=== PATIENT | male | born 1955 | race Caucasian/White ===

== ENCOUNTER → 2018-12-24 12:15 | Outpatient (CLI) | payer SELFPAY ==
[2016-05-06 00:45] VITALS: BMI 44.3
[2018-12-24 12:50] LABS: Absolute Lymphocyte Count 0.75 X10^3/ul (0.83-4.51); Absolute Neutrophil Count 3.4 X10^3/uL (2.0-7.7); Basophil# 0.02 X10^3/uL; Basophil% 0.4 % (0-1); Eosinophil# 0.51 X10^3/uL; Eosinophils% 9.6 % (0-5); Hematocrit 27.6 % (40-54); Hemoglobin 8.7 g/dl (13.0-16.5); Lymphocyte # 0.75 X10^3/ul (4.0); Lymphocyte % 14.2 % (19-41); Mean Corp Hgb Conc 31.5 g/gl (32-36); Mean Corpuscular Hgb 30.9 pg (27.0-32.0); Mean Corpuscular Volume 97.9 fL (80-94); Mean Platelet Vol. 9.3 fl (6.2-12.0); Monocyte# 0.58 X10^3/uL; Neutrophil # 3.42 X10^3/uL (2.7-7.7); Neutrophil % 64.6 % (47-70); Platelet Count 214 K/mm3 (150-450); RBC Distribution Width CV 18.9 % (11.6-14.6); RBC Distribution Width SD 67.5 fl (35.1-43.9); Red Blood Count 2.82 M/mm3 (4.6-6.2); White Blood Count 5.3 K/mm3 (4.4-11.0)
[2018-12-24 12:54] LABS: Differential Indicated SCAN CRITERIA MET; POSITIVE COUNT NO; POSITIVE DIFFERENTIAL NO; POSITIVE MORPHOLOGY YES
[2018-12-24 13:13] LABS: Anion Gap 11 (5-15); BUN 52 mg/dL (7-18); BUN/Creat Ratio 27.2 RATIO (10-20); Calcium,Total 8.1 mg/dL (8.5-10.1); Chloride 98 mmol/L (98-107); Creatinine, Serum 1.91 mg/dL (0.70-1.30); EST Glomerular Filtration Rate 38 mL/min (>60); Est Glom Filt Rate - Afr Amer 46 mL/min (>60); Glucose 116 mg/dL (74-106); Potassium 4.8 mmol/L (3.5-5.1); Sodium Level 135 mmol/L (136-145)
== END ==
PROVIDERS: Family Provider Preventive Medicine Occupational Medicine; PCP Preventive Medicine Occupational Medicine; Referring Provider Family Medicine; Visit Provider Family Medicine
DX: N18.9 Chronic kidney disease, unspecified (principal); D64.9 Anemia, unspecified
CPT/HCPCS: 80048; 85025

== ENCOUNTER → 2019-12-21 16:36 | Outpatient (CLI) | payer BC, SELFPAY ==
[2016-05-06 00:45] VITALS: BMI 44.3
== END ==
PROVIDERS: PCP Preventive Medicine Occupational Medicine; Referring Provider Preventive Medicine Occupational Medicine; Visit Provider Preventive Medicine Occupational Medicine
DX: E11.9 Type 2 diabetes mellitus without complications (principal); I10 Essential (primary) hypertension; E78.5 Hyperlipidemia, unspecified; D50.9 Iron deficiency anemia, unspecified; Z12.5 Encounter for screening for malignant neoplasm of prostate
CPT/HCPCS: 36415

== ENCOUNTER 2021-05-30 10:24 | Inpatient (IN) | payer MEDICARE, OTHER, SELFPAY ==
[2021-05-30] VITALS (11 sets, daily range): BP systolic 102–115; BP diastolic 53–83; PULSE 62–75; RESP 15–18; TEMP 36.4–37.1; O2SAT 91–100; BMI 44.5; BMI 44.0
[2021-05-30 10:30] LABS: Bedside Glucose 54 mg/dL (70-110)
--- NOTE | 2021-05-30 10:41 | EKG12_ITS ---
Test Reason : FALL Blood Pressure : / mmHG Vent. Rate : 075 BPM Atrial Rate : 074 BPM P-R Int : 272 ms QRS Dur : 166 ms QT Int : 486 ms P-R-T Axes : 000 141 021 degrees QTc Int : 542 ms Sinus rhythm with 1st degree A-V block Right bundle branch block Abnormal ECG Confirmed by RAFFI MARTELL, ROD ([id number]), editor at large TRISTON SCHMITZ ([id number]) on 06/01/2021 9:24:31 AM Referred By: SYLVAIN Confirmed By:RONALD NUGENT MD
[2021-05-30] MEDS: Dextrose 50%-Water 25 GM/50 ML DISP.SYRIN IV (10:49)
[2021-05-30 11:45] LABS: Bedside Glucose 99 mg/dL (70-110)
--- NOTE | 2021-05-30 13:14 | EDS_ITS ---
HPI History of Present Illness Chief Complaint: Hypoglycemia Informant: patient Narrative Narrative: Patient was in the shower and started feeling shaky and lightheaded and had a syncopal episode. He was holding onto a railing in the shower and let himself down easily without falling and injuring himself. He states he also had a minor injury from a similar episode 4 or 5 days ago. He hit the side of his neck and had seen a chiropractor for it who did some adjustments that helped. He denies any numbness or tingling anywhere or neurologic symptoms otherwise. He denies feeling any prodromal chest pain or shortness of breath. He states he has been on a keto diet trying to lose weight which has been successful, for the past 5 months, and he is eating a lot less carbs. He is a type II diabetic and on insulin, he has decreased his dose accordingly, and keeping track of how much carbohydrate he is eating every day. He states his blood sugars have been good, between 100-150 most days. Today was 85 which is lower than usual. EMS responded after his episode today, his blood sugar was 58, they gave him glucose, and afterwards it was 57. He was alert and somnolent. He still feels that way now denies any other symptoms. No recent illness. He states he was feeling fine before this happened. He admits that he did not eat much in the way of carbohydrate for breakfast this morning despite taking his insulin although he did eat. He has had really nothing to drink. [facility] Medical History (Updated 05/30/21 @ 15:[address] Candelario Humphrey MD) Asthma Atrial fibrillation BiPAP (biphasic positive airway pressure) dependence Diabetes Former smoker Hernia Hypertension Irregular heart beat Sleep apnea Home Medications aspirin 81 mg PO DAILY@0800 05/05/16 [History Last Taken 05/30/21] furosemide 40 mg PO DAILY 05/05/16 [History Last Taken 05/30/21] glipizide 5 mg PO DAILY 05/05/16 [History Last Taken 05/30/21] glipizide 10 mg PO QHS 05/05/16 [History Last Taken 05/29/21] lisinopril 5 mg PO QHS 05/05/16 [History Last Taken 05/29/21] tramadol 100 mg PO Q6H PRN PRN 05/06/16 [History Last Taken 05/30/21] allopurinol 300 mg PO DAILY #1 tablet 05/07/16 [Rx Last Taken 05/30/21] Xarelto 10 mg PO DAILY 05/30/21 [History Last Taken 05/29/21] ascorbic acid (vitamin C) 1 g PO DAILY 05/30/21 [History Last Taken 05/30/21] cholecalciferol (vitamin D3) 250 mcg PO DAILY 05/30/21 [History Last Taken 05/29/21] doxycycline hyclate 100 mg PO BID 05/30/21 [History Last Taken 05/30/21] ezetimibe 10 mg PO QHS 05/30/21 [History Last Taken 05/29/21] ferrous sulfate 325 mg PO DAILY 05/30/21 [History Last Taken 05/30/21] gabapentin 600 mg PO QHS 05/30/21 [History Last Taken 05/29/21] insulin glargine U-300 conc [Toujeo Max U-300 SoloStar] 18 unit SUBCUT DAILY 05/30/21 [History Last Taken 05/30/21] liraglutide [Victoza 3-Maksim] 0.6 mg SUBCUT DAILY 05/30/21 [History Last Taken 05/30/21] metformin 500 mg PO BID 05/30/21 [History Last Taken 05/30/21] omeprazole 40 mg PO DAILY 05/30/21 [History Last Taken 05/30/21] sotalol 160 mg PO BID 05/30/21 [History Last Taken 05/30/21] zinc 50 mg PO DAILY 05/30/21 [History Last Taken 05/29/21] Allergy/AdvReac Type Severity Reaction Status Date / Time azithromycin [From Zithromax] Allergy Unknown Verified 05/05/16 19:38 Sulfa (Sulfonamide Allergy Unknown Verified 05/05/16 19:38 Antibiotics) Surgical History (Updated 05/30/21 @ 10:37 by Hillary Reese) Hx of tonsillectomy Social History Smoking Status: Former smoker ROS ROS ED Constitutional Constitutional ED: Reports as per HPI and malaise; Denies chills or fever(s) Eyes Eyes: Denies change in vision or diplopia ENT ENT ED: Denies rhinorrhea or sore throat Cardiovascular Cardiovascular: Denies chest pain or palpitations Respiratory/Chest Respiratory/Chest: Denies cough or dyspnea Gastrointestinal Gastrointestinal: Denies abdominal pain, diarrhea, nausea or vomiting Genitourinary Genitourinary ED: Denies dysuria or hematuria Musculoskeletal Musculoskeletal: Denies back pain or neck pain Integumentary Denies abscess or rash Neurologic Neurologic: Denies headache(s), paresthesias or weakness Psychiatric Psychiatric: Denies anxiety or suicidal thoughts EXAM Physical Exam Const Vital Signs: 05/30/21 10:25 05/30/21 10:31 05/30/21 13:16 Temperature 97.6 F L 97.6 F L Temperature Source Oral Oral Pulse Rate 75 75 62 Respiratory Rate 18 18 16 Blood Pressure 115/83 H 115/83 H 102/53 L Blood Pressure Mean 93 93 69 Pulse Ox 91 97 98 Oxygen Delivery Method Room Air Room Air Oxygen Flow Rate (L/min) 2 05/30/21 14:04 05/30/21 14:52 Temperature Temperature Source Pulse Rate 64 66 Respiratory Rate 16 18 Blood Pressure 108/61 112/82 H Blood Pressure Mean 76 92 Pulse Ox 100 100 Oxygen Delivery Method Room Air Oxygen Flow Rate (L/min) Positive well nourished, well developed and obese Constitutional Narrative: Somnolent but alerts easily to voice and conversive, does not require repeat stimulation to remain alert General Appearance ED: well developed and NAD Nutritional Appearance: obese HEENT Reports moist mucous membranes normocephalic and atraumatic Eyes PERRL and EOMs intact bilaterally Neck full ROM and supple Resp normal respiratory effort and clear to auscultation bilaterally Cardio regular rate, regular rhythm and no murmurs Rate: Negative for tachycardic GI non-tender and non-distended Auscultation: normoactive bowel sounds Palpation: soft Back/Spine no CVA tenderness General Back: other FROM Extremity Extremity Narrative: Chronic bilateral lower extremity symmetric edema with signs of stasis dermatitis and a couple of abrasions that do not appear to be infected or tender. General Extremety ED: Yes edema; Negative for pulses abnormal or tenderness General Extremity: edema; Negative for pulses abnormal Neuro oriented x3, CN's II-XII intact bilaterally and no sensory deficits noted Sensorium / Orientation: awake and alert Motor Exam: strength 5/5 throughout Skin no rashes or lesions noted and no wounds MDM MDM MDM Narrative Medical decision making narrative: Patient was given IV D50 and given something oral to eat. On reevaluation his blood sugar is 99, he is still somnolent although he states he feels a little better, and his systolic blood pressure is 72. Therefore, he was given IV fluids as he is likely somewhat dehydrated, and labs were obtained; his blood pressure came up to over 100. His EKG has artifact, but does not show anything acute. He does have some PVCs with it. The morphology and axis is otherwise unchanged grossly. Given this and his sugar better and still lethargic, I ordered some IV fluids and some more testing. He is uremic and has acute renal failure with an elevated troponin, no evidence of a STEMI or acute ischemia on the EKG. Plan is for admission to PCU. Lab Data Attestation: I reviewed the patient's lab results. Labs: Laboratory Results - last 24 hr 05/30/21 05/30/21 05/30/21 10:26 11:39 13:15 WBC 8.3 RBC 3.52 L Hgb 11.2 L Hct 34.5 L MCV 98.0 H MCH 31.8 MCHC 32.5 RDW Std Deviation 59.9 H RDW Coeff of Miguel 16.7 H Plt Count 150 MPV 10.1 Immature Gran % (Auto) 0.700 Neut % (Auto) 83.4 H Lymph % (Auto) 6.4 L [place] % (Auto) 6.9 Eos % (Auto) 2.1 Baso % (Auto) 0.5 Absolute Neuts (auto) 6.9 Absolute Lymphs (auto) 0.53 L Nucleated RBC % 0 Sodium Potassium Chloride Carbon Dioxide Anion Gap BUN Creatinine Estim Creat Clear Calc Est GFR (MDRD) Af Amer Est GFR (MDRD) Non-Af BUN/Creatinine Ratio Glucose Calcium Troponin I High Sens POC Glucose 54 L 99 05/30/21 13:15 WBC RBC Hgb Hct MCV MCH MCHC RDW Std Deviation RDW Coeff of Miguel Plt Count MPV Immature Gran % (Auto) Neut % (Auto) Lymph % (Auto) [place] % (Auto) Eos % (Auto) Baso % (Auto) Absolute Neuts (auto) Absolute Lymphs (auto) Nucleated RBC % Sodium 131 L Potassium 4.7 Chloride 102 Carbon Dioxide 20.0 L Anion Gap 9 BUN 125 H* Creatinine 3.81 H Estim Creat Clear Calc 19.96 Est GFR (MDRD) Af Amer 21 L Est GFR (MDRD) Non-Af 17 L BUN/Creatinine Ratio 32.8 H Glucose 124 H Calcium 7.5 L Troponin I High Sens 139.1 H* POC Glucose EKG Initial EKG: Interpretation: Sinus Rhythm, No Acute Injury Pattern and LAFB Comments: PVCs Prior EKG tracings: available for review Prior: Unchanged Discharge Plan Dx/Rx/DC Orders Clinical Impression: BELLA (acute kidney injury), Dehydration, Syncope, Diabetic hypoglycemia Disposition Disposition: Acute Care Hospital [facility]
[2021-05-30] MEDS: 0.9% Normal Saline 1,000 ML 999 ML IV (13:20)
[2021-05-30 13:28] LABS: Absolute Lymphocyte Count 0.53 X10^3/uL (0.83-4.51); Absolute Neutrophil Count 6.9 X10^3/uL (2.0-7.7); Basophil# 0.04 X10^3/uL; Basophil% 0.5 % (0-1); Eosinophil# 0.17 X10^3/uL; Eosinophils% 2.1 % (0-5); Hematocrit 34.5 % (40-54); Hemoglobin 11.2 g/dL (13.0-16.5); Lymphocyte # 0.53 X10^3/ul (0.83-4.51); Lymphocyte % 6.4 % (19-41); Mean Corp Hgb Conc 32.5 g/dL (32-36); Mean Corpuscular Hgb 31.8 pg (27.0-32.0); Mean Platelet Vol. 10.1 fl (6.2-12.0); Monocyte# 0.57 X10^3/uL; Monocyte% 6.9 % (0-10); NRBC Flagged by Analyzer 0 % (0-5); Neutrophil % 83.4 % (47-70); POSITIVE DIFFERENTIAL YES; Platelet Count 150 K/mm3 (150-450); RBC Distribution Width CV 16.7 % (11.6-14.6); RBC Distribution Width SD 59.9 fl (35.1-43.9); Red Blood Count 3.52 M/mm3 (4.6-6.2); White Blood Count 8.3 K/mm3 (4.4-11.0)
[2021-05-30 13:31] LABS: Differential Indicated SCAN CRITERIA MET
[2021-05-30 13:48] LABS: Anion Gap 9 (5-15); BUN 125 mg/dL (7-18); BUN/Creat Ratio 32.8 RATIO (10-20); Calcium,Total 7.5 mg/dL (8.5-10.1); Chloride 102 mmol/L (98-107); Creatinine, Serum 3.81 mg/dL (0.70-1.30); EST Glomerular Filtration Rate 17 mL/min (>60); Est Glom Filt Rate - Afr Amer 21 mL/min (>60); Estimated Creatinine Clearance 19.96 ml/min; Glucose 124 mg/dL (74-106); Potassium 4.7 mmol/L (3.5-5.1); Sodium Level 131 mmol/L (136-145); Troponin-I HS 139.1 pg/mL (3.0-78.5)
--- NOTE | 2021-05-30 14:21 | NURSING ---
DR REEVES FOR DR NARAYAN
--- NOTE | 2021-05-30 15:06 | NURSING ---
PCU TERELETSKY DEHYDRATION, BELLA, ELEVATED TROP
[2021-05-30] MEDS: 0.9% Normal Saline 1,000 ML 175 ML IV (16:17)
[2021-05-30 16:35] LABS: Bedside Glucose 146 mg/dL (70-110)
--- NOTE | 2021-05-30 19:08 | PCM.HP.STD ---
HPI - General General Date of Admission: 05/30/21 Date of Service: 05/30/21 Chief Complaint: Syncopal episode, hypoglycemia HPI Narrative SMITA FAJARDO, is a 65 M who presents to the emergency room at [facility] after having a brief syncopal episode at home while he was in the shower. Squad responded to his home and upon arrival, his blood sugar was 58, and they gave him glucose, afterwards it was 57., Patient states that he has been dieting at home and he is attempted to lose weight cutting back on his carbohydrates. Work-up in the emergency room included a CBC which was abnormal for a hemoglobin of 11.2, chemistry profile was obtained which was abnormal for a BUN of 125, creatinine of 3.81, and the patient's troponin was elevated at 139. Patient's sodium was slightly low at 131. Patient was given IV fluids, he will be admitted to PCU for acute kidney injury, he will be given IV fluids, and his cardiac enzymes will be cycled. I feel his troponin elevation is most probably secondary to his elevated creatinine. [facility] Medical History (Updated 05/30/21 @ 15:[address] Candelario Humphrey MD) Asthma Atrial fibrillation BiPAP (biphasic positive airway pressure) dependence Diabetes Former smoker Hernia Hypertension Irregular heart beat Sleep apnea Home Medications aspirin 81 mg PO DAILY@0800 05/05/16 [History Last Taken 05/30/21] furosemide 40 mg PO DAILY 05/05/16 [History Last Taken 05/30/21] glipizide 5 mg PO DAILY 05/05/16 [History Last Taken 05/30/21] glipizide 10 mg PO QHS 05/05/16 [History Last Taken 05/29/21] lisinopril 5 mg PO QHS 05/05/16 [History Last Taken 05/29/21] tramadol 100 mg PO Q6H PRN PRN 05/06/16 [History Last Taken 05/30/21] allopurinol 300 mg PO DAILY #1 tablet 05/07/16 [Rx Last Taken 05/30/21] Xarelto 10 mg PO DAILY 05/30/21 [History Last Taken 05/29/21] ascorbic acid (vitamin C) 1 g PO DAILY 05/30/21 [History Last Taken 05/30/21] cholecalciferol (vitamin D3) 250 mcg PO DAILY 05/30/21 [History Last Taken 05/29/21] doxycycline hyclate 100 mg PO BID 05/30/21 [History Last Taken 05/30/21] ezetimibe 10 mg PO QHS 05/30/21 [History Last Taken 05/29/21] ferrous sulfate 325 mg PO DAILY 05/30/21 [History Last Taken 05/30/21] gabapentin 600 mg PO QHS 05/30/21 [History Last Taken 05/29/21] insulin glargine U-300 conc [Toujeo Max U-300 SoloStar] 18 unit SUBCUT DAILY 05/30/21 [History Last Taken 05/30/21] liraglutide [Victoza 3-Maksim] 0.6 mg SUBCUT DAILY 05/30/21 [History Last Taken 05/30/21] metformin 500 mg PO BID 05/30/21 [History Last Taken 05/30/21] omeprazole 40 mg PO DAILY 05/30/21 [History Last Taken 05/30/21] sotalol 160 mg PO BID 05/30/21 [History Last Taken 05/30/21] zinc 50 mg PO DAILY 05/30/21 [History Last Taken 05/29/21] Allergy/AdvReac Type Severity Reaction Status Date / Time azithromycin [From Zithromax] Allergy Unknown Verified 05/05/16 19:38 Sulfa (Sulfonamide Allergy Unknown Verified 05/05/16 19:38 Antibiotics) Surgical History (Updated 05/30/21 @ 10:37 by Hillary Reese) Hx of tonsillectomy Social History Smoking Status: Former smoker ROS Constitutional Constitutional: Denies anorexia, chills, fatigue, fever(s) or night sweats Eyes Eyes: Denies blurry vision, change in vision or double vision ENT HEENT: Denies abnormal hearing, dysphagia, ear pain, headache(s) or hearing loss Cardiovascular Cardiovascular: Denies chest pain, claudication, dyspnea on exertion, edema or lightheadedness Respiratory/Chest Respiratory/Chest: Denies cough, dyspnea, excessive phlegm production, hemoptysis or productive cough Gastrointestinal Gastrointestinal: Denies abdominal pain, coffee ground emesis, diarrhea, dyspepsia or hematemesis Genitourinary Genitourinary: Denies burning urination, difficulty urinating, dysuria or hematuria Musculoskeletal Musculoskeletal: Denies arthralgias, back pain, joint pain or joint swelling Neurologic Neurologic: Reports syncope; Denies abnormal gait, abnormal speech or focal weakness Psychiatric Psychiatric: Denies anxiety or depression Endocrine Endocrinology: Denies change in body appearance, cold intolerance or heat intolerance Hematologic/Lymphatic Hematologic/Lymphatic: Denies anemia, easy bleeding, easy bruising or lymphadenopathy Allergic/Immunologic Allergic/Immunologic: Denies eczemia or asthma Vital Signs Vital Signs Vital Signs: 05/30/21 10:25 05/30/21 10:31 05/30/21 13:16 Temperature 97.6 F L 97.6 F L Temperature Source Oral Oral Pulse Rate 75 75 62 Respiratory Rate 18 18 16 Respiratory Effort Respiratory Depth Respiratory Pattern Blood Pressure 115/83 H 115/83 H 102/53 L Blood Pressure Mean 93 93 69 Blood Pressure Source Blood Pressure Position Blood Pressure Location Pulse Ox 91 97 98 Oxygen Delivery Method Room Air Room Air Oxygen Flow Rate (L/min) 2 05/30/21 14:04 05/30/21 14:52 05/30/21 15:08 Temperature 97.9 F Temperature Source Temporal Pulse Rate 64 66 66 Respiratory Rate 16 18 18 Respiratory Effort Respiratory Depth Respiratory Pattern Blood Pressure 108/61 112/82 H 113/66 Blood Pressure Mean 76 92 81 Blood Pressure Source Blood Pressure Position Blood Pressure Location Pulse Ox 100 100 100 Oxygen Delivery Method Room Air Oxygen Flow Rate (L/min) 05/30/21 15:39 05/30/21 15:42 05/30/21 16:52 Temperature 98.4 F Temperature Source Oral Pulse Rate 68 65 Respiratory Rate 15 Respiratory Effort Normal Non-Labored Respiratory Depth Normal Respiratory Pattern Normal Blood Pressure 103/63 Blood Pressure Mean 76 Blood Pressure Source Monitor Blood Pressure Position Semi-Fowlers Blood Pressure Location Right Arm Pulse Ox 96 Oxygen Delivery Method Room Air Room Air Oxygen Flow Rate (L/min) Weight Weight: 139.2 kg Body Mass Index (BMI) 44.0 Physical Exam Const alert, oriented x3, no apparent distress and healthy appearing General Appearance: cooperative, well kempt and well developed Orientation / Consciousness: awake, oriented to person, oriented to place and oriented to time HEENT normocephalic and moist oral mucous membranes Eyes PERRL, EOMs intact bilaterally and conjunctivae normal Neck nuchal rigidity, supple, no JVD, thyroid normal and no carotid bruits General: trachea midline Resp normal respiratory effort, no retractions, no use of accessory muscles and clear to auscultation bilaterally Auscultation: Negative for rales, rhonchi or wheezes Cardio regular rate, regular rhythm, S1 normal heart sound, S2 normal heart sound, no murmurs, no rub and no gallops GI normal to inspection, nondistended, normoactive bowel sounds, soft to palpation, non-tender and non-distended GI Narrative: Patient is morbidly obese Extremity no clubbing, cyanosis or edema Skin no rashes or lesions noted, no wounds and skin turgor normal General Skin Exam: no breakdown Neuro oriented x3, CN's II-XII intact bilaterally, no focal motor deficits and no sensory deficits noted Sensorium / Orientation: awake and alert Speech: speech normal Psych thought process normal and affect normal Results Lab / Micro Data Result Diagrams: 05/30/21 13:15 05/30/21 13:15 Labs: Laboratory Results - last 24 hr 05/30/21 10:26: POC Glucose 54 L 05/30/21 11:39: POC Glucose 99 05/30/21 13:15: WBC 8.3, RBC 3.52 L, Hgb 11.2 L, Hct 34.5 L, MCV 98.0 H, MCH 31.8, MCHC 32.5, RDW Std Deviation 59.9 H, RDW Coeff of Miguel 16.7 H, Plt Count 150, MPV 10.1, Immature Gran % (Auto) 0.700, Neut % (Auto) 83.4 H, Lymph % (Auto) 6.4 L, [place] % (Auto) 6.9, Eos % (Auto) 2.1, Baso % (Auto) 0.5, Absolute Neuts (auto) 6.9, Absolute Lymphs (auto) 0.53 L, Nucleated RBC % 0 05/30/21 13:15: Sodium 131 L, Potassium 4.7, Chloride 102, Carbon Dioxide 20.0 L, Anion Gap 9, BUN 125 H*, Creatinine 3.81 H, Estim Creat Clear Calc 19.96, Est GFR (MDRD) Af Amer 21 L, Est GFR (MDRD) Non-Af 17 L, BUN/Creatinine Ratio 32.8 H, Glucose 124 H, Calcium 7.5 L, Troponin I High Sens 139.1 H* 05/30/21 16:17: POC Glucose 146 H Assessment & Plan Assessment/Plan (1) BELLA (acute kidney injury): PLAN: 1. Probable acute kidney injury, I do not have a recent creatinine here on the patient, his last creatinine in 2019 according to hospital records here was 1.91-patient will be admitted to PCU, he will be given IV fluids, labs will be monitored, it may be necessary to contact his PCPs office tomorrow to ascertain his baseline creatinine #2 hypoglycemia-corrected at this time #3 type 2 diabetes-blood sugars will be monitored #4 elevated troponin-probably secondary to elevated creatinine, I will obtain serial troponin measurements #5 morbid obesity #6 obstructive sleep apnea-patient's brought in his BiPAP machine, he will use it while he is in the hospital here #7 syncope-secondary to hypoglycemia and acute kidney injury #8 paroxysmal atrial fibrillation-patient is currently taking Xarelto and sotalol, he is in sinus rhythm at this time #9 essential hypertension Charges/Coding Visit Charges Inpatient E&M: 78612 Init Hosp L3
[2021-05-30 21:56] LABS: Troponin-I HS 419.2 pg/mL (3.0-78.5)
[2021-05-30] MEDS: 0.9% Normal Saline 1,000 ML 125 ML IV (22:06)
[2021-05-30] MEDS: Gabapentin 300 MG Capsule 600 MG PO (22:14)
[2021-05-30] MEDS: Sotalol Hydrochloride 80 MG Tablet 160 MG PO (22:14)
--- NOTE | 2021-05-30 22:14 | ECHOD_ITS ---
Reason For Study: SYNCOPE Procedure This was a 2D Doppler, Color Flow transthoracic echocardiogram. The study was technically difficult. Exam performed portable in patient room. Left Ventricle Normal LV size. The estimated ejection fraction is 60-65 %. Unable to assess diastolic dysfunction. No regional wall motion abnormalities noted. Right Ventricle Mildly dilated right ventricle. Normal systolic function. Atria The left atrium is mildly enlarged. Normal right atrium. No doppler evidence for ASD. Mitral Valve There is moderate mitral annular calcification. There is no mitral valve stenosis. There is no mitral regurgitation noted. Tricuspid Valve There is no tricuspid stenosis. Trivial tricuspid valve insufficiency. Pulmonary artery systolic pressure is 70-75 mmHg. Aortic Valve Trisinus/trileaflet aortic valve. There is no aortic stenosis. No aortic valve insufficiency. Pulmonic Valve There is no pulmonic valvular stenosis. No pulmonic valve insufficiency. Great Vessels Mildly dilated aortic root. Pericardium/Pleural No pericardial effusion. Medication Definity deferred due to elevated PAP. MMode/2D Measurements & Calculations LVIDd: 4.8 cm IVSd: 1.3 cm Ao root diam: 4.1 cm LVIDs: 2.8 cm LVPWd: 1.2 cm RVDd: 4.6 cm FS: 42.8 % LAV(MOD-bp): 100.9 ml LA A4 area: 28.6 cm2 LA dimension(2D): 4.5 cm LAV(MOD-bp) Indexed: 40.4 ml/m2 LAV(MOD-sp2): 82.1 ml LAV(MOD-sp4): 88.4 ml RA A4 area: 26.4 cm2 Time Measurements MV dec time: 0.22 sec Doppler Measurements & Calculations MV E max florian: 103.1 cm/sec Lat Peak E' Florian: 4.0 cm/sec Med Peak E' Florian: 6.0 cm/sec MV A max florian: 52.9 cm/sec E/E' lat: 25.8 E/E' med: 17.2 MV E/A: 1.9 Ao V2 max: 134.2 cm/sec LV V1 max: 90.4 cm/sec TR max florian: 400.4 cm/sec Ao max P.3 mmHg LV V1 max P.3 mmHg TR max P.1 mmHg Ao V2 mean: 91.9 cm/sec LV V1 mean P.7 mmHg Ao mean P.9 mmHg LV V1 mean: 61.0 cm/sec Ao V2 VTI: 23.4 cm LV V1 VTI: 17.6 cm ECHO/Echo Complete Interpretation Summary The estimated ejection fraction is 60-65 %. Unable to assess diastolic dysfunction. Mildly dilated right ventricle. The left atrium is mildly enlarged. Pulmonary artery systolic pressure is 70-75 mmHg. Mildly dilated aortic root. Ordering Physician: Vesta Pritchett Referring Physician: KAYLEIGH NESS Performed By: Gita Hassan, RDCS, RVT
[2021-05-30] MEDS: Insulin Lispro 100 UNIT/ML INSULN.PEN SC (22:15)
[2021-05-30] MEDS: Acetaminophen 325 MG Tablet 650 MG PO (22:20)
[2021-05-30 22:56] LABS: Bedside Glucose 283 mg/dL (70-110)
[2021-05-31] VITALS (9 sets, daily range): BP systolic 96–140; BP diastolic 48–65; PULSE 60–71; RESP 16–18; TEMP 36.5–37.2; O2SAT 96–100
[2021-05-31 01:23] LABS: Absolute Lymphocyte Count 0.58 X10^3/uL (0.83-4.51); Absolute Neutrophil Count 3.9 X10^3/uL (2.0-7.7); Basophil# 0.02 X10^3/uL; Basophil% 0.4 % (0-1); Eosinophil# 0.19 X10^3/uL; Eosinophils% 3.6 % (0-5); Hematocrit 31.7 % (40-54); Hemoglobin 10.5 g/dL (13.0-16.5); Lymphocyte # 0.58 X10^3/ul (0.83-4.51); Mean Corp Hgb Conc 33.1 g/dL (32-36); Mean Corpuscular Hgb 32.4 pg (27.0-32.0); Mean Corpuscular Volume 97.8 fL (80-94); Mean Platelet Vol. 9.4 fl (6.2-12.0); Monocyte# 0.63 X10^3/uL; Monocyte% 11.9 % (0-10); NRBC Flagged by Analyzer 0 % (0-5); Neutrophil # 3.85 X10^3/uL (2.7-7.7); Neutrophil % 72.7 % (47-70); POSITIVE DIFFERENTIAL YES; Platelet Count 137 K/mm3 (150-450); RBC Distribution Width CV 16.5 % (11.6-14.6); RBC Distribution Width SD 59.6 fl (35.1-43.9); Red Blood Count 3.24 M/mm3 (4.6-6.2); White Blood Count 5.3 K/mm3 (4.4-11.0)
[2021-05-31 01:50] LABS: Differential Indicated SCAN CRITERIA MET
[2021-05-31 01:59] LABS: Troponin-I HS 423.6 pg/mL (3.0-78.5)
[2021-05-31 02:00] LABS: Anion Gap 10 (5-15); BUN 113 mg/dL (7-18); BUN/Creat Ratio 36.5 RATIO (10-20); Calcium,Total 7.5 mg/dL (8.5-10.1); Chloride 106 mmol/L (98-107); EST Glomerular Filtration Rate 22 mL/min (>60); Est Glom Filt Rate - Afr Amer 26 mL/min (>60); Estimated Creatinine Clearance 24.53 ml/min; Glucose 195 mg/dL (74-106); Potassium 4.5 mmol/L (3.5-5.1); Sodium Level 135 mmol/L (136-145)
[2021-05-31] MEDS: 0.9% Normal Saline 1,000 ML 125 ML IV (06:09)
[2021-05-31 06:40] LABS: Bedside Glucose 116 mg/dL (70-110)
[2021-05-31] MEDS: Aspirin 81 MG TAB.CHEW PO (08:42)
[2021-05-31] MEDS: Pantoprazole Sodium 40 MG Tablet PO (08:42)
[2021-05-31] MEDS: Sotalol Hydrochloride 80 MG Tablet 160 MG PO ×2 (08:42→21:44)
[2021-05-31] MEDS: Rivaroxaban 10 MG Tablet PO (08:43)
[2021-05-31] MEDS: Acetaminophen 325 MG Tablet 650 MG PO ×2 (08:50→16:10)
--- NOTE | 2021-05-31 11:10 | CASEMGMT ---
RN CM Face to Face with patient for initial transition planning/care coordination assessment. RN CM introduced self and role at [facility]. Patient lying in bed, alert and oriented. Patient willing to participate in assessment and is able to answer all questions appropriately. Care providers, pharmacy, and demographics verified. Patient wishes to discharge home, denies need for home health at this time. Patient states he has no further needs or concerns at this time. CM to follow for discharge planning needs that may arise. PCP: Gerri Specialists: Paramjit, chemotherapistParveen Preferred Pharmacy: [facility] Insurance: [facility], [facility] Prescription Benefit: yes, [employer] Living Will/HPOA: yes, Tenisha Centeno LNOK: Living Arrangements: Patient lives with in a single story home with no steps to enter the home. Patient states he is independent at home. Transportation: self/ DME/HHC: Patient states he has shower chair, grab bars, walker, bipap, and glucometer at home. Patient denies previous HHC or SNF. Disposition Plan: Patient to discharge home with family support and follow-up plans in place. Shirley HENDRICKS, RN, CM
[2021-05-31] MEDS: Insulin Lispro 100 UNIT/ML INSULN.PEN SC ×3 (12:02→21:49)
[2021-05-31 12:10] LABS: Bedside Glucose 198 mg/dL (70-110)
--- NOTE | 2021-05-31 12:44 | NURSING ---
Patient complaint of back and neck pain from fall at home. Patient given Tylenol per orders. Informed Dr. Gonzales of patient complaint of pain. Verbal order to continue with Tylenol administration.
[2021-05-31 13:14] LABS: Albumin, Serum 3.2 g/dL (3.2-5.0)
[2021-05-31] MEDS: 0.9% Normal Saline 1,000 ML 75 ML IV (14:01)
[2021-05-31 16:30] LABS: Bedside Glucose 300 mg/dL (70-110)
[2021-05-31 17:57] LABS: Bacteria 0 SEEN /hpf (None Seen); Mucous, Urine 0 SEEN /hpf (<or=2+); Red Blood Cells-Urine 0 SEEN /hpf (0-5); White Blood Cells 0 SEEN /hpf (0-5)
[2021-05-31 17:58] LABS: Color, Urine Yellow (Yellow); Glucose, Dipstick Normal (Normal); Ketone-Dipstick Negative (Negative); Leukocyte Esterase-Dipstick Negative /ul (Negative); Nitrite-Dipstick Negative (Negative); Occult Blood-Urine Negative /ul (Negative); Protein-Dipstick Negative (Negative); Urine Bilirubin Dipstick Negative (Negative); Urine Clarity Clear (Clear); Urine Urobilinogen Normal (Normal)
[2021-05-31 18:05] LABS: Squamous Epithelial Cells - UA 0-5 SEEN /hpf (0-5)
--- NOTE | 2021-05-31 19:31 | PCM.PN.HOSP ---
Subjective Subjective Patient was seen and examined today, his kidney functions appear improved today, he has chronic lower extremity stasis dermatitis changes as well as chronic edema, he states he has been to a vascular surgeon before and had a procedure done on his lower legs but was unable to describe the exact procedure to me. Patient complained to nursing today of various aches and pains and soreness where he fell and struck his back, patient pointed to an area on his scapula that was tender, I could not see any bruising there and it did not look swollen over the area. Objective Data Objective Data Vital Signs: Vital Signs Temp Pulse Resp BP Pulse Ox 98.3 F 71 16 120/58 L 96 05/31/21 14:00 05/31/21 15:06 05/31/21 14:00 05/31/21 14:00 05/31/21 14:00 Oxygen Flow Rate (L/min) 2 Oxygen Delivery Method Room Air Weight: 139.2 kg Body Mass Index (BMI) 44.0 Intake & Output: Intake and Output for Last 24 Hours 05/29/21 05/30/21 05/31/21 23:59 23:59 23:59 Intake Total 2460 / 2460 2783.33 / 2783.33 Balance 2460 / 2460 2783.33 / 2783.33 Lab / Micro Data Result Diagrams: 05/31/21 01:15 05/31/21 01:15 Labs: Laboratory Results - last 24 hr 05/30/21 21:29: Troponin I High Sens 419.2 H* 05/30/21 22:05: POC Glucose 283 H 05/31/21 01:15: WBC 5.3, RBC 3.24 L, Hgb 10.5 L, Hct 31.7 L, MCV 97.8 H, MCH 32.4 H, MCHC 33.1, RDW Std Deviation 59.6 H, RDW Coeff of Miguel 16.5 H, Plt Count 137 L, MPV 9.4, Immature Gran % (Auto) 0.400, Neut % (Auto) 72.7 H, Lymph % (Auto) 11.0 L, [place] % (Auto) 11.9 H, Eos % (Auto) 3.6, Baso % (Auto) 0.4, Absolute Neuts (auto) 3.9, Absolute Lymphs (auto) 0.58 L, Nucleated RBC % 0 05/31/21 01:15: Sodium 135 L, Potassium 4.5, Chloride 106, Carbon Dioxide 19.0 L, Anion Gap 10, BUN 113 H*, Creatinine 3.10 H, Estim Creat Clear Calc 24.53, Est GFR (MDRD) Af Amer 26 L, Est GFR (MDRD) Non-Af 22 L, BUN/Creatinine Ratio 36.5 H, Glucose 195 H, Calcium 7.5 L 05/31/21 01:15: Troponin I High Sens 423.6 H* 05/31/21 01:15: Albumin 3.2 05/31/21 06:27: POC Glucose 116 H 05/31/21 12:01: POC Glucose 198 H 05/31/21 16:11: POC Glucose 300 H 05/31/21 17:45: Urine Color Yellow, Urine Clarity Clear, Urine pH 6.0, Ur Specific [place] 1.010, Urine Protein Negative, Urine Glucose (UA) Normal, Urine Ketones Negative, Urine Occult Blood Negative, Urine Nitrite Negative, Urine Bilirubin Negative, Urine Urobilinogen Normal, Ur Leukocyte Esterase Negative, Urine RBC 0 SEEN, Urine WBC 0 SEEN, Ur Squamous Epith Cells 0-5 SEEN, Urine Bacteria 0 SEEN, Urine Mucus 0 SEEN Radiography Diagnostic Testing: Radiology Impression Echocardiogram 05/30/21 22:14 Interpretation Summary The estimated ejection fraction is 60-65 %. Unable to assess diastolic dysfunction. Mildly dilated right ventricle. The left atrium is mildly enlarged. Pulmonary artery systolic pressure is 70-75 mmHg. Mildly dilated aortic root. Ordering Physician: Vesta Pritchett Referring Physician: KAYLEIGH NESS Performed By: Gita Hassan, RDCS, RVT Physical Exam Const alert, oriented x3, no apparent distress and healthy appearing Constitutional Narrative: Patient is morbidly obese General Appearance: cooperative, well kempt and well developed Orientation / Consciousness: awake, oriented to person, oriented to place and oriented to time HEENT normocephalic, head/scalp atraumatic and moist oral mucous membranes Head and Scalp: normocephalic Eyes PERRL, EOMs intact bilaterally and conjunctivae normal Neck nuchal rigidity, supple, no JVD, thyroid normal and no carotid bruits General: trachea midline Resp normal respiratory effort and clear to auscultation bilaterally Auscultation: Negative for rales, rhonchi or wheezes Cardio regular rate, regular rhythm, S1 normal heart sound, S2 normal heart sound, no murmurs, no rub and no gallops GI normal to inspection, nondistended, normoactive bowel sounds, soft to palpation, non-tender and non-distended GI Narrative: Patient is morbidly obese Extremity Extremity Narrative: There is generalized edema noted over the patient's lower legs bilaterally along with stasis dermatitis changes of the skin General Extremity: edema Skin Skin Narrative: Stasis dermatitis changes are noted over both lower legs General Skin Exam: no breakdown Neuro oriented x3, CN's II-XII intact bilaterally, no focal motor deficits and no sensory deficits noted Sensorium / Orientation: awake and alert Speech: speech normal Psych thought process normal and affect normal Assessment & Plan Assessment/Plan (1) BELLA (acute kidney injury): PLAN: 1. Probable acute kidney injury, I was able to obtain a recent creatinine that had been performed on the patient at [facility], this was done in March 2021, his creatinine was 2.14. I have decided to reduce the patient's IV rate at this time, BMP will be repeated tomorrow #2 hypoglycemia-corrected at this time #3 type 2 diabetes-blood sugars will be monitored #4 elevated troponin-probably secondary to elevated creatinine, I do not think the patient has had a non-STEMI, patient's echocardiogram today showed evidence of pulmonary hypertension, LV function was normal. #5 morbid obesity #6 obstructive sleep apnea-patient's brought in his BiPAP machine, he will use it while he is in the hospital here #7 syncope-secondary to hypoglycemia and acute kidney injury #8 paroxysmal atrial fibrillation-patient is currently taking Xarelto and sotalol, he is in sinus rhythm at this time #9 essential hypertension #10 severe pulmonary hypertension Charges/Coding Visit Charges Inpatient E&M: 48019 Subs Hosp L2
[2021-05-31] MEDS: 0.9% Saline Lock 10 ML Syringe IV (19:54)
[2021-05-31] MEDS: traMADol 50 MG Tablet 100 MG PO (19:54)
[2021-05-31] MEDS: Gabapentin 300 MG Capsule 600 MG PO (21:44)
[2021-05-31 22:45] LABS: Bedside Glucose 235 mg/dL (70-110)
[2021-06-01 02:59] VITALS: PULSE 70
[2021-06-01 03:00] VITALS: BP 120/56; PULSE 58; RESP 16; TEMP 36.8; O2SAT 98
[2021-06-01] MEDS: 0.9% Normal Saline 1,000 ML 75 ML IV (03:31)
[2021-06-01] MEDS: Insulin Lispro 100 UNIT/ML INSULN.PEN SC ×2 (06:44→11:25)
[2021-06-01 06:56] LABS: Bedside Glucose 152 mg/dL (70-110)
[2021-06-01 07:00] VITALS: PULSE 61
[2021-06-01 07:15] LABS: Anion Gap 7 (5-15); BUN 78 mg/dL (7-18); BUN/Creat Ratio 42.4 RATIO (10-20); Chloride 111 mmol/L (98-107); Creatinine, Serum 1.84 mg/dL (0.70-1.30); EST Glomerular Filtration Rate 39 mL/min (>60); Est Glom Filt Rate - Afr Amer 48 mL/min (>60); Estimated Creatinine Clearance 41.33 ml/min; Glucose 158 mg/dL (74-106); Potassium 4.3 mmol/L (3.5-5.1); Sodium Level 141 mmol/L (136-145)
[2021-06-01 09:00] VITALS: BP 123/55; PULSE 62; RESP 18; TEMP 36.6; O2SAT 100
[2021-06-01] MEDS: traMADol 50 MG Tablet 100 MG PO (09:20)
[2021-06-01] MEDS: Aspirin 81 MG TAB.CHEW PO (09:20)
[2021-06-01] MEDS: Rivaroxaban 10 MG Tablet PO (09:20)
[2021-06-01] MEDS: Sotalol Hydrochloride 80 MG Tablet 160 MG PO (09:20)
[2021-06-01] MEDS: Pantoprazole Sodium 40 MG Tablet PO (09:20)
--- NOTE | 2021-06-01 11:00 | CASEMGMT ---
Palliative screening tool completed for [facility]. Patient does not qualify for palliative consult.
[2021-06-01 11:41] LABS: Bedside Glucose 235 mg/dL (70-110)
--- NOTE | 2021-06-01 11:51 | PCM.DC ---
Discharge Instructions Diet Discharge Diet: 1800 Calorie Control Diet Activity Discharge Activity: Return to Normal Activity Follow Up Care Test Results: Test results from this visit will be discussed in further detail at your follow-up appointment, if applicable. Discharge Plan Admission Admit Date/Time: 05/30/21 15:45 Primary Reason for Your Visit: acute kidney injury Attending Provider: London Nunes Primary Care Provider: Dionicio Talley Discharge Orders/Prescriptions Prescriptions: Continued aspirin 81 MG tablet,chewable 81 mg PO DAILY@0800 RF: 0 lisinopril 5 MG tablet 5 mg PO QHS RF: 0 tramadol 50 MG tablet 100 mg PO Q6H PRN PRN (Reason: Pain) RF: 0 allopurinol 300 MG tablet 300 mg PO DAILY Qty: 1 RF: 0 ezetimibe 10 mg tablet 10 mg PO QHS RF: 0 Victoza 3-Maksim 0.6 mg/0.1 mL (18 mg/3 mL) pen injector 0.6 mg SUBCUT DAILY RF: 0 Toujeo Max U-300 SoloStar 300 unit/mL (3 mL) insulin pen 18 unit SUBCUT DAILY RF: 0 metformin 500 mg tablet extended release 24 hr 500 mg PO BID RF: 0 ascorbic acid (vitamin C) 1,000 mg Tablet 1 g PO DAILY RF: 0 omeprazole 40 mg capsule,delayed release(DR/EC) 40 mg PO DAILY RF: 0 ferrous sulfate 325 mg (65 mg iron) Tablet 325 mg PO DAILY RF: 0 zinc 50 mg Tablet 50 mg PO DAILY RF: 0 cholecalciferol (vitamin D3) 250 mcg (10,000 unit) Capsule 250 mcg PO DAILY RF: 0 Xarelto 20 MG tablet 10 mg PO DAILY RF: 0 sotalol 160 mg tablet 160 mg PO BID RF: 0 gabapentin 600 mg tablet 600 mg PO QHS RF: 0 Changed furosemide 40 MG tablet 40 mg PO DAILY PRN PRN (Reason: edema) Qty: 0 RF: 0 Discontinued glipizide 10 MG tablet 10 mg PO QHS RF: 0 glipizide 5 MG tablet 5 mg PO DAILY RF: 0 doxycycline hyclate 100 mg tablet 100 mg PO BID RF: 0 Referrals / Follow Up: Vivek Brink MD [STAFF PHYSICIAN] - See Referral Note (call for appointment) Dionicio Talley DO [Primary Care Provider] - Within 2 Weeks Disposition Disposition (needs filled in before D/C Order can be placed): Home, Self Care
--- NOTE | 2021-06-01 12:09 | PHA.DC.MR ---
Pharmacy Service has performed discharge medication reconciliation for this patient. The patient's discharge medication list was reviewed for discrepancies and discrepancies were resolved. Home Medications aspirin 81 mg PO DAILY@0800 05/05/16 lisinopril 5 mg PO QHS 05/05/16 tramadol 100 mg PO Q6H PRN PRN 05/06/16 allopurinol 300 mg PO DAILY #1 tablet 05/07/16 Toujeo Max U-300 SoloStar 18 unit SUBCUT DAILY 05/30/21 Victoza 3-Maksim 0.6 mg SUBCUT DAILY 05/30/21 Xarelto 10 mg PO DAILY 05/30/21 ascorbic acid (vitamin C) 1 g PO DAILY 05/30/21 cholecalciferol (vitamin D3) 250 mcg PO DAILY 05/30/21 ezetimibe 10 mg PO QHS 05/30/21 ferrous sulfate 325 mg PO DAILY 05/30/21 gabapentin 600 mg PO QHS 05/30/21 metformin 500 mg PO BID 05/30/21 omeprazole 40 mg PO DAILY 05/30/21 sotalol 160 mg PO BID 05/30/21 zinc 50 mg PO DAILY 05/30/21 furosemide 40 mg PO DAILY PRN PRN #0 tab 06/01/21
--- NOTE | 2021-06-01 12:09 | CASEMGMT ---
Therapy is recommending OP therapy for pt's neck/back pain. Pt is agreeable and would like [facility]. Dr. Nunes aware and script faxed to [facility] for PT/OT. Original to pt and copy to chart. Pt voices no further questions/concerns/needs. Tamar COOK CM
--- NOTE | 2021-06-01 12:28 | CASEMGMT ---
Therapy is recommending OP therapy but Dr. Nunes does not feel that pt needs further therapy. Pt aware to speak with PCP, if he still feels he needs it once home. Tamar COOK CM
--- NOTE | 2021-06-02 16:37 | DS.PCM_ITS ---
Providers Date of Admission: 05/30/21 Date of Discharge: 06/01/21 Primary Care Physician: Dr. Dionicio Talley DO Reason For Visit: DEHYDRATION, BELLA, ELEVATED TROPONIN Diagnosis Discharge Diagnosis (1) BELLA (acute kidney injury): Status: Acute Code(s): N17.9 - Acute kidney failure, unspecified Plan: Assessment 1. Acute kidney injury-in part secondary to use of outpatient diuretics #2 hypoglycemia #3 type 2 diabetes #4 elevated troponin-probably secondary to elevated creatinine, I do not think the patient has had a non-STEMI #5 morbid obesity #6 obstructive sleep apnea #7 syncope #8 paroxysmal atrial fibrillation-patient is currently taking Xarelto and sotalol, he is in sinus rhythm at this time #9 essential hypertension #10 severe pulmonary hypertension Medications at Discharge Home Medications aspirin 81 mg PO DAILY@0800 05/05/16 lisinopril 5 mg PO QHS 05/05/16 tramadol 100 mg PO Q6H PRN PRN 05/06/16 allopurinol 300 mg PO DAILY #1 tablet 05/07/16 Toujeo Max U-300 SoloStar 18 unit SUBCUT DAILY 05/30/21 Victoza 3-Maksim 0.6 mg SUBCUT DAILY 05/30/21 Xarelto 10 mg PO DAILY 05/30/21 ascorbic acid (vitamin C) 1 g PO DAILY 05/30/21 cholecalciferol (vitamin D3) 250 mcg PO DAILY 05/30/21 ezetimibe 10 mg PO QHS 05/30/21 ferrous sulfate 325 mg PO DAILY 05/30/21 gabapentin 600 mg PO QHS 05/30/21 metformin 500 mg PO BID 05/30/21 omeprazole 40 mg PO DAILY 05/30/21 sotalol 160 mg PO BID 05/30/21 zinc 50 mg PO DAILY 05/30/21 furosemide 40 mg PO DAILY PRN PRN #0 tab 06/01/21 Hospital Course Operations None Procedures 2-D Echocardiogram Summary of Care Provided Minutes Spent on Discharge: 31 Hospital Course: This 65-year-old white male presented to the emergency room at [facility] after having a brief episode of syncope at home while he was in the shower. Patient did not sustain any serious injuries, squad responded to his home and his blood sugar was 58, he was given glucose, and brought to the emergency room for evaluation. Work-up in the emergency room included a CBC which was abnormal for hemoglobin of 11.2, chemistry profile was obtained and was abnormal for a BUN of 125 and a creatinine of 3.81. Patient's troponin was elevated at 139, patient's sodium was slightly low at 131. Patient was admitted to PCU for acute kidney injury, this was in part felt to be secondary to outpatient diuretic usage. Patient was given IV fluids and his labs were monitored. His creatinine improved during his hospital stay. Patient had an echocardiogram performed which showed a normal EF but severe pulmonary hypertension. On 06/01/2021, patient was seen and examined: On examination he appeared in good health and spirits. Vital signs as documented. Skin warm and dry and without overt rashes. Neck without JVD, neck was supple, trachea midline, thyroid was normal. Lungs clear bilaterally, normal air movement was noted. Heart exam notable for regular rhythm, normal sounds and absence of murmurs, rubs or gallops. Abdomen unremarkable and without evidence of organomegaly, masses, or abdominal aortic enlargement. Bowel sounds are present, abdomen is not distended. Extremities nonedematous, no cyanosis was noted, no clubbing was noted. Neuro: Cranial nerves II through XII are grossly intact, no focal motor deficits were noted, sensation to light touch and pinprick intact, motor exam 5/5 throughout. Psych: Patient is alert and oriented x3, he does not appear anxious or depressed, he does not appear agitated. Patient was felt to be stable for discharge on 06/01/2021, he was instructed to follow-up with pulmonary medicine concerning his severe pulmonary hypertension. Weight / BMI Weight Weight: 139.2 kg Body Mass Index (BMI) 44.0 ABG / Lab / Microbiology Data Result Diagrams: 05/31/21 01:15 06/01/21 05:55 D/C Instructions Discharge Diet: 1800 Calorie Control Diet Meaningful Use Info Meaningful Use Diagnoses (Choose all that apply): None applicable Discharge Plan Admission Admit Date/Time: 05/30/21 15:45 Primary Reason for Your Visit: acute kidney injury Attending Provider: London Nunes Primary Care Provider: Dionicio Talley Instructions Additional Instructions / Restrictions: Patient Problems: Altered Health Status related to Hospitalization Patient Goals: *Optimal Level of Health *Keep Appointments *Medication Compliance *Remain Safe Discharge Orders/Prescriptions Prescriptions: Continued aspirin 81 MG tablet,chewable 81 mg PO DAILY@0800 RF: 0 lisinopril 5 MG tablet 5 mg PO QHS RF: 0 tramadol 50 MG tablet 100 mg PO Q6H PRN PRN (Reason: Pain) RF: 0 allopurinol 300 MG tablet 300 mg PO DAILY Qty: 1 RF: 0 ezetimibe 10 mg tablet 10 mg PO QHS RF: 0 Victoza 3-Maksim 0.6 mg/0.1 mL (18 mg/3 mL) pen injector 0.6 mg SUBCUT DAILY RF: 0 Toujeo Max U-300 SoloStar 300 unit/mL (3 mL) insulin pen 18 unit SUBCUT DAILY RF: 0 metformin 500 mg tablet extended release 24 hr 500 mg PO BID RF: 0 ascorbic acid (vitamin C) 1,000 mg Tablet 1 g PO DAILY RF: 0 omeprazole 40 mg capsule,delayed release(DR/EC) 40 mg PO DAILY RF: 0 ferrous sulfate 325 mg (65 mg iron) Tablet 325 mg PO DAILY RF: 0 zinc 50 mg Tablet 50 mg PO DAILY RF: 0 cholecalciferol (vitamin D3) 250 mcg (10,000 unit) Capsule 250 mcg PO DAILY RF: 0 Xarelto 20 MG tablet 10 mg PO DAILY RF: 0 sotalol 160 mg tablet 160 mg PO BID RF: 0 gabapentin 600 mg tablet 600 mg PO QHS RF: 0 Changed furosemide 40 MG tablet 40 mg PO DAILY PRN PRN (Reason: edema) Qty: 0 RF: 0 Discontinued glipizide 10 MG tablet 10 mg PO QHS RF: 0 glipizide 5 MG tablet 5 mg PO DAILY RF: 0 doxycycline hyclate 100 mg tablet 100 mg PO BID RF: 0 Referrals / Follow Up: Vivek Brink MD [STAFF PHYSICIAN] - 07/19/21 7:15 am (This appointment will be with Dr. Marrero. ) Dionicio Talley DO [Primary Care Provider] - 06/08/21 1:30 pm Disposition Disposition (needs filled in before D/C Order can be placed): Home, Self Care Charges/Coding Visit Charges Inpatient E&M: 74690 Disch Hosp
--- NOTE | 2021-06-04 14:17 | CASEMGMT ---
RN CM Discharge Follow-up Phone Call: ANDRES: Yasmine Strata: 3 Call Date: 06/04/21 Discharge Date: 06/01/21 Time of Call: 1415 Duration: 1 min Admitting Diagnosis: Dehydration/BELLA RN CM attempted to complete follow-up phone call after recent hospitalization. No answer, voice message left with return contact information.
== END 2021-06-01 14:10 | disposition home or self-care (01) | DRG 683 ==
LOC: ED 13:53 → PCU 15:54
PROVIDERS: Admitting Provider Internal Medicine; Emergency Provider Emergency Medicine; PCP Preventive Medicine Occupational Medicine; Visit Provider Internal Medicine
DX: N17.9 Acute kidney failure, unspecified (principal); Z68.41 Body mass index [BMI] 40.0-44.9, adult; E11.649 Type 2 diabetes mellitus with hypoglycemia without coma; R77.8 Other specified abnormalities of plasma proteins; E86.0 Dehydration; R55 Syncope and collapse; I27.20 Pulmonary hypertension, unspecified; I48.0 Paroxysmal atrial fibrillation; I10 Essential (primary) hypertension; J45.909 Unspecified asthma, uncomplicated; G47.33 Obstructive sleep apnea (adult) (pediatric); E66.01 Morbid (severe) obesity due to excess calories; Z79.82 Long term (current) use of aspirin; Z79.4 Long term (current) use of insulin; Z79.01 Long term (current) use of anticoagulants; Z79.899 Other long term (current) drug therapy; Z87.891 Personal history of nicotine dependence
CPT/HCPCS: 36415; 80048; 81001; 82040; 82962; 84484; 85025; 93005; 93306; 97162; 97530; 99285; J7030; Q9957; A4216; J3490

== ENCOUNTER 2022-04-10 09:00 | Outpatient (RCR) | payer MEDICARE, OTHER, SELFPAY ==
[2022-03-27 09:27] VITALS: BP 136/67; PULSE 80; RESP 16; TEMP 36.1; BMI 44.9
--- NOTE | 2022-03-27 11:14 | PCM.WC.HP ---
History of Present Illness Date of Service: 03/27/22 Chief Complaint: Follow-up on bilateral lower leg ulcers. History of Wound: This is a 66-year-old white male referred by his family doctor for blisters that opened to open sores on his bilateral lower legs. Previous history of the same was seen by Dr. Valadez and did have procedures over a year ago. Patient states he does wear his compression stockings but they are a-year-old, they were fitted through Dr. Valadez bought at [employer]. Patient states the blisters opened and became very open sores one was infected on the left nunes. Patient bought Silvadene cream and put that on it for a while came to us with no slough just an open flat erythematous open wound with no depth. 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 Patient is grossly obese though he still lost over 100 pounds and is currently on a keto diet. Blood sugars and diabetes is well controlled his last A1c was 5.8. Progress of Wound: We will use Xeroform on the wound care to the left nunes area and any other superficial openings most of them are all scabbed and do not require any treatment at this time. We will also use double layer Tubigrip's until he is healed and then he needs to buy new stockings for his lower extremities. [facility] Medical History Asthma Atrial fibrillation BiPAP (biphasic positive airway pressure) dependence Diabetes Former smoker Hernia Hypertension Irregular heart beat Sleep apnea Home Medications aspirin 81 mg PO DAILY@0800 05/05/16 [History Last Taken 05/30/21] lisinopril 5 mg PO QHS 05/05/16 [History Last Taken 05/29/21] tramadol 100 mg PO Q6H PRN PRN 05/06/16 [History Last Taken 05/30/21] Toujeo Max U-300 SoloStar 18 unit SUBCUT DAILY 05/30/21 [History Last Taken 05/30/21] Victoza 3-Maksim 0.6 mg SUBCUT DAILY 05/30/21 [History Last Taken 05/30/21] Xarelto 10 mg PO DAILY 05/30/21 [History Last Taken 05/29/21] ascorbic acid (vitamin C) 1 g PO DAILY 05/30/21 [History Last Taken 05/30/21] cholecalciferol (vitamin D3) 250 mcg PO DAILY 05/30/21 [History Last Taken 05/29/21] ezetimibe 10 mg PO QHS 05/30/21 [History Last Taken 05/29/21] ferrous sulfate 325 mg PO DAILY 05/30/21 [History Last Taken 05/30/21] gabapentin 600 mg PO QHS 05/30/21 [History Last Taken 05/29/21] metformin 500 mg PO BID 05/30/21 [History Last Taken 05/30/21] omeprazole 40 mg PO DAILY 05/30/21 [History Last Taken 05/30/21] sotalol 160 mg PO BID 05/30/21 [History Last Taken 05/30/21] zinc 50 mg PO DAILY 05/30/21 [History Last Taken 05/29/21] furosemide 40 mg PO DAILY PRN PRN #0 tab 06/01/21 [Rx Last Taken 05/30/21] allopurinol 100 mg PO DAILY 03/27/22 [History Last Taken Unknown] coenzyme Q10 [Co Q-10] PO 03/27/22 [History Last Taken Unknown] glipizide 5 mg PO BID 03/27/22 [History Last Taken Unknown] insulin glargine U-300 conc [Toujeo SoloStar U-300 Insulin] 30 unit SUBCUT DAILY 03/27/22 [History Last Taken Unknown] psyllium [Metamucil Sugar Free] 1 tsp PO BID 03/27/22 [History Last Taken Unknown] Allergy/AdvReac Type Severity Reaction Status Date / Time azithromycin [From Zithromax] Allergy Unknown Verified 05/05/16 19:38 codeine Allergy Rash Verified 03/27/22 09:54 Sulfa (Sulfonamide Allergy Unknown Verified 05/05/16 19:38 Antibiotics) Surgical History Hx of tonsillectomy Social History Smoking Status: Former smoker ROS Constitutional Constitutional: Reports systems reviewed and no addt'l complaints, except as documented Eyes Eyes: Reports systems reviewed and no addt'l complaints, except as documented ENT HEENT: Reports systems reviewed and no addt'l complaints, except as documented Cardiovascular Cardiovascular: Reports systems reviewed and no addt'l complaints, except as documented Respiratory/Chest Respiratory/Chest: Reports systems reviewed and no addt'l complaints, except as documented Gastrointestinal Gastrointestinal: Reports systems reviewed and no addt'l complaints, except as documented Genitourinary Genitourinary: Reports systems reviewed and no addt'l complaints, except as documented Musculoskeletal Musculoskeletal: Reports systems reviewed and no addt'l complaints, except as documented Integumentary Integumentary: Reports new lesions, skin pain and wounds Neurologic Neurologic: Reports systems reviewed and no addt'l complaints, except as documented Psychiatric Psychiatric: Reports systems reviewed and no addt'l complaints, except as documented Endocrine Endocrinology: Reports systems reviewed and no addt'l complaints, except as documented Hematologic/Lymphatic Hematologic/Lymphatic: Reports systems reviewed and no addt'l complaints, except as documented Allergic/Immunologic Allergic/Immunologic: Reports systems reviewed and no addt'l complaints, except as documented Vital Signs Vital Signs Vital Signs: 03/27/22 09:27 Temperature 97 F L Temperature Source Temporal Pulse Rate 80 Respiratory Rate 16 Blood Pressure 136/67 H Blood Pressure Mean 90 Blood Pressure Source Monitor Blood Pressure Position Sitting Blood Pressure Location Right Arm Oxygen Delivery Method Room Air Weight Weight: 313 lb Body Mass Index (BMI) 44.9 Physical Exam Const oriented x3 General Appearance: cooperative Exam Limitations: no limitations Resp normal respiratory effort Effort and Inspection: able to speak in complete sentences Auscultation: clear to auscultation bilaterally Cardio regular rate and regular rhythm Palpation: normal PMI Rate: regular rate Rhythm: regular rhythm GI Auscultation: normoactive bowel sounds Palpation: soft and no hepatosplenomegaly external exam normal Back/Spine Cervical Spine: cervical ROM normal Thoracic Spine / Upper Back: normal to inspection Lumbar Spine / Lower Back: normal to inspection Extremity normal to inspection Extremity Narrative: Wounds bilateral lower extremities General Extremity: normal exam except as noted Skin Wounds: wounds noted Wound Narrative: Open wound on left nunes superficial clean no sign of infection. Right lower leg all scabbed healing well Neuro oriented x3 Psych Appearance: grossly normal Speech: normal speech Thought Content: normal thought content Judgement: judgement good Debridement Note Debridement Note Wound debrided: Left lower leg peripheral vascular disease ulcer Type of Debridement: Excisional debridement Anesthesia Used: 5% Lidocaine Gel Depth: Down to and including healthy tissue Percentage of wound debrided: 100 Instrument Used: 3mm curette Tissue Removed: Fibrin Severity: Limited To Skin Breakdown Amount of bleeding with debridement: Mild Bleeding Controlled with: Compression and gauze Patient tolerated procedure: Patient tolerated procedure well Post-Debridement Measurements and Additional Note: Post-Debridement Measurements/Treatment MOHAMUD - Nurse 1 - General Ulcer Assessment Start: 03/27/22 09:00 Freq: Status: Active Protocol: CHRISTOFER Activity Type Activity Date Activity User E-Sign Co-Sign Detail Recorded Client Recorded Date Recorded By Document 03/27/22 09:27 [facility] [id number] 03/27/22 09:51 [facility] 03/27/22 09:27 - Today's Visit Information Type of service Follow-up Visit (Physician/SUPERVISING [employer] ) Arrival Mode Ambulatory Transfer Assistance None Patient Identification Verified (Name & Yes ) Patient Requires Transmission-Based No Precautions Finger Stick Blood Sugar(mg/dl) (if 165 indicated): Blood Sugar Stated by Patient Height and Weight Height 5 ft 10 in Weight 313 lb Weight in Pounds 313.0 lbs Weight Measurement Method Stated by Patient Body Mass Index (BMI) 44.9 BMI Classification Obese BSA - Sasha 2.52 Vital Signs Temperature (97.8 F-99.1 F) 97 F L Temperature Source Temporal Pulse Rate (60-100) 80 Pulse Location Monitor Respiratory Rate (12-18) 16 Respiratory rate source Observation Oxygen Delivery Method Room Air Blood Pressure (90/60-120/80) 136/67 H Blood Pressure Mean 90 Source Monitor Position Sitting Blood Pressure Location Right Arm History Since Last Visit- (Skip if this is Patient's initial visit) Left Footwear Regular Shoe Right Footwear Regular Shoe Pain Scale: 0-10 Numeric Is Patient Pain Free? Yes Lower Extremity Assessment/ Foot Assessment/ Toe Nail Assessment Right -Posterior Tibial Palpable No -Posterior Tibial Doppler Multiphasic -Dorsalis Pedis Palpable No -Dorsalis Pedis Doppler Monophasic -Extremity Color Hyperpigmented -Hair Growth on Legs No -Hair Growth on Toes No -Temperature of Extremity Warm -Other Deformity No -Prior Foot Ulcer No -Charcot Joint No -Prior Amputation No -Thick No -Discolored No -Deformed No -Improper Length & Hygeine No Left -Posterior Tibial Palpable No -Posterior Tibial Doppler Multiphasic -Dorsalis Pedis Doppler Monophasic -Extremity Color Hyperpigmented -Hair Growth on Legs No -Hair Growth on Toes No -Temperature of Extremity Cool -Other Deformity No -Prior Foot Ulcer No -Charcot Joint No -Prior Amputation No -Thick No -Discolored No -Deformed No -Improper Length & Hygeine No Neuropathy Assessment Feet - Top Side and Bottom <Entered> (a) Communication Assessment Preferred language [place] Able to Read Yes Able to Write Yes Communication Tools None Right Hearing Abillity Hard of Hearing ,Use of Hearing Aid Left Hearing Abillity Hard of Hearing ,Use of Hearing Aid Visual Assistive Devices Glasses Teaching Assessment Preferences Verbal,Written, Audio/Visual, Demonstration Barriers to Learning None Readiness To Learn Excellent Willingness to Engage in Self Management High Activies Readiness to Engage in Self Management High Activities Anxiety Level Calm Cooperation Cooperative Perception Coherent Interest in Health Problem Asks Questions Education Importance Acknowledges Need Does Patient Smoke tobacco or other No substances Smoking Status Former smoker Is Patient Diabetic Yes Functional Assessment Recent Decline in Ability to Perform Denies Any Declines 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 Cultural/Nondenominational Needs that may affect No Treatment Plan Teaching: Wound Center *Welcome to the Wound Center -Person Taught Patient -Teaching Method Discussion -Response to teaching Verbalize understanding Welcome to the Wound Care Center [place] (a) 1 - + WC - Nurse 1 - General Ulcer Measurement Start: 03/27/22 09:00 Freq: Status: Active Protocol: Activity Type Activity Date Activity User E-Sign Co-Sign Detail Recorded Client Recorded Date Recorded By Document 03/27/22 09:27 [facility] [id number] 03/27/22 09:51 [facility] 03/27/22 09:27 Wound Center Nurse 1 #3- L MED LE -Combined with other wound No -Current Size (cm) - Length 0.7 -Current Size (cm) - Width 0.4 -Current Size (cm) - Depth 0.1 -Total Square Cm 0.28 -Date of Last Picture (Recall this 03/27/22 field) -Photo Taken Yes -Epithelialization None Present -Tunneling No -Undermining/Tunneling No -Circular Undermining No -Exudate Amt Small -Exudate Type Serous -Wound Margin Distinct, Outline Attached -Granulation Amt Small (1-33%) -Granulation Quality Red -Slough/Fibrin Yes -Necrotic Tissue Type Adherent Slough -Texture (Martha-wound Skin Appearance) Assessed, Scarring -Moisture (Martha-wound Skin Appearance) Assessed,Dry/ Scaly -Color (Martha-wound Skin Appearance) Assessed, Hemosiderin Staining -Temperature (Martha-wound Skin No Abnormality Appearance) (Pt Warm) -Tenderness on Palpation (Martha-wound No Skin Appearance) -Ulcer Cleansing Rinsed/ Irrigated with Saline -Foul Odor after Cleansing No -Anesthetic Used 4% Lidocaine Solution #2- R NUNES -Combined with other wound No -Current Size (cm) - Length 1.3 -Current Size (cm) - Width 0.3 -Current Size (cm) - Depth 0.1 -Total Square Cm 0.39 -Date of Last Picture (Recall this 03/27/22 field) -Photo Taken Yes -Epithelialization None Present -Tunneling No -Undermining/Tunneling No -Circular Undermining No -Exudate Amt None Present -Wound Margin Distinct, Outline Attached -Granulation Amt None Present (0 %) -Slough/Fibrin Yes -Necrosis Amt Large (67-100%) -Necrotic Tissue Type Eschar -Texture (Martha-wound Skin Appearance) Assessed, Scarring -Moisture (Martha-wound Skin Appearance) Assessed -Color (Martha-wound Skin Appearance) Assessed, Hemosiderin Staining -Temperature (Martha-wound Skin No Abnormality Appearance) (Pt Warm) -Tenderness on Palpation (Martha-wound No Skin Appearance) -Ulcer Cleansing Rinsed/ Irrigated with Saline -Foul Odor after Cleansing No -Anesthetic Used 4% Lidocaine Solution #1- L NUNES CLUSTER -Combined with other wound No -Current Size (cm) - Length 3.1 -Current Size (cm) - Width 0.5 -Current Size (cm) - Depth 0.1 -Total Square Cm 1.55 -Date of Last Picture (Recall this 03/27/22 field) -Photo Taken Yes -Epithelialization None Present -Tunneling No -Undermining/Tunneling No -Circular Undermining No -Exudate Amt None Present -Wound Margin Distinct, Outline Attached -Granulation Amt None Present (0 %) -Slough/Fibrin Yes -Necrosis Amt Large (67-100%) -Necrotic Tissue Type Eschar -Texture (Martha-wound Skin Appearance) Assessed, Scarring -Moisture (Martha-wound Skin Appearance) Assessed,Dry/ Scaly -Color (Martha-wound Skin Appearance) Assessed, Hemosiderin Staining -Temperature (Martha-wound Skin No Abnormality Appearance) (Pt Warm) -Tenderness on Palpation (Martha-wound No Skin Appearance) -Ulcer Cleansing Rinsed/ Irrigated with Saline -Foul Odor after Cleansing Yes, Due to Product Use -Anesthetic Used 4% Lidocaine Solution Lower Limb Edema Present Yes Right Calf (cm) 46.2 Right Ankle (cm) 24.4 Left Calf (cm) 43.4 Left Ankle (cm) 23.9 WC - Nurse 2 - General Ulcer CM Notes Start: 03/27/22 09:00 Freq: Status: Active Protocol: Activity Type Activity Date Activity User E-Sign Co-Sign Detail Recorded Client Recorded Date Recorded By Document 03/27/22 10:04 MW [id number] 03/27/22 10:11 MW 03/27/22 10:04 Wound Center Nurse 2 #3- L MED LE -Time 10:05 -Correct Patient Yes -Correct Side, Site, Position Yes -Correct Procedure Yes -Procedure Performed No -Post Debridement (cm) - Length 0.1 -Post Debridement (cm) - Width 0.1 -Post Debridement (cm) - Depth 1 -Total Square (Post) (cm) 0.01 -Tunneling No -Undermining/Tunneling No -Circular Undermining No -Wound/Ulcer Outcome Not Healed -Ulcer Cleansing Rinsed/ Irrigated with Saline -Foul Odor after Cleansing No -Bioengineered Tissue No -Bleeding Controlled with NA #2- R NUNES -Time 10:05 -Correct Patient Yes -Correct Side, Site, Position Yes -Correct Procedure Yes -Procedure Performed Yes -Type of Procedure Debridement -Clinical Debridement Subcutaneous -Tissue Removed Subcutaneous -Post Debridement (cm) - Length 0.9 -Post Debridement (cm) - Width 0.2 -Post Debridement (cm) - Depth 0.1 -Total Square (Post) (cm) 0.18 -Area of Debridement (cm) - Length 0.9 -Area of Debridement (cm) - Width 0.2 -Total Square (Area) (cm) 0.18 -Tunneling No -Undermining/Tunneling No -Circular Undermining No -Wound/Ulcer Outcome Not Healed -Ulcer Cleansing Rinsed/ Irrigated with Saline -Foul Odor after Cleansing No -Bioengineered Tissue No -Bleeding Controlled with Pressure -Treatment Response Procedure Tolerated Well -Offloading No -Debridement - Subq, 1st 20sq cm No #1- L NUNES CLUSTER -Time 10:06 -Correct Patient Yes -Correct Side, Site, Position Yes -Correct Procedure Yes -Procedure Performed Yes -Type of Procedure Debridement -Clinical Debridement Subcutaneous -Tissue Removed Subcutaneous -Post Debridement (cm) - Length 0.7 -Post Debridement (cm) - Width 1.0 -Post Debridement (cm) - Depth 0.1 -Total Square (Post) (cm) 0.70 -Area of Debridement (cm) - Length 0.7 -Area of Debridement (cm) - Width 1.0 -Total Square (Area) (cm) 0.70 -Tunneling No -Undermining/Tunneling No -Circular Undermining No -Wound/Ulcer Outcome Not Healed -Ulcer Cleansing Rinsed/ Irrigated with Saline -Foul Odor after Cleansing No -Bioengineered Tissue No -Bleeding Controlled with Pressure -Treatment Response Procedure Tolerated Well -Offloading No -Debridement - Subq, 1st 20sq cm Yes Pain Scale: 0-10 Numeric Is Patient Pain Free? Yes WC - Nurse 3 - General Ulcer D/C NN Start: 03/27/22 09:00 Freq: Status: Active Protocol: Activity Type Activity Date Activity User E-Sign Co-Sign Detail Recorded Client Recorded Date Recorded By Document 03/27/22 10:36 [facility] [id number] 03/27/22 10:37 [facility] 03/27/22 10:36 Wound Care Nurse 3 #3- L MED LE -Ulcer Cleansing Rinsed/ Irrigated with Saline -Foul Odor after Cleansing No -Primary Dressing Applied NonAdherent Contact Layer -Other Dressing xeroform -Primary Dressing Covered/Secured with Dry Gauze & Roll Gauze, Secured with Tape #2- R NUNES -Ulcer Cleansing Rinsed/ Irrigated with Saline -Foul Odor after Cleansing No -Other Dressing xeroform -Primary Dressing Covered/Secured with Dry Gauze & Roll Gauze, Secured with Tape #1- L NUNES CLUSTER -Ulcer Cleansing Rinsed/ Irrigated with Saline -Foul Odor after Cleansing No -Other Dressing xeroform -Primary Dressing Covered/Secured with Dry Gauze & Roll Gauze, Secured with Tape ble -Tubular Bandage Double Layer -Size of Tubigrip Used Size E -Size E ($) 2 Treatment Response Procedure Tolerated Well Pain Scale: 0-10 Numeric Is Patient Pain Free? Yes WC - Visit Discharge Discharge Condition Stable Ambulatory Status Ambulatory Transportation Private Auto Assessment/Plan Assessment/Plan (1) Peripheral vascular disease of lower extremity with ulceration: CODE(S): I73.9 - Peripheral vascular disease, unspecified; L97.909 - Non-pressure chronic ulcer of unspecified part of unspecified lower leg with unspecified severity PLAN: Wash leg with antibacterial soap apply Xeroform to the left lower leg wound cover with gauze and Aram and Tubigrip every day Follow-up in 1 week (2) Edema, lower extremity: CODE(S): R60.0 - Localized edema PLAN: Double layer Tubigrip's for now over dressings until we can compress his legs down to get him to order new compression stockings to go along with his recent weight loss (3) Diabetes mellitus with multiple complications: CODE(S): E11.8 - Type 2 diabetes mellitus with unspecified complications
[2022-04-10 08:51] VITALS: BMI 44.9
--- NOTE | 2022-04-10 09:21 | PCM.WC.PN ---
History of Present Illness Date of Service: 04/10/22 Chief Complaint: Follow-up on bilateral lower leg ulcers. History of Wound: This is a 66-year-old white male referred by his family doctor for blisters that opened to open sores on his bilateral lower legs. Previous history of the same was seen by Dr. Valadez and did have procedures over a year ago. Patient states he does wear his compression stockings but they are a-year-old, they were fitted through Dr. Valadez bought at [employer]. Patient states the blisters opened and became very open sores one was infected on the left nunes. Patient bought Silvadene cream and put that on it for a while came to us with no slough just an open flat erythematous open wound with no depth. 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 Patient is grossly obese though he still lost over 100 pounds and is currently on a keto diet. Blood sugars and diabetes is well controlled his last A1c was 5.8. Progress of Wound: Bilateral lower legs are healed patient will be discharged from the wound center did very well with using Xeroform Subjective Subjective Patient has no concerns is very pleased with this treatment Objective Data Objective Data As written above patient is healed and will be discharged no concerns Vital Signs: Vital Signs Temp Pulse Resp BP 97 F L 80 16 136/67 H 03/27/22 09:27 03/27/22 09:27 03/27/22 09:27 03/27/22 09:27 Oxygen Delivery Method Room Air Weight: 313 lb Body Mass Index (BMI) 44.9 Physical Exam Const oriented x3 General Appearance: cooperative Exam Limitations: no limitations Resp normal respiratory effort Effort and Inspection: able to speak in complete sentences Auscultation: clear to auscultation bilaterally Cardio regular rate and regular rhythm Palpation: normal PMI Rate: regular rate Rhythm: regular rhythm GI Auscultation: normoactive bowel sounds Palpation: soft and no hepatosplenomegaly external exam normal Back/Spine Cervical Spine: cervical ROM normal Thoracic Spine / Upper Back: normal to inspection Lumbar Spine / Lower Back: normal to inspection Extremity normal to inspection Extremity Narrative: Wounds bilateral lower extremities General Extremity: normal exam except as noted Skin Wounds: wounds noted Wound Narrative: Open wound on left nunes superficial clean no sign of infection. Right lower leg all scabbed healing well Neuro oriented x3 Psych Appearance: grossly normal Speech: normal speech Thought Content: normal thought content Judgement: judgement good Debridement Note Debridement Note No debridement was completed: No debridement was completed today Post-Debridement Measurements and Additional Note: Post-Debridement Measurements/Treatment - Nurse 1 - General Ulcer Assessment Start: 03/27/22 09:00 Freq: Status: Active Protocol: MOHAMUD.LOWEXT Activity Type Activity Date Activity User E-Sign Co-Sign Detail Recorded Client Recorded Date Recorded By Document 03/27/22 09:27 [facility] [id number] 03/27/22 09:51 BM Document 04/10/22 08:51 [place] [id number] 04/10/22 09:02 AK 03/27/22 04/10/22 09:27 08:51 - Today's Visit Information Type of service Follow-up Visit Follow-up Visit (Physician/SIGN LANGUAGE INTERPRETER (Physician/SIGN LANGUAGE INTERPRETER ) ) Arrival Mode Ambulatory Ambulatory Transfer Assistance None Patient Identification Verified (Name & Yes Yes ) Patient Requires Transmission-Based No No Precautions Finger Stick Blood Sugar(mg/dl) (if 165 indicated): Blood Sugar Stated by Patient Height and Weight Height 5 ft 10 in Weight 313 lb Weight in Pounds 313.0 lbs Weight Measurement Method Stated by Patient Body Mass Index (BMI) 44.9 44.9 BMI Classification Obese Obese BSA - Sasha 2.52 Vital Signs Temperature (97.8 F-99.1 F) 97 F L Temperature Source Temporal Pulse Rate (60-100) 80 Pulse Location Monitor Respiratory Rate (12-18) 16 Respiratory rate source Observation Oxygen Delivery Method Room Air Blood Pressure (90/60-120/80) 136/67 H Blood Pressure Mean (mm Hg) 90 Source Monitor Position Sitting Blood Pressure Location Right Arm Have you changed medications since your No last visit? Any new allergies or adverse reactions No Had a fall/change in ADL's that may No increase risk of falls Signs or symptoms of abuse and/or No neglect since last visit Have you been in the hospital since your No last visit? Has dressing in place as prescribed Yes Has compression in place as prescribed N/A Has offloadiing in place as prescribed N/A Experienced any changes in pain level or No management History Since Last Visit- (Skip if this is Patient's initial visit) Left Footwear Regular Shoe Right Footwear Regular Shoe Pain Scale: 0-10 Numeric Is Patient Pain Free? Yes Yes Lower Extremity Assessment/ Foot Assessment/ Toe Nail Assessment Right -Posterior Tibial Palpable No -Posterior Tibial Doppler Multiphasic -Dorsalis Pedis Palpable No -Dorsalis Pedis Doppler Monophasic -Extremity Color Hyperpigmented -Hair Growth on Legs No -Hair Growth on Toes No -Temperature of Extremity Warm -Other Deformity No -Prior Foot Ulcer No -Charcot Joint No -Prior Amputation No -Thick No -Discolored No -Deformed No -Improper Length & Hygeine No Left -Posterior Tibial Palpable No -Posterior Tibial Doppler Multiphasic -Dorsalis Pedis Doppler Monophasic -Extremity Color Hyperpigmented -Hair Growth on Legs No -Hair Growth on Toes No -Temperature of Extremity Cool -Other Deformity No -Prior Foot Ulcer No -Charcot Joint No -Prior Amputation No -Thick No -Discolored No -Deformed No -Improper Length & Hygeine No Neuropathy Assessment Feet - Top Side and Bottom <Entered> (a) Communication Assessment Preferred language Yoruba Able to Read Yes Able to Write Yes Communication Tools None Right Hearing Abillity Hard of Hearing ,Use of Hearing Aid Left Hearing Abillity Hard of Hearing ,Use of Hearing Aid Visual Assistive Devices Glasses Teaching Assessment Preferences Verbal,Written, Audio/Visual, Demonstration Barriers to Learning None Readiness To Learn Excellent Willingness to Engage in Self Management High Activies Readiness to Engage in Self Management High Activities Anxiety Level Calm Cooperation Cooperative Perception Coherent Interest in Health Problem Asks Questions Education Importance Acknowledges Need Does Patient Smoke tobacco or other No substances Smoking Status Former smoker Is Patient Diabetic Yes Functional Assessment Recent Decline in Ability to Perform Denies Any Declines 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 Cultural/Presybeterian Needs that may affect No Treatment Plan Teaching: Wound Center *Welcome to the Wound Center -Person Taught Patient -Teaching Method Discussion -Response to teaching Verbalize understanding Welcome to the Wound Care Center Yoruba (a) 1 - + WC - Nurse 1 - General Ulcer Measurement Start: 03/27/22 09:00 Freq: Status: Active Protocol: Activity Type Activity Date Activity User E-Sign Co-Sign Detail Recorded Client Recorded Date Recorded By Document 03/27/22 09:27 BM [id number] 03/27/22 09:51 BMF Document 04/10/22 08:51 PA [id number] 04/10/22 09:02 AK 03/27/22 04/10/22 09:27 08:51 Wound Center Nurse 1 #3- L MED LE -Combined with other wound No -Current Size (cm) - Length 0.7 -Current Size (cm) - Width 0.4 -Current Size (cm) - Depth 0.1 -Total Square Cm 0.28 -Date of Last Picture (Recall this 03/27/22 field) -Photo Taken Yes -Epithelialization None Present -Tunneling No -Undermining/Tunneling No -Circular Undermining No -Exudate Amt Small -Exudate Type Serous -Wound Margin Distinct, Outline Attached -Granulation Amt Small (1-33%) -Granulation Quality Red -Slough/Fibrin Yes -Necrotic Tissue Type Adherent Slough -Texture (Martha-wound Skin Appearance) Assessed, Scarring -Moisture (Martha-wound Skin Appearance) Assessed,Dry/ Scaly -Color (Martha-wound Skin Appearance) Assessed, Hemosiderin Staining -Temperature (Martha-wound Skin No Abnormality Appearance) (Pt Warm) -Tenderness on Palpation (Martha-wound No Skin Appearance) -Ulcer Cleansing Rinsed/ Irrigated with Saline -Foul Odor after Cleansing No -Anesthetic Used 4% Lidocaine Solution #2- R NUNES -Combined with other wound No No -Current Size (cm) - Length 1.3 0.1 -Current Size (cm) - Width 0.3 0.1 -Current Size (cm) - Depth 0.1 0.1 -Total Square Cm 0.39 0.01 -Date of Last Picture (Recall this 03/27/22 04/10/22 field) -Photo Taken Yes Yes -Epithelialization None Present None Present -Tunneling No No -Undermining/Tunneling No No -Circular Undermining No No -Exudate Amt None Present Small -Wound Margin Distinct, Distinct, Outline Outline Attached Attached -Granulation Amt None Present (0 None Present (0 %) %) -Granulation Quality N/A -Slough/Fibrin Yes No -Necrosis Amt Large (67-100%) -Necrotic Tissue Type Eschar -Structure Exposed N/A -Texture (Martha-wound Skin Appearance) Assessed, No Abnormality, Scarring Assessed -Moisture (Martha-wound Skin Appearance) Assessed No Abnormality, Assessed -Color (Martha-wound Skin Appearance) Assessed, Assessed, Hemosiderin Hemosiderin Staining Staining -Temperature (Martha-wound Skin No Abnormality No Abnormality Appearance) (Pt Warm) (Pt Warm) -Tenderness on Palpation (Martha-wound No No Skin Appearance) -Ulcer Cleansing Rinsed/ Rinsed/ Irrigated with Irrigated with Saline Saline -Foul Odor after Cleansing No No -Anesthetic Used 4% Lidocaine 5% Lidocaine Solution Gel #1- L NUNES CLUSTER -Combined with other wound No No -Current Size (cm) - Length 3.1 0.1 -Current Size (cm) - Width 0.5 0.1 -Current Size (cm) - Depth 0.1 0.1 -Total Square Cm 1.55 0.01 -Date of Last Picture (Recall this 03/27/22 04/10/22 field) -Photo Taken Yes Yes -Epithelialization None Present -Tunneling No No -Undermining/Tunneling No No -Circular Undermining No No -Change in Wound Grade/Stage No -Exudate Amt None Present -Wound Margin Distinct, Outline Attached -Granulation Amt None Present (0 %) -Granulation Quality N/A -Slough/Fibrin Yes No -Necrosis Amt Large (67-100%) None Present (0 %) -Necrotic Tissue Type Eschar -Structure Exposed N/A -Texture (Martha-wound Skin Appearance) Assessed, No Abnormality, Scarring Assessed -Moisture (Martha-wound Skin Appearance) Assessed,Dry/ No Abnormality, Scaly Assessed -Color (Martha-wound Skin Appearance) Assessed, No Abnormality, Hemosiderin Assessed Staining -Temperature (Martha-wound Skin No Abnormality No Abnormality Appearance) (Pt Warm) (Pt Warm) -Tenderness on Palpation (Martha-wound No No Skin Appearance) -Ulcer Cleansing Rinsed/ Rinsed/ Irrigated with Irrigated with Saline Saline -Foul Odor after Cleansing Yes, Due to No Product Use -Anesthetic Used 4% Lidocaine 4% Lidocaine Solution Solution Lower Limb Edema Present Yes Right Calf (cm) 46.2 45 Right Ankle (cm) 24.4 26 Left Calf (cm) 43.4 45 Left Ankle (cm) 23.9 24 WC - Nurse 2 - General Ulcer CM Notes Start: 03/27/22 09:00 Freq: Status: Active Protocol: Activity Type Activity Date Activity User E-Sign Co-Sign Detail Recorded Client Recorded Date Recorded By Document 03/27/22 10:04 MW [id number] 03/27/22 10:11 MW 03/27/22 10:04 Wound Center Nurse 2 #3- L MED LE -Time 10:05 -Correct Patient Yes -Correct Side, Site, Position Yes -Correct Procedure Yes -Procedure Performed No -Post Debridement (cm) - Length 0.1 -Post Debridement (cm) - Width 0.1 -Post Debridement (cm) - Depth 1 -Total Square (Post) (cm) 0.01 -Tunneling No -Undermining/Tunneling No -Circular Undermining No -Wound/Ulcer Outcome Not Healed -Ulcer Cleansing Rinsed/ Irrigated with Saline -Foul Odor after Cleansing No -Bioengineered Tissue No -Bleeding Controlled with NA #2- R NUNES -Time 10:05 -Correct Patient Yes -Correct Side, Site, Position Yes -Correct Procedure Yes -Procedure Performed Yes -Type of Procedure Debridement -Clinical Debridement Subcutaneous -Tissue Removed Subcutaneous -Post Debridement (cm) - Length 0.9 -Post Debridement (cm) - Width 0.2 -Post Debridement (cm) - Depth 0.1 -Total Square (Post) (cm) 0.18 -Area of Debridement (cm) - Length 0.9 -Area of Debridement (cm) - Width 0.2 -Total Square (Area) (cm) 0.18 -Tunneling No -Undermining/Tunneling No -Circular Undermining No -Wound/Ulcer Outcome Not Healed -Ulcer Cleansing Rinsed/ Irrigated with Saline -Foul Odor after Cleansing No -Bioengineered Tissue No -Bleeding Controlled with Pressure -Treatment Response Procedure Tolerated Well -Offloading No -Debridement - Subq, 1st 20sq cm No #1- L NUNES CLUSTER -Time 10:06 -Correct Patient Yes -Correct Side, Site, Position Yes -Correct Procedure Yes -Procedure Performed Yes -Type of Procedure Debridement -Clinical Debridement Subcutaneous -Tissue Removed Subcutaneous -Post Debridement (cm) - Length 0.7 -Post Debridement (cm) - Width 1.0 -Post Debridement (cm) - Depth 0.1 -Total Square (Post) (cm) 0.70 -Area of Debridement (cm) - Length 0.7 -Area of Debridement (cm) - Width 1.0 -Total Square (Area) (cm) 0.70 -Tunneling No -Undermining/Tunneling No -Circular Undermining No -Wound/Ulcer Outcome Not Healed -Ulcer Cleansing Rinsed/ Irrigated with Saline -Foul Odor after Cleansing No -Bioengineered Tissue No -Bleeding Controlled with Pressure -Treatment Response Procedure Tolerated Well -Offloading No -Debridement - Subq, 1st 20sq cm Yes Pain Scale: 0-10 Numeric Is Patient Pain Free? Yes - Nurse 3 - General Ulcer D/C NN Start: 03/27/22 09:00 Freq: Status: Active Protocol: Activity Type Activity Date Activity User E-Sign Co-Sign Detail Recorded Client Recorded Date Recorded By Document 03/27/22 10:36 [facility] [id number] 03/27/22 10:37 [facility] 03/27/22 10:36 Wound Care Nurse 3 #3- L MED LE -Ulcer Cleansing Rinsed/ Irrigated with Saline -Foul Odor after Cleansing No -Primary Dressing Applied NonAdherent Contact Layer -Other Dressing xeroform -Primary Dressing Covered/Secured with Dry Gauze & Roll Gauze, Secured with Tape #2- R NUNES -Ulcer Cleansing Rinsed/ Irrigated with Saline -Foul Odor after Cleansing No -Other Dressing xeroform -Primary Dressing Covered/Secured with Dry Gauze & Roll Gauze, Secured with Tape #1- L NUNES CLUSTER -Ulcer Cleansing Rinsed/ Irrigated with Saline -Foul Odor after Cleansing No -Other Dressing xeroform -Primary Dressing Covered/Secured with Dry Gauze & Roll Gauze, Secured with Tape ble -Tubular Bandage Double Layer -Size of Tubigrip Used Size E -Size E ($) 2 Treatment Response Procedure Tolerated Well Pain Scale: 0-10 Numeric Is Patient Pain Free? Yes - Visit Discharge Discharge Condition Stable Ambulatory Status Ambulatory Transportation Private Auto Assessment/Plan Assessment/Plan (1) Diabetes mellitus with multiple complications: CODE(S): E11.8 - Type 2 diabetes mellitus with unspecified complications PLAN: Continue monitoring blood sugars and keep well controlled (2) Edema, lower extremity: CODE(S): R60.0 - Localized edema PLAN: Continue wearing compression stockings (3) Peripheral vascular disease of lower extremity with ulceration: CODE(S): I73.9 - Peripheral vascular disease, unspecified; L97.909 - Non-pressure chronic ulcer of unspecified part of unspecified lower leg with unspecified severity PLAN: Ulcers are all resolved patient is to follow-up only if as needed. He will be discharged from the wound center
== END 2022-04-10 15:28 | disposition home or self-care (01) ==
LOC: WC 09:00
PROVIDERS: PCP Preventive Medicine Occupational Medicine; Visit Provider Nurse Practitioner
DX: E11.622 Type 2 diabetes mellitus with other skin ulcer (principal); E11.51 Type 2 diabetes mellitus with diabetic peripheral angiopathy without gangrene; L97.821 Non-pressure chronic ulcer of other part of left lower leg limited to breakdown of skin; I48.91 Unspecified atrial fibrillation; Z68.41 Body mass index [BMI] 40.0-44.9, adult; Z79.4 Long term (current) use of insulin; I10 Essential (primary) hypertension; R60.0 Localized edema; J45.909 Unspecified asthma, uncomplicated; G47.30 Sleep apnea, unspecified; E66.9 Obesity, unspecified; Z79.01 Long term (current) use of anticoagulants; Z79.82 Long term (current) use of aspirin; Z87.891 Personal history of nicotine dependence
CPT/HCPCS: 11042; 99203; 99213; G0463

== ENCOUNTER → 2022-07-05 | Outpatient (CLI) | payer MEDICARE, OTHER, SELFPAY ==
[2022-07-05 17:46] LABS: Absolute Lymphocyte Count 1.21 X10^3/uL (0.83-4.51); Basophil# 0.09 X10^3/uL; Basophil% 1.2 % (0-1); Eosinophil# 0.26 X10^3/uL; Eosinophils% 3.6 % (0-5); Hematocrit 41.4 % (40-54); Hemoglobin 13.5 g/dL (13.0-16.5); Lymphocyte # 1.21 X10^3/ul (0.83-4.51); Lymphocyte % 16.7 % (19-41); Mean Corp Hgb Conc 32.6 g/dL (32-36); Mean Corpuscular Hgb 32.2 pg (27.0-32.0); Mean Corpuscular Volume 98.8 fL (80-94); Mean Platelet Vol. 9.9 fl (6.2-12.0); Monocyte# 0.65 X10^3/uL; NRBC Flagged by Analyzer 0 % (0-5); Neutrophil # 4.98 X10^3/uL (2.7-7.7); Neutrophil % 68.8 % (47-70); Platelet Count 210 K/mm3 (150-450); RBC Distribution Width SD 58.4 fl (35.1-43.9); Red Blood Count 4.19 M/mm3 (4.6-6.2); White Blood Count 7.2 K/mm3 (4.4-11.0)
[2022-07-05 17:52] LABS: CRP 9.08 mg/L (0.0-3.0)
[2022-07-05 18:11] LABS: Erythrocyte Sedimentation Rate 22 mm/hr (0-20)
== END | disposition home or self-care (01) ==
LOC: MTLAB 16:13
PROVIDERS: PCP Preventive Medicine Occupational Medicine; Referring Provider Internal Medicine Pulmonary Disease; Visit Provider Internal Medicine Pulmonary Disease
DX: I27.0 Primary pulmonary hypertension (principal); I10 Essential (primary) hypertension; R06.00 Dyspnea, unspecified
CPT/HCPCS: 36415; 85025; 85652; 86140

== ENCOUNTER 2022-08-07 08:30 | Outpatient (RCR) | payer MEDICARE, OTHER, SELFPAY ==
[2022-07-24 08:14] VITALS: BP 154/85; PULSE 70; TEMP 36.1
--- NOTE | 2022-07-24 11:18 | PN.PCM_ITS ---
History of Present Illness Date of Service: 07/24/22 Chief Complaint: Follow-up on bilateral lower leg ulcers. History of Wound: 66-year-old white male with history of peripheral vascular disease and has had openings done by Dr. Valadez in the past. Patient states he has been wearing his compression stockings but developed a huge blister on his left lower leg and on the right lower legs. This time he started using his Xeroform and healed most of all the wounds on the right leg are closed and scabb ed. Left leg is quite large and almost healed but we will continue with Aquacel extra for now and then finish him off with Xeroform. Progress of Wound: Right lower leg has healed. Left lateral lower leg still open but superficial little depth we will start using Aquacel extra on the leg and then probably finish him off with some Xeroform. These will be daily dressings and patient will be able to do them himself. Subjective Subjective Patient has no concerns and is happy with results so far Objective Data Objective Data No sign of infection legs are already started to heal we will continue with the current therapy Vital Signs: Vital Signs Temp Pulse BP 97.0 F L 70 154/85 H 07/24/22 08:14 07/24/22 08:14 07/24/22 08:14 Physical Exam Const oriented x3 General Appearance: cooperative Exam Limitations: no limitations HEENT normocephalic Eyes PERRL Neck full ROM Resp normal respiratory effort Auscultation: clear to auscultation bilaterally Cardio regular rate and regular rhythm Palpation: normal PMI Rate: regular rate Rhythm: regular rhythm GI Auscultation: normoactive bowel sounds Palpation: soft and no hepatosplenomegaly external exam normal Extremity normal to inspection Skin no rashes or lesions noted Skin Narrative: Open blisters on right and left lower extremities. Right lower extremities are healed and scabbed left lower extremity is superficial and rather large. Neuro oriented x3 Psych Appearance: grossly normal Speech: normal speech Thought Content: normal thought content Judgement: judgement good Debridement Note Debridement Note Wound debrided: Left lower extremity nonhealing from peripheral vascular disease Laterality: Left Type of Debridement: Excisional debridement Anesthesia Used: 5% Lidocaine Gel Depth: Down to and including healthy tissue Percentage of wound debrided: 100 Instrument Used: 7mm curette Tissue Removed: Fibrin and some devitalized tissue Severity: Limited To Skin Breakdown Amount of bleeding with debridement: Mild Bleeding Controlled with: Pressure Patient tolerated procedure: Patient tolerated procedure well Post-Debridement Measurements and Additional Note: Post-Debridement Measurements/Treatment - Nurse 1 - General Ulcer Assessment Start: 07/24/22 08:13 Freq: Status: Active Protocol: CH[facility]STOFER Activity Type Activity Date Activity User E-sign Co-sign Detail Recorded Client Recorded Date Recorded By Document 07/24/22 08:14 FERNANDA [id number] 07/24/22 08:25 FERNANDA 07/24/22 08:14 WC - Today's Visit Information Type of service Initial Visit Arrival Mode Ambulatory Patient Identification Verified (Name & Yes ) Vital Signs Temperature (97.8 F-99.1 F) 97.0 F L Temperature Source Temporal Pulse Rate (60-100) 70 Pulse Location Monitor Blood Pressure (90/60-120/80) 154/85 H Blood Pressure Mean (mm Hg) 108 Source Monitor Position Sitting Blood Pressure Location Right Arm History Since Last Visit- (Skip if this is Patient's initial visit) Have you changed medications since your No last visit? Any new allergies or adverse reactions No Had a fall/change in ADL's that may No increase risk of falls Signs or symptoms of abuse and/or No neglect since last visit Have you been in the hospital since your No last visit? Has dressing in place as prescribed Yes Has compression in place as prescribed N/A Has offloadiing in place as prescribed N/A Experienced any changes in pain level or No management Left Footwear Regular Shoe Right Footwear Regular Shoe Pain Scale: 0-10 Numeric Is Patient Pain Free? Yes - Nurse 1 - General Ulcer Measurement Start: 07/24/22 08:13 Freq: Status: Active Protocol: Activity Type Activity Date Activity User E-sign Co-sign Detail Recorded Client Recorded Date Recorded By Document 07/24/22 08:14 FERNANDA [id number] 07/24/22 08:25 FERNANDA 07/24/22 08:14 Wound Center Nurse 1 #6 Right Medial Lower extremity -Current Size (cm) - Length 0.5 -Current Size (cm) - Width 0.2 -Current Size (cm) - Depth 0.1 -Total Square Cm 0.10 -Exudate Amt None Present -Wound Margin Distinct, Outline Attached -Granulation Amt Small (1-33%) -Granulation Quality [place] -Necrosis Amt None Present (0 %) -Texture (Martha-wound Skin Appearance) Assessed, Scarring -Moisture (Martha-wound Skin Appearance) No Abnormality, Assessed -Color (Martha-wound Skin Appearance) No Abnormality, Assessed -Temperature (Martha-wound Skin No Abnormality Appearance) (Pt Warm) -Tenderness on Palpation (Martha-wound No Skin Appearance) -Ulcer Cleansing Rinsed/ Irrigated with Saline -Foul Odor after Cleansing No -Anesthetic Used 5% Lidocaine Gel #5 Right Chávez Cluster -Current Size (cm) - Length 5 -Current Size (cm) - Width 3 -Current Size (cm) - Depth 0.1 -Total Square Cm 15 -Exudate Amt None Present -Wound Margin Distinct, Outline Attached -Granulation Amt Small (1-33%) -Granulation Quality [place] -Necrosis Amt None Present (0 %) -Texture (Martha-wound Skin Appearance) Assessed, Scarring -Moisture (Martha-wound Skin Appearance) No Abnormality, Assessed -Color (Martha-wound Skin Appearance) No Abnormality, Assessed -Temperature (Martha-wound Skin No Abnormality Appearance) (Pt Warm) -Tenderness on Palpation (Martha-wound No Skin Appearance) -Ulcer Cleansing Rinsed/ Irrigated with Saline -Foul Odor after Cleansing No -Anesthetic Used 5% Lidocaine Gel #4 Left Lateral Lower Extremity -Current Size (cm) - Length 6 -Current Size (cm) - Width 3.7 -Current Size (cm) - Depth 0.1 -Total Square Cm 22.2 -Exudate Amt Medium -Exudate Type Serosanguineous -Wound Margin Distinct, Outline Attached -Granulation Amt Medium (34-66%) -Granulation Quality [place] -Necrosis Amt Medium (34-66%) -Necrotic Tissue Type Adherent Slough -Texture (Martha-wound Skin Appearance) Assessed, Scarring -Moisture (Martha-wound Skin Appearance) No Abnormality, Assessed -Color (Martha-wound Skin Appearance) No Abnormality, Assessed -Temperature (Martha-wound Skin No Abnormality Appearance) (Pt Warm) -Tenderness on Palpation (Martha-wound No Skin Appearance) -Ulcer Cleansing Rinsed/ Irrigated with Saline -Foul Odor after Cleansing No -Anesthetic Used 5% Lidocaine Gel Right Calf (cm) 39 Right Ankle (cm) 24 Left Calf (cm) 42.5 Left Ankle (cm) 24.5 WC - Nurse 2 - General Ulcer CM Notes Start: 07/24/22 08:13 Freq: Status: Active Protocol: Activity Type Activity Date Activity User E-sign Co-sign Detail Recorded Client Recorded Date Recorded By Document 07/24/22 08:30 MW [id number] 07/24/22 08:38 MW 07/24/22 08:30 Wound Center Nurse 2 #6 Right Medial Lower extremity -Time 08:31 -Correct Patient Yes -Correct Side, Site, Position Yes -Correct Procedure Yes -Procedure Performed No -Post Debridement (cm) - Length 0.1 -Post Debridement (cm) - Width 0.1 -Post Debridement (cm) - Depth 0.1 -Total Square (Post) (cm) 0.01 -Wound/Ulcer Outcome Not Healed #5 Right Chávez Cluster -Time 08:32 -Correct Patient Yes -Correct Side, Site, Position Yes -Correct Procedure Yes -Procedure Performed No -Post Debridement (cm) - Length 0.1 -Post Debridement (cm) - Width 0.1 -Post Debridement (cm) - Depth 0.1 -Total Square (Post) (cm) 0.01 -Wound/Ulcer Outcome Not Healed #4 Left Lateral Lower Extremity -Time 08:33 -Correct Patient Yes -Correct Side, Site, Position Yes -Correct Procedure Yes -Procedure Performed Yes -Type of Procedure Debridement -Clinical Debridement Subcutaneous -Tissue Removed Subcutaneous -Post Debridement (cm) - Length 6.0 -Post Debridement (cm) - Width 2.5 -Post Debridement (cm) - Depth 0.1 -Total Square (Post) (cm) 15.00 -Area of Debridement (cm) - Length 6.0 -Area of Debridement (cm) - Width 2.5 -Total Square (Area) (cm) 15.00 -Tunneling No -Undermining/Tunneling No -Circular Undermining No -Wound/Ulcer Outcome Not Healed -Ulcer Cleansing Rinsed/ Irrigated with Saline -Foul Odor after Cleansing No -Bioengineered Tissue No -Bleeding Controlled with Pressure -Treatment Response Procedure Tolerated Well -Offloading No -Debridement - Subq, 1st 20sq cm Yes Pain Scale: 0-10 Numeric Is Patient Pain Free? Yes Assessment/Plan Assessment/Plan (1) Diabetes mellitus with multiple complications: CODE(S): E11.8 - Type 2 diabetes mellitus with unspecified complications (2) Edema, lower extremity: CODE(S): R60.0 - Localized edema (3) Peripheral vascular disease of lower extremity with ulceration: CODE(S): I73.9 - Peripheral vascular disease, unspecified; L97.909 - Non- pressure chronic ulcer of unspecified part of unspecified lower leg with unspecified severity PLAN: Wash left lower leg with antibacterial soap and apply Aquacel extra to wound base cover with Adaptic and gauze Aram. Then apply double layer Tubigrip to left leg This is a daily dressing Follow-up in 1 week
[2022-07-31 08:32] VITALS: BP 130/59; PULSE 73; RESP 20; TEMP 36.3
--- NOTE | 2022-07-31 12:09 | PN.PCM_ITS ---
History of Present Illness Date of Service: 07/31/22 Chief Complaint: Follow-up on bilateral lower leg ulcers. History of Wound: 66-year-old white male with history of peripheral vascular disease and has had openings done by Dr. Valadez in the past. Patient states he has been wearing his compression stockings but developed a huge blister on his left lower leg and on the right lower legs. This time he started using his Xeroform and healed most of all the wounds on the right leg are closed and scabb ed. Left leg is quite large and almost healed but we will continue with Aquacel extra for now and then finish him off with Xeroform. Progress of Wound: Right lower leg has healed. Left lateral lower leg still open but superficial little depth we will start using Aquacel extra on the leg and then probably finish him off with some Xeroform. These will be daily dressings and patient will be able to do them himself. Subjective Subjective Patient is happy with outcomes Objective Data Objective Data No sign of infection healing well measurements are smaller we will continue with the Aquacel extra for this week. Vital Signs: Vital Signs Temp Pulse Resp BP 97.4 F L 73 20 H 130/59 H 07/31/22 08:32 07/31/22 08:32 07/31/22 08:32 07/31/22 08:32 Physical Exam Const oriented x3 General Appearance: cooperative Exam Limitations: no limitations HEENT normocephalic Eyes PERRL Neck full ROM Resp normal respiratory effort Auscultation: clear to auscultation bilaterally Cardio regular rate and regular rhythm Palpation: normal PMI Rate: regular rate Rhythm: regular rhythm GI Auscultation: normoactive bowel sounds Palpation: soft and no hepatosplenomegaly external exam normal Extremity normal to inspection Skin no rashes or lesions noted Skin Narrative: Open blisters on right and left lower extremities. Right lower extremities are healed and scabbed left lower extremity is superficial and rather large. Neuro oriented x3 Psych Appearance: grossly normal Speech: normal speech Thought Content: normal thought content Judgement: judgement good Debridement Note Debridement Note Wound debrided: Left lower leg cluster Laterality: Left Anesthesia Used: 5% Lidocaine Gel Depth: in the subcutaneous layer Percentage of wound debrided: 100 Instrument Used: 7mm curette Tissue Removed: Fibrin Severity: Limited To Skin Breakdown Amount of bleeding with debridement: Mild Bleeding Controlled with: Compression and gauze Patient tolerated procedure: Patient tolerated procedure well Post-Debridement Measurements and Additional Note: Post-Debridement Measurements/Treatment WC - Nurse 1 - General Ulcer Assessment Start: 07/24/22 08:13 Freq: Status: Active Protocol: [facility] Activity Type Activity Date Activity User E-sign Co-sign Detail Recorded Client Recorded Date Recorded By Document 07/24/22 08:14 KR [id number] 07/24/22 08:25 KR Document 07/31/22 08:32 DL [id number] 07/31/22 08:38 DL 07/24/22 07/31/22 08:14 08:32 WC - Today's Visit Information Type of service Initial Visit 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 ) Arrival Mode Ambulatory Ambulatory Transfer Assistance None Patient Identification Verified (Name & Yes Yes ) Finger Stick Blood Sugar(mg/dl) (if 121 indicated): Blood Sugar Stated by Patient Vital Signs Temperature (97.8 F-99.1 F) 97.0 F L 97.4 F L Temperature Source Temporal Temporal Pulse Rate (60-100) 70 73 Pulse Location Monitor Monitor Respiratory Rate (12-18) 20 H Respiratory rate source Observation Blood Pressure (90/60-120/80) 154/85 H 130/59 H Blood Pressure Mean (mm Hg) 108 82 Source Monitor Monitor Position Sitting Blood Pressure Location Right Arm History Since Last Visit- (Skip if this is Patient's initial visit) Have you changed medications since your No No last visit? Any new allergies or adverse reactions No No Had a fall/change in ADL's that may No No increase risk of falls Signs or symptoms of abuse and/or No No neglect since last visit Have you been in the hospital since your No No last visit? Has dressing in place as prescribed Yes Yes Has compression in place as prescribed N/A No Has offloadiing in place as prescribed N/A N/A Experienced any changes in pain level or No No management Left Footwear Regular Shoe Regular Shoe Right Footwear Regular Shoe Regular Shoe Pain Scale: 0-10 Numeric Is Patient Pain Free? Yes Yes MOHAMUD [place] Nurse 1 - General Ulcer Measurement Start: 07/24/22 08:13 Freq: Status: Active Protocol: Activity Type Activity Date Activity User E-sign Co-sign Detail Recorded Client Recorded Date Recorded By Document 07/24/22 08:14 KR [id number] 07/24/22 08:25 KR Document 07/31/22 08:32 DL [id number] 07/31/22 08:38 DL 07/24/22 07/31/22 08:14 08:32 Wound Center Nurse 1 #6 Right Medial Lower extremity -Current Size (cm) - Length 0.5 0.4 -Current Size (cm) - Width 0.2 0.3 -Current Size (cm) - Depth 0.1 0.1 -Total Square Cm 0.10 0.12 -Photo Taken Yes -Exudate Amt None Present None Present -Wound Margin Distinct, Distinct, Outline Outline Attached Attached -Granulation Amt Small (1-33%) Small (1-33%) -Granulation Quality [place] -Necrosis Amt None Present (0 None Present (0 %) %) -Structure Exposed N/A -Texture (Martha-wound Skin Appearance) Assessed, Scarring Scarring -Moisture (Martha-wound Skin Appearance) No Abnormality, Assessed -Color (Martha-wound Skin Appearance) No Abnormality, Hemosiderin Assessed Staining -Temperature (Martha-wound Skin No Abnormality No Abnormality Appearance) (Pt Warm) (Pt Warm) -Tenderness on Palpation (Martha-wound No Skin Appearance) -Ulcer Cleansing Rinsed/ Rinsed/ Irrigated with Irrigated with Saline Saline -Foul Odor after Cleansing No No -Anesthetic Used 5% Lidocaine 4% Lidocaine Gel Solution #5 Right Chávez Cluster -Current Size (cm) - Length 5 0.1 -Current Size (cm) - Width 3 0.1 -Current Size (cm) - Depth 0.1 0.1 -Total Square Cm 15 0.01 -Photo Taken Yes -Exudate Amt None Present None Present -Wound Margin Distinct, Distinct, Outline Outline Attached Attached -Granulation Amt Small (1-33%) None Present (0 %) -Granulation Quality [place] -Necrosis Amt None Present (0 None Present (0 %) %) -Structure Exposed N/A -Texture (Martha-wound Skin Appearance) Assessed, Scarring Scarring -Moisture (Martha-wound Skin Appearance) No Abnormality, No Abnormality Assessed -Color (Martha-wound Skin Appearance) No Abnormality, Hemosiderin Assessed Staining -Temperature (Martha-wound Skin No Abnormality No Abnormality Appearance) (Pt Warm) (Pt Warm) -Tenderness on Palpation (Martha-wound No Skin Appearance) -Ulcer Cleansing Rinsed/ Rinsed/ Irrigated with Irrigated with Saline Saline -Foul Odor after Cleansing No No -Anesthetic Used 5% Lidocaine 4% Lidocaine Gel Solution #4 Left Lateral Lower Extremity -Combined with (Name of Wound-Exactly 4.1 as it is documented) -Current Size (cm) - Length 6 3 -Current Size (cm) - Width 3.7 0.1 -Current Size (cm) - Depth 0.1 -Total Square Cm 22.2 0.3 -Photo Taken Yes -Exudate Amt Medium Small -Exudate Type Serosanguineous Serosanguineous -Wound Margin Distinct, Distinct, Outline Outline Attached Attached -Granulation Amt Medium (34-66%) Large (67-100%) -Granulation Quality [place] -Necrosis Amt Medium (34-66%) None Present (0 %) -Necrotic Tissue Type Adherent Slough -Structure Exposed Fat Layer Exposed -Texture (Martha-wound Skin Appearance) Assessed, Scarring Scarring -Moisture (Martha-wound Skin Appearance) No Abnormality, No Abnormality Assessed -Color (Martha-wound Skin Appearance) No Abnormality, Hemosiderin Assessed Staining -Temperature (Martha-wound Skin No Abnormality No Abnormality Appearance) (Pt Warm) (Pt Warm) -Tenderness on Palpation (Martha-wound No No Skin Appearance) -Ulcer Cleansing Rinsed/ Rinsed/ Irrigated with Irrigated with Saline Saline -Foul Odor after Cleansing No No -Anesthetic Used 5% Lidocaine 4% Lidocaine Gel Solution Right Calf (cm) 39 46.4 Right Ankle (cm) 24 24.9 Left Calf (cm) 42.5 45 Left Ankle (cm) 24.5 23 - Nurse 2 - General Ulcer CM Notes Start: 07/24/22 08:13 Freq: Status: Active Protocol: Activity Type Activity Date Activity User E-sign Co-sign Detail Recorded Client Recorded Date Recorded By Document 07/24/22 08:30 MW [id number] 07/24/22 08:38 MW Document 07/31/22 08:56 MW [id number] 07/31/22 09:01 MW 07/24/22 07/31/22 08:30 08:56 Wound Center Nurse 2 #6 Right Medial Lower extremity -Time 08:31 08:57 -Correct Patient Yes Yes -Correct Side, Site, Position Yes Yes -Correct Procedure Yes Yes -Procedure Performed No No -Post Debridement (cm) - Length 0.1 0 -Post Debridement (cm) - Width 0.1 0 -Post Debridement (cm) - Depth 0.1 0 -Total Square (Post) (cm) 0.01 0 -Wound/Ulcer Outcome Not Healed Healed- Epithelialized #5 Right Chávez Cluster -Time 08:32 08:57 -Correct Patient Yes Yes -Correct Side, Site, Position Yes Yes -Correct Procedure Yes Yes -Procedure Performed No No -Post Debridement (cm) - Length 0.1 0 -Post Debridement (cm) - Width 0.1 0 -Post Debridement (cm) - Depth 0.1 -Total Square (Post) (cm) 0.01 0 -Wound/Ulcer Outcome Not Healed Healed- Epithelialized #4 Left Lateral Lower Extremity -Time 08:33 08:57 -Correct Patient Yes Yes -Correct Side, Site, Position Yes Yes -Correct Procedure Yes Yes -Procedure Performed Yes Yes -Type of Procedure Debridement Debridement -Clinical Debridement Subcutaneous Subcutaneous -Tissue Removed Subcutaneous Subcutaneous -Post Debridement (cm) - Length 6.0 4.3 -Post Debridement (cm) - Width 2.5 3.2 -Post Debridement (cm) - Depth 0.1 0.1 -Total Square (Post) (cm) 15.00 13.76 -Area of Debridement (cm) - Length 6.0 4.3 -Area of Debridement (cm) - Width 2.5 3.2 -Total Square (Area) (cm) 15.00 13.76 -Tunneling No No -Undermining/Tunneling No No -Circular Undermining No No -Wound/Ulcer Outcome Not Healed Not Healed -Ulcer Cleansing Rinsed/ Rinsed/ Irrigated with Irrigated with Saline Saline -Foul Odor after Cleansing No No -Bioengineered Tissue No No -Bleeding Controlled with Pressure Pressure -Treatment Response Procedure Procedure Tolerated Well Tolerated Well -Offloading No No -Debridement - Subq, 1st 20sq cm Yes Yes Pain Scale: 0-10 Numeric Is Patient Pain Free? Yes Yes WC - Nurse 3 - General Ulcer D/C NN Start: 07/24/22 08:13 Freq: Status: Active Protocol: Activity Type Activity Date Activity User E-sign Co-sign Detail Recorded Client Recorded Date Recorded By Document 07/31/22 09:12 [facility] [id number] 07/31/22 09:12 [facility] 07/31/22 09:12 Wound Care Nurse 3 #4 Left Lateral Lower Extremity -Ulcer Cleansing Rinsed/ Irrigated with Saline -Foul Odor after Cleansing No -Primary Dressing Applied Aquacel Extra -Primary Dressing Covered/Secured with Dry Gauze, Secured with Tape -Aquacel Extra 1 BLE -Tubular Bandage Double Layer -Size of Tubigrip Used Size E -Size E ($) 2 Treatment Response Procedure Tolerated Well Pain Scale: 0-10 Numeric Is Patient Pain Free? Yes WC - Visit Discharge Discharge Condition Stable Ambulatory Status Ambulatory Transportation Private Auto Assessment/Plan Assessment/Plan (1) Diabetes mellitus with multiple complications: CODE(S): E11.8 - Type 2 diabetes mellitus with unspecified complications (2) Edema, lower extremity: CODE(S): R60.0 - Localized edema (3) Peripheral vascular disease of lower extremity with ulceration: CODE(S): I73.9 - Peripheral vascular disease, unspecified; L97.909 - Non- pressure chronic ulcer of unspecified part of unspecified lower leg with unspecified severity PLAN: Wash left lower leg with antibacterial soap and apply Aquacel extra to wound base cover with Adaptic and gauze Aram. Then apply double layer Tubigrip to left leg This is a daily dressing Follow-up in 1 week
[2022-08-07 08:12] VITALS: BP 162/87; PULSE 87; TEMP 35.3
--- NOTE | 2022-08-07 09:41 | PN.PCM_ITS ---
History of Present Illness Date of Service: 08/07/22 Chief Complaint: Follow-up on bilateral lower leg ulcers. History of Wound: 66-year-old white male with history of peripheral vascular disease and has had openings done by Dr. Valadez in the past. Patient states he has been wearing his compression stockings but developed a huge blister on his left lower leg and on the right lower legs. This time he started using his Xeroform and healed most of all the wounds on the right leg are closed and scabb ed. Left leg is quite large and almost healed but we will continue with Aquacel extra for now and then finish him off with Xeroform. Progress of Wound: Right lower leg reopened another area. Left lateral lower leg still open but superficial little depth we will start using Aquacel extra on the leg and then probably finish him off with some Xeroform. These will be daily dressings and patient will be able to do them himself. Wound sizes are definitely smaller we will flip him over to Xeroform this week with Aquacel over top. I suggested he follow-up again with Dr. Valadez for his reopening's of sores he looks a little inflamed we will get cultures on him this week. We did obtain cultures of the areas Subjective Subjective Patient is agreement of plan will be out of town next week for a seminar. Discussed with patient that he is to walk around and stand every hour and not just sit all day. Also needs to wear his stockinettes all the time. Objective Data Objective Data Vital Signs: Vital Signs Temp Pulse Resp BP 95.5 F L 87 20 H 162/87 H 08/07/22 08:12 08/07/22 08:12 07/31/22 08:32 08/07/22 08:12 Physical Exam Const oriented x3 General Appearance: cooperative Exam Limitations: no limitations HEENT normocephalic Eyes PERRL Neck full ROM Resp normal respiratory effort Auscultation: clear to auscultation bilaterally Cardio regular rate and regular rhythm Palpation: normal PMI Rate: regular rate Rhythm: regular rhythm GI Auscultation: normoactive bowel sounds Palpation: soft and no hepatosplenomegaly external exam normal Extremity normal to inspection Skin no rashes or lesions noted Skin Narrative: Open blisters on right and left lower extremities. Right lower extremities are healed and scabbed left lower extremity is superficial and rather large. Neuro oriented x3 Psych Appearance: grossly normal Speech: normal speech Thought Content: normal thought content Judgement: judgement good Debridement Note Debridement Note Wound debrided: Right lower leg peripheral vascular opening Laterality: Right Type of Debridement: Excisional debridement Anesthesia Used: 5% Lidocaine Gel Depth: Down to and including healthy tissue Percentage of wound debrided: 100 Instrument Used: 7mm curette Tissue Removed: Fibrin Severity: Limited To Skin Breakdown Amount of bleeding with debridement: Mild Bleeding Controlled with: Pressure Patient tolerated procedure: Patient tolerated procedure well Post-Debridement Measurements and Additional Note: Post-Debridement Measurements/Treatment - Nurse 1 - General Ulcer Assessment Start: 07/24/22 08:13 Freq: Status: Active Protocol: [facility] Activity Type Activity Date Activity User E-sign Co-sign Detail Recorded Client Recorded Date Recorded By Document 07/24/22 08:14 KR [id number] 07/24/22 08:25 KR Document 07/31/22 08:32 DL [id number] 07/31/22 08:38 DL Document 08/07/22 08:12 AK [id number] 08/07/22 08:20 AK 07/24/22 07/31/22 08/07/22 08:14 08:32 08:12 - Today's Visit Information Type of service Initial Visit Follow-up Visit Follow-up Visit (Physician/[facility]EW[facility] ANALYST LAB ANALYST (Physician/WASTEWATER ANALYST LAB ANALYST ) ) Arrival Mode Ambulatory Ambulatory Ambulatory Transfer Assistance None Patient Identification Verified (Name & Yes Yes Yes ) Patient Requires Transmission-Based No Precautions Safety Precautions NA Finger Stick Blood Sugar(mg/dl) (if 121 116 indicated): Blood Sugar Stated by Stated by Patient Patient Vital Signs Temperature (97.8 F-99.1 F) 97.0 F L 97.4 F L 95.5 F L Temperature Source Temporal Temporal Temporal Pulse Rate (60-100) 70 73 87 Pulse Location Monitor Monitor Monitor Respiratory Rate (12-18) 20 H Respiratory rate source Observation Blood Pressure (90/60-120/80) 154/85 H 130/59 H 162/87 H Blood Pressure Mean (mm Hg) 108 82 112 Source Monitor Monitor Monitor Position Sitting Blood Pressure Location Right Arm History Since Last Visit- (Skip if this is Patient's initial visit) Have you changed medications since your No No No last visit? Any new allergies or adverse reactions No No No Had a fall/change in ADL's that may No No No increase risk of falls Signs or symptoms of abuse and/or No No No neglect since last visit Have you been in the hospital since your No No No last visit? Has dressing in place as prescribed Yes Yes Yes Has compression in place as prescribed N/A No Yes Has offloadiing in place as prescribed N/A N/A N/A Experienced any changes in pain level or No No No management Left Footwear Regular Shoe Regular Shoe Regular Shoe Right Footwear Regular Shoe Regular Shoe Regular Shoe Pain Scale: 0-10 Numeric Is Patient Pain Free? Yes Yes Yes WC - Nurse 1 - General Ulcer Measurement Start: 07/24/22 08:13 Freq: Status: Active Protocol: Activity Type Activity Date Activity User E-sign Co-sign Detail Recorded Client Recorded Date Recorded By Document 07/24/22 08:14 KR [id number] 07/24/22 08:25 KR Document 07/31/22 08:32 DL [id number] 07/31/22 08:38 DL Document 08/07/22 08:12 AK [id number] 08/07/22 08:20 AK 07/24/22 07/31/22 08/07/22 08:14 08:32 08:12 Wound Center Nurse 1 #5 Right Chávez Cluster -Current Size (cm) - Length 5 0.1 -Current Size (cm) - Width 3 0.1 -Current Size (cm) - Depth 0.1 0.1 -Total Square Cm 15 0.01 -Photo Taken Yes -Exudate Amt None Present None Present -Wound Margin Distinct, Distinct, Outline Outline Attached Attached -Granulation Amt Small (1-33%) None Present (0 %) -Granulation Quality Makanda Makanda -Necrosis Amt None Present (0 None Present (0 %) %) -Structure Exposed N/A -Texture (Martha-wound Skin Appearance) Assessed, Scarring Scarring -Moisture (Martha-wound Skin Appearance) No Abnormality, No Abnormality Assessed -Color (Martha-wound Skin Appearance) No Abnormality, Hemosiderin Assessed Staining -Temperature (Martha-wound Skin No Abnormality No Abnormality Appearance) (Pt Warm) (Pt Warm) -Tenderness on Palpation (Martha-wound No Skin Appearance) -Ulcer Cleansing Rinsed/ Rinsed/ Irrigated with Irrigated with Saline Saline -Foul Odor after Cleansing No No -Anesthetic Used 5% Lidocaine 4% Lidocaine Gel Solution #6 Right Medial Lower extremity -Combined with other wound No -Current Size (cm) - Length 0.5 0.4 1.4 -Current Size (cm) - Width 0.2 0.3 1 -Current Size (cm) - Depth 0.1 0.1 0.1 -Total Square Cm 0.10 0.12 1.4 -Date of Last Picture (Recall this 08/07/22 field) -Photo Taken Yes Yes -Tunneling No -Undermining/Tunneling No -Circular Undermining No -Change in Wound Grade/Stage No -Exudate Amt None Present None Present Medium -Exudate Type Serosanguineous -Wound Margin Distinct, Distinct, Distinct, Outline Outline Outline Attached Attached Attached -Granulation Amt Small (1-33%) Small (1-33%) Medium (34-66%) -Granulation Quality Makanda Makanda Makanda -Slough/Fibrin Yes -Necrosis Amt None Present (0 None Present (0 Small (1-33%) %) %) -Necrotic Tissue Type Adherent Slough -Structure Exposed N/A N/A -Texture (Martha-wound Skin Appearance) Assessed, Scarring No Abnormality, Scarring Assessed -Moisture (Martha-wound Skin Appearance) No Abnormality, No Abnormality, Assessed Assessed -Color (Martha-wound Skin Appearance) No Abnormality, Hemosiderin No Abnormality, Assessed Staining Assessed -Temperature (Martha-wound Skin No Abnormality No Abnormality No Abnormality Appearance) (Pt Warm) (Pt Warm) (Pt Warm) -Tenderness on Palpation (Martha-wound No No Skin Appearance) -Ulcer Cleansing Rinsed/ Rinsed/ Rinsed/ Irrigated with Irrigated with Irrigated with Saline Saline Saline -Foul Odor after Cleansing No No No -Anesthetic Used 5% Lidocaine 4% Lidocaine 5% Lidocaine Gel Solution Gel #4 Left Lateral Lower Extremity -Combined with other wound No -Combined with (Name of Wound-Exactly 4.1 as it is documented) -Current Size (cm) - Length 6 3 3.8 -Current Size (cm) - Width 3.7 0.1 1.5 -Current Size (cm) - Depth 0.1 0.1 -Total Square Cm 22.2 0.3 5.70 -Date of Last Picture (Recall this 08/07/22 field) -Photo Taken Yes Yes -Tunneling No -Undermining/Tunneling No -Circular Undermining No -Change in Wound Grade/Stage No -Exudate Amt Medium Small Medium -Exudate Type Serosanguineous Serosanguineous Serosanguineous -Wound Margin Distinct, Distinct, Distinct, Outline Outline Outline Attached Attached Attached -Granulation Amt Medium (34-66%) Large (67-100%) Large (67-100%) -Granulation Quality Makanda Makanda,Red Makanda -Slough/Fibrin Yes -Necrosis Amt Medium (34-66%) None Present (0 Small (1-33%) %) -Necrotic Tissue Type Adherent Slough Adherent Slough -Structure Exposed Fat Layer N/A Exposed -Texture (Martha-wound Skin Appearance) Assessed, Scarring No Abnormality, Scarring Assessed -Moisture (Martha-wound Skin Appearance) No Abnormality, No Abnormality Assessed, Assessed Maceration -Color (Martha-wound Skin Appearance) No Abnormality, Hemosiderin No Abnormality, Assessed Staining Assessed -Temperature (Martha-wound Skin No Abnormality No Abnormality No Abnormality Appearance) (Pt Warm) (Pt Warm) (Pt Warm) -Tenderness on Palpation (Martha-wound No No No Skin Appearance) -Ulcer Cleansing Rinsed/ Rinsed/ Rinsed/ Irrigated with Irrigated with Irrigated with Saline Saline Saline -Foul Odor after Cleansing No No No -Anesthetic Used 5% Lidocaine 4% Lidocaine 5% Lidocaine Gel Solution Gel Right Calf (cm) 39 46.4 46.2 Right Ankle (cm) 24 24.9 25.2 Left Calf (cm) 42.5 45 44.5 Left Ankle (cm) 24.5 23 24.1 WC - Nurse 2 - General Ulcer CM Notes Start: 07/24/22 08:13 Freq: Status: Active Protocol: Activity Type Activity Date Activity User E-sign Co-sign Detail Recorded Client Recorded Date Recorded By Document 07/24/22 08:30 MW [id number] 07/24/22 08:38 MW Document 07/31/22 08:56 MW [id number] 07/31/22 09:01 MW Document 08/07/22 08:56 MW Desktop 08/07/22 09:02 MW 07/24/22 07/31/22 08/07/22 08:30 08:56 08:56 Wound Center Nurse 2 #5 Right Chávez Cluster -Time 08:32 08:57 -Correct Patient Yes Yes -Correct Side, Site, Position Yes Yes -Correct Procedure Yes Yes -Procedure Performed No No -Post Debridement (cm) - Length 0.1 0 -Post Debridement (cm) - Width 0.1 0 -Post Debridement (cm) - Depth 0.1 -Total Square (Post) (cm) 0.01 0 -Wound/Ulcer Outcome Not Healed Healed- Epithelialized #6 Right Medial Lower extremity -Time 08:31 08:57 08:58 -Correct Patient Yes Yes Yes -Correct Side, Site, Position Yes Yes Yes -Correct Procedure Yes Yes Yes -Procedure Performed No No Yes -Type of Procedure Debridement -Clinical Debridement Subcutaneous -Tissue Removed Subcutaneous -Post Debridement (cm) - Length 0.1 0 1.7 -Post Debridement (cm) - Width 0.1 0 0.8 -Post Debridement (cm) - Depth 0.1 0 0.1 -Total Square (Post) (cm) 0.01 0 1.36 -Area of Debridement (cm) - Length 1.7 -Area of Debridement (cm) - Width 0.8 -Total Square (Area) (cm) 1.36 -Tunneling No -Undermining/Tunneling No -Circular Undermining No -Wound/Ulcer Outcome Not Healed Healed- Not Healed Epithelialized -Ulcer Cleansing Rinsed/ Irrigated with Saline -Foul Odor after Cleansing No -Bioengineered Tissue No -Bleeding Controlled with Pressure -Treatment Response Procedure Tolerated Well -Offloading No -Debridement - Subq, 1st 20sq cm Yes #4 Left Lateral Lower Extremity -Time 08:33 08:57 09:01 -Correct Patient Yes Yes Yes -Correct Side, Site, Position Yes Yes Yes -Correct Procedure Yes Yes Yes -Procedure Performed Yes Yes Yes -Type of Procedure Debridement Debridement Debridement -Clinical Debridement Subcutaneous Subcutaneous Subcutaneous -Tissue Removed Subcutaneous Subcutaneous Subcutaneous -Post Debridement (cm) - Length 6.0 4.3 3.8 -Post Debridement (cm) - Width 2.5 3.2 1.2 -Post Debridement (cm) - Depth 0.1 0.1 0.1 -Total Square (Post) (cm) 15.00 13.76 4.56 -Area of Debridement (cm) - Length 6.0 4.3 3.8 -Area of Debridement (cm) - Width 2.5 3.2 1.2 -Total Square (Area) (cm) 15.00 13.76 4.56 -Tunneling No No No -Undermining/Tunneling No No No -Circular Undermining No No No -Wound/Ulcer Outcome Not Healed Not Healed Not Healed -Ulcer Cleansing Rinsed/ Rinsed/ Rinsed/ Irrigated with Irrigated with Irrigated with Saline Saline Saline -Foul Odor after Cleansing No No No -Bioengineered Tissue No No No -Bleeding Controlled with Pressure Pressure Pressure -Treatment Response Procedure Procedure Procedure Tolerated Well Tolerated Well Tolerated Well -Offloading No No No -Debridement - Subq, 1st 20sq cm Yes Yes No Pain Scale: 0-10 Numeric Is Patient Pain Free? Yes Yes Yes - Nurse 3 - General Ulcer D/C NN Start: 07/24/22 08:13 Freq: Status: Active Protocol: Activity Type Activity Date Activity User E-sign Co-sign Detail Recorded Client Recorded Date Recorded By Document 07/31/22 09:12 [facility] [id number] 07/31/22 09:12 [facility] Document 08/07/22 09:15 [facility] [id number] 08/07/22 09:16 [facility] 07/31/22 08/07/22 09:12 09:15 Wound Care Nurse 3 #6 Right Medial Lower extremity -Ulcer Cleansing Rinsed/ Irrigated with Saline -Foul Odor after Cleansing No -Primary Dressing Applied NonAdherent Contact Layer -Primary Dressing Covered/Secured with Dry Gauze, Secured with Tape #4 Left Lateral Lower Extremity -Ulcer Cleansing Rinsed/ Rinsed/ Irrigated with Irrigated with Saline Saline -Foul Odor after Cleansing No No -Primary Dressing Applied Aquacel Extra NonAdherent Contact Layer -Primary Dressing Covered/Secured with Dry Gauze, Dry Gauze, Secured with Secured with Tape Tape -Aquacel Extra 1 BLE -Tubular Bandage Double Layer Double Layer -Size of Tubigrip Used Size E Size E -Size E ($) 2 2 Treatment Response Procedure Procedure Tolerated Well Tolerated Well Pain Scale: 0-10 Numeric Is Patient Pain Free? Yes Yes - Visit Discharge Discharge Condition Stable Stable Ambulatory Status Ambulatory Ambulatory Transportation Private Auto Private Auto Additional Wound Wound debrided: Left lateral lower leg peripheral vascular ulcer Laterality: Left Type of Debridement: Excisional debridement Anesthesia Used: 5% Lidocaine Gel Depth: Down to and including healthy tissue Percentage of wound debrided: 100 Instrument Used: 5mm curette Tissue Removed: Fibrin Severity: Limited To Skin Breakdown Amount of bleeding with debridement: Mild Bleeding Controlled with: Compression and gauze Patient tolerated procedure: Patient tolerated procedure well Assessment/Plan Assessment/Plan (1) Diabetes mellitus with multiple complications: CODE(S): E11.8 - Type 2 diabetes mellitus with unspecified complications (2) Edema, lower extremity: CODE(S): R60.0 - Localized edema (3) Peripheral vascular disease of lower extremity with ulceration: CODE(S): I73.9 - Peripheral vascular disease, unspecified; L97.909 - Non- pressure chronic ulcer of unspecified part of unspecified lower leg with unspecified severity PLAN: Wash left and right lower leg with antibacterial soap and apply Xeroform to wound base ,cover with Adaptic and dry dressing over top daily Aquacel extra to wound base cover with Adaptic and gauze Aram. Then apply double layer Tubigrip to both legs This is a daily dressing Follow-up in 2 week We will call with culture results if need to be on antibiotics
== END 2022-08-16 23:59 | disposition home or self-care (01) ==
LOC: WC 08:30
PROVIDERS: PCP Preventive Medicine Occupational Medicine; Visit Provider Nurse Practitioner
DX: L97.921 Non-pressure chronic ulcer of unspecified part of left lower leg limited to breakdown of skin (principal); E11.51 Type 2 diabetes mellitus with diabetic peripheral angiopathy without gangrene; Z79.4 Long term (current) use of insulin; S80.821S Blister (nonthermal), right lower leg, sequela; S80.822S Blister (nonthermal), left lower leg, sequela; R60.0 Localized edema; Z79.01 Long term (current) use of anticoagulants; Z79.82 Long term (current) use of aspirin; Z79.899 Other long term (current) drug therapy
CPT/HCPCS: 11042; 87070; 87075; 87077; 87186; 87205; 99213; G0463

== ENCOUNTER → 2022-08-19 | Outpatient (CLI) | payer MEDICARE, OTHER, SELFPAY ==
--- NOTE | 2022-08-19 13:58 | CT_ITS ---
STUDY: CT CHEST WITH CONTRAST REASON FOR EXAM: Male, 66 years old. Progressive dyspnea. History of prior Covid infection. RADIATION DOSAGE (If Supplied By Facility): CTDIvol = ( 27.45 ) mGy, DLP = ( 865.71 ) mGycm TECHNIQUE: Transaxial imaging was performed without intravenous administration. Coronal and axial reconstructions obtained as well. Individualized dose optimization techniques were used for this CT. COMPARISON: Comparison is made with prior examination dated 05/06/2016. FINDINGS: CHEST Once again, multiple venous collaterals are seen in the subcutaneous tissues overlying the anterior upper thoracic wall. Small benign-appearing bilateral axillary lymph nodes. The lungs are normal. There is no demonstrated pleural abnormality. There are calcifications of the coronary arteries. Mild cardiomegaly. Normal mediastinum. Normal hilar regions. Normal unenhanced pulmonary arteries. There is atherosclerotic calcification of the aortic arch. There are multi-level degenerative changes of the thoracic spine. There is no demonstrated abnormality of the visualized upper abdomen. CT/Chest without Contrast IMPRESSION: Stable examination. Prominence of the venous structures in the subcutaneous tissue overlying the upper thorax. Electronically Signed: Shahab Hatfield MD at 8:56 EDT ,
== END | disposition home or self-care (01) ==
LOC: CT 13:56
PROVIDERS: PCP Preventive Medicine Occupational Medicine; Referring Provider Internal Medicine Pulmonary Disease; Visit Provider Internal Medicine Pulmonary Disease
DX: I27.0 Primary pulmonary hypertension (principal); R06.00 Dyspnea, unspecified
CPT/HCPCS: 71250

== ENCOUNTER 2022-09-11 08:45 | Outpatient (RCR) | payer MEDICARE, OTHER, SELFPAY ==
[2022-08-17 01:44] VITALS: BP 162/87; PULSE 87; RESP 20; TEMP 35.3
[2022-08-21 09:31] VITALS: BP 140/69; PULSE 103; TEMP 36.6
--- NOTE | 2022-08-21 11:20 | PCM.WC.PN ---
History of Present Illness Date of Service: 08/21/22 Chief Complaint: Follow-up on bilateral lower leg ulcers. History of Wound: 66-year-old white male with history of peripheral vascular disease and has had openings done by Dr. Valadez in the past. Patient states he has been wearing his compression stockings but developed a huge blister on his left lower leg and on the right lower legs. This time he started using his Xeroform and healed most of all the wounds on the right leg are closed and scabbed. Left leg is quite large and almost healed but we will continue with Aquacel extra for now and then finish him off with Xeroform. Progress of Wound: Open wounds from venous ulcers that were blisters. Healing well has much smaller on right and left lower legs. Clean edges no sign of infection Subjective Subjective Patient is very pleased with how good they look and has not blistered since he started coming here. States still needs to make an appointment with Dr. Valadez Objective Data Objective Data Clean wounds smaller by measurement very superficial should be healed within the next week or 2 Vital Signs: Vital Signs Temp Pulse Resp BP 97.9 F 103 H 20 H 140/69 H 08/21/22 09:31 08/21/22 09:31 08/17/22 01:44 08/21/22 09:31 Physical Exam Const oriented x3 General Appearance: cooperative Exam Limitations: no limitations HEENT normocephalic Eyes PERRL Neck full ROM Resp normal respiratory effort Auscultation: clear to auscultation bilaterally Cardio regular rate and regular rhythm Palpation: normal PMI Rate: regular rate Rhythm: regular rhythm GI Auscultation: normoactive bowel sounds Palpation: soft and no hepatosplenomegaly external exam normal Extremity normal to inspection Skin no rashes or lesions noted Skin Narrative: Open blisters on right and left lower extremities. Right lower extremities are healed and scabbed left lower extremity is superficial and rather large. Neuro oriented x3 Psych Appearance: grossly normal Speech: normal speech Thought Content: normal thought content Judgement: judgement good Debridement Note Debridement Note Wound debrided: Right lower leg venous ulcer Laterality: Right Type of Debridement: Excisional debridement Anesthesia Used: 5% Lidocaine Gel Depth: Down to and including healthy tissue Percentage of wound debrided: 100 Instrument Used: 5mm curette Tissue Removed: Fibrin Severity: Limited To Skin Breakdown Amount of bleeding with debridement: Mild Bleeding Controlled with: Compression and gauze Patient tolerated procedure: Patient tolerated procedure well Post-Debridement Measurements and Additional Note: Post-Debridement Measurements/Treatment MOHAMUD - Nurse 1 - General Ulcer Assessment Start: 08/21/22 09:02 Freq: Status: Active Protocol: CHRISTOFER Activity Type Activity Date Activity User E-sign Co-sign Detail Recorded Client Recorded Date Recorded By Document 08/21/22 09:31 FIDEL [id number] 08/21/22 09:33 FIDEL 08/21/22 09:31 WC - Today's Visit Information 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 Any new allergies or adverse reactions No Had a fall/change in ADL's that may No increase risk of falls Signs or symptoms of abuse and/or No neglect since last visit Have you been in the hospital since your No last visit? Has dressing in place as prescribed Yes Has compression in place as prescribed Yes Has offloadiing in place as prescribed N/A Experienced any changes in pain level or No management Left Footwear Regular Shoe Right Footwear Regular Shoe Pain Scale: 0-10 Numeric Is Patient Pain Free? Yes - Nurse 1 - General Ulcer Measurement Start: 08/21/22 09:02 Freq: Status: Active Protocol: Activity Type Activity Date Activity User E-sign Co-sign Detail Recorded Client Recorded Date Recorded By Document 08/21/22 09: FIDEL [id number] 08/21/22 09:33 FIDEL 08/21/22 09:31 Wound Center Nurse 1 #6 Right Medial Lower extremity -Combined with other wound No -Current Size (cm) - Length 1 -Current Size (cm) - Width 0.5 -Current Size (cm) - Depth 0.1 -Total Square Cm 0.5 -Photo Taken No -Tunneling No -Undermining/Tunneling No -Circular Undermining No -Change in Wound Grade/Stage No -Exudate Amt Medium -Exudate Type Serosanguineous -Wound Margin Distinct, Outline Attached -Granulation Amt Small (1-33%) -Granulation Quality N/A -Slough/Fibrin Yes -Necrosis Amt Small (1-33%) -Necrotic Tissue Type Adherent Slough -Structure Exposed N/A -Texture (Martha-wound Skin Appearance) No Abnormality, Assessed -Moisture (Martha-wound Skin Appearance) No Abnormality, Assessed -Color (Martha-wound Skin Appearance) No Abnormality, Assessed -Temperature (Martha-wound Skin No Abnormality Appearance) (Pt Warm) -Tenderness on Palpation (Martha-wound No Skin Appearance) -Ulcer Cleansing Rinsed/ Irrigated with Saline -Foul Odor after Cleansing No -Anesthetic Used 5% Lidocaine Gel #4 Left Lateral Lower Extremity -Combined with other wound No -Current Size (cm) - Length 1.5 -Current Size (cm) - Width 0.8 -Current Size (cm) - Depth 0.1 -Total Square Cm 1.20 -Photo Taken No -Tunneling No -Undermining/Tunneling No -Circular Undermining No -Change in Wound Grade/Stage No -Exudate Amt Small -Exudate Type Serosanguineous -Wound Margin Distinct, Outline Attached -Granulation Amt Small (1-33%) -Granulation Quality N/A -Slough/Fibrin Yes -Necrosis Amt Small (1-33%) -Necrotic Tissue Type Adherent Slough -Structure Exposed N/A -Texture (Martha-wound Skin Appearance) No Abnormality, Assessed -Moisture (Martha-wound Skin Appearance) No Abnormality, Assessed -Color (Martha-wound Skin Appearance) No Abnormality, Assessed -Temperature (Martha-wound Skin No Abnormality Appearance) (Pt Warm) -Tenderness on Palpation (Martha-wound No Skin Appearance) -Ulcer Cleansing Rinsed/ Irrigated with Saline -Foul Odor after Cleansing No -Anesthetic Used 5% Lidocaine Gel Lower Limb Edema Present No Right Calf (cm) 42 Right Ankle (cm) 24 Left Calf (cm) 41 Left Ankle (cm) 23 WC - Nurse 2 - General Ulcer CM Notes Start: 08/21/22 09:02 Freq: Status: Active Protocol: Activity Type Activity Date Activity User E-sign Co-sign Detail Recorded Client Recorded Date Recorded By Document 08/21/22 09:02 MW [id number] 08/21/22 09:14 MW 08/21/22 09:02 Wound Center Nurse 2 #6 Right Medial Lower extremity -Time 09:12 -Correct Patient Yes -Correct Side, Site, Position Yes -Correct Procedure Yes -Procedure Performed Yes -Type of Procedure Debridement -Clinical Debridement Subcutaneous -Tissue Removed Subcutaneous -Post Debridement (cm) - Length 1.3 -Post Debridement (cm) - Width 0.4 -Post Debridement (cm) - Depth 0.1 -Total Square (Post) (cm) 0.52 -Area of Debridement (cm) - Length 1.3 -Area of Debridement (cm) - Width 0.4 -Total Square (Area) (cm) 0.52 -Tunneling No -Undermining/Tunneling No -Circular Undermining No -Wound/Ulcer Outcome Not Healed -Ulcer Cleansing Rinsed/ Irrigated with Saline -Foul Odor after Cleansing No -Bioengineered Tissue No -Bleeding Controlled with Pressure -Treatment Response Procedure Tolerated Well -Offloading No -Debridement - Subq, 1st 20sq cm Yes #4 Left Lateral Lower Extremity -Time 09:12 -Correct Patient Yes -Correct Side, Site, Position Yes -Correct Procedure Yes -Procedure Performed Yes -Type of Procedure Debridement -Clinical Debridement Subcutaneous -Tissue Removed Subcutaneous -Post Debridement (cm) - Length 1.4 -Post Debridement (cm) - Width 0.7 -Post Debridement (cm) - Depth 0.1 -Total Square (Post) (cm) 0.98 -Area of Debridement (cm) - Length 1.4 -Area of Debridement (cm) - Width 0.7 -Total Square (Area) (cm) 0.98 -Tunneling No -Undermining/Tunneling No -Circular Undermining No -Wound/Ulcer Outcome Not Healed -Ulcer Cleansing Rinsed/ Irrigated with Saline -Foul Odor after Cleansing No -Bioengineered Tissue No -Bleeding Controlled with Pressure -Treatment Response Procedure Tolerated Well -Offloading No -Debridement - Subq, 1st 20sq cm No Pain Scale: 0-10 Numeric Is Patient Pain Free? Yes Additional Wound Wound debrided: Left lower leg venous ulcer Laterality: Left Type of Debridement: Excisional debridement Anesthesia Used: 5% Lidocaine Gel Depth: in the subcutaneous layer Percentage of wound debrided: 100 Instrument Used: 5mm curette Tissue Removed: Fibrin Severity: Limited To Skin Breakdown Bleeding Controlled with: Compression and gauze Patient tolerated procedure: Patient tolerated procedure well Assessment/Plan Assessment/Plan (1) Diabetes mellitus with multiple complications: CODE(S): E11.8 - Type 2 diabetes mellitus with unspecified complications (2) Edema, lower extremity: CODE(S): R60.0 - Localized edema (3) Peripheral vascular disease of lower extremity with ulceration: CODE(S): I73.9 - Peripheral vascular disease, unspecified; L97.909 - Non-pressure chronic ulcer of unspecified part of unspecified lower leg with unspecified severity PLAN: Wash left and right lower leg with antibacterial soap and apply Xeroform to wound base ,cover with Adaptic and dry dressing over top daily Aquacel extra to wound base cover with Adaptic and gauze Aram. Then apply double layer Tubigrip to both legs This is a daily dressing Follow-up in 1 week
[2022-08-28 08:34] VITALS: BP 143/76; PULSE 105; TEMP 35.3
--- NOTE | 2022-08-28 10:04 | PN.PCM_ITS ---
History of Present Illness Date of Service: 08/28/22 Chief Complaint: Follow-up on bilateral lower leg ulcers. History of Wound: 66-year-old white male with history of peripheral vascular disease and has had openings done by Dr. Valadez in the past. Patient states he has been wearing his compression stockings but developed a huge blister on his left lower leg and on the right lower legs. This time he started using his Xeroform and healed most of all the wounds on the right leg are closed and scabb ed. Left leg is quite large and almost healed but we will continue with Aquacel extra for now and then finish him off with Xeroform. Progress of Wound: Open wounds from venous ulcers that were blisters. Healing well has much smaller on right and left lower legs. Clean edges no sign of infection. The right leg is healed left leg is slightly open we will see him in 2 weeks he should be healed out by then. Subjective Subjective Patient is pleased with outcomes still has to follow-up with Dr. Valadez Objective Data Objective Data Right leg is healed left leg will be healed within the next week or 2. Vital Signs: Vital Signs Temp Pulse Resp BP 95.5 F L 105 H 20 H 143/76 H 08/28/22 08:34 08/28/22 08:34 08/17/22 01:44 08/28/22 08:34 Debridement Note Debridement Note Wound debrided: Left lower leg venous ulcer Laterality: Left Type of Debridement: Excisional debridement Anesthesia Used: 5% Lidocaine Gel Depth: Down to and including healthy tissue Percentage of wound debrided: 100 Instrument Used: 5mm curette Tissue Removed: Devitalized and fibrin Severity: Limited To Skin Breakdown Amount of bleeding with debridement: Mild Bleeding Controlled with: Compression and gauze Patient tolerated procedure: Patient tolerated procedure well Post-Debridement Measurements and Additional Note: Post-Debridement Measurements/Treatment MOHAMUD - Nurse 1 - General Ulcer Assessment Start: 08/21/22 09:02 Freq: Status: Active Protocol: CHRISTOFER Activity Type Activity Date Activity User E-sign Co-sign Detail Recorded Client Recorded Date Recorded By Document 08/21/22 09:31 AK [id number] 08/21/22 09:33 AK Document 08/28/22 08:34 AK [id number] 08/28/22 08:37 FIDEL 08/21/22 08/28/22 09:31 08:34 - Today's Visit Information Type of service Follow-up Visit 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 Any new allergies or adverse reactions No No Had a fall/change in ADL's that may No No increase risk of falls Signs or symptoms of abuse and/or No No neglect since last visit Have you been in the hospital since your No No last visit? Has dressing in place as prescribed Yes Yes Has compression in place as prescribed Yes Yes Has offloadiing in place as prescribed N/A N/A Experienced any changes in pain level or No No management Left Footwear Regular Shoe Regular Shoe Right Footwear Regular Shoe Regular Shoe Pain Scale: 0-10 Numeric Is Patient Pain Free? Yes Yes - Nurse 1 - General Ulcer Measurement Start: 08/21/22 09:02 Freq: Status: Active Protocol: Activity Type Activity Date Activity User E-sign Co-sign Detail Recorded Client Recorded Date Recorded By Document 08/21/22 09:31 ID [id number] 08/21/22 09:33 ID Document 08/28/22 08:34 AK [id number] 08/28/22 08:37 AK 08/21/22 08/28/22 09:31 08:34 Wound Center Nurse 1 #6 Right Medial Lower extremity -Combined with other wound No No -Current Size (cm) - Length 1 0.5 -Current Size (cm) - Width 0.5 0.2 -Current Size (cm) - Depth 0.1 0.1 -Total Square Cm 0.5 0.10 -Date of Last Picture (Recall this 08/28/22 field) -Photo Taken No Yes -Tunneling No No -Undermining/Tunneling No No -Circular Undermining No No -Change in Wound Grade/Stage No No -Exudate Amt Medium Small -Exudate Type Serosanguineous Serosanguineous -Wound Margin Distinct, Distinct, Outline Outline Attached Attached -Granulation Amt Small (1-33%) Small (1-33%) -Granulation Quality N/A N/A -Slough/Fibrin Yes Yes -Necrosis Amt Small (1-33%) Small (1-33%) -Necrotic Tissue Type Adherent Slough Adherent Slough -Structure Exposed N/A N/A -Texture (Martha-wound Skin Appearance) No Abnormality, No Abnormality, Assessed Assessed -Moisture (Martha-wound Skin Appearance) No Abnormality, No Abnormality, Assessed Assessed -Color (Martha-wound Skin Appearance) No Abnormality, No Abnormality, Assessed Assessed -Temperature (Martha-wound Skin No Abnormality No Abnormality Appearance) (Pt Warm) (Pt Warm) -Tenderness on Palpation (Martha-wound No No Skin Appearance) -Ulcer Cleansing Rinsed/ Rinsed/ Irrigated with Irrigated with Saline Saline -Foul Odor after Cleansing No No -Anesthetic Used 5% Lidocaine 5% Lidocaine Gel Gel #4 Left Lateral Lower Extremity -Combined with other wound No No -Current Size (cm) - Length 1.5 1 -Current Size (cm) - Width 0.8 0.5 -Current Size (cm) - Depth 0.1 0.1 -Total Square Cm 1.20 0.5 -Date of Last Picture (Recall this 08/28/22 field) -Photo Taken No Yes -Tunneling No No -Undermining/Tunneling No No -Circular Undermining No No -Change in Wound Grade/Stage No No -Exudate Amt Small Small -Exudate Type Serosanguineous Serosanguineous -Wound Margin Distinct, Distinct, Outline Outline Attached Attached -Granulation Amt Small (1-33%) Small (1-33%) -Granulation Quality N/A N/A -Slough/Fibrin Yes Yes -Necrosis Amt Small (1-33%) Small (1-33%) -Necrotic Tissue Type Adherent Slough Adherent Slough -Structure Exposed N/A N/A -Texture (Martha-wound Skin Appearance) No Abnormality, No Abnormality, Assessed Assessed -Moisture (Martha-wound Skin Appearance) No Abnormality, No Abnormality, Assessed Assessed -Color (Martha-wound Skin Appearance) No Abnormality, No Abnormality, Assessed Assessed -Temperature (Martha-wound Skin No Abnormality No Abnormality Appearance) (Pt Warm) (Pt Warm) -Tenderness on Palpation (Martha-wound No No Skin Appearance) -Ulcer Cleansing Rinsed/ Rinsed/ Irrigated with Irrigated with Saline Saline -Foul Odor after Cleansing No No -Anesthetic Used 5% Lidocaine 5% Lidocaine Gel Gel Lower Limb Edema Present No No Right Calf (cm) 42 Point of measurement (cm from the medial 45 instep) Right Ankle (cm) 24 Point of Measurement (cm from the medial 24 instep) Left Calf (cm) 41 43 Left Ankle (cm) 23 24 WC - Nurse 2 - General Ulcer CM Notes Start: 08/21/22 09:02 Freq: Status: Active Protocol: Activity Type Activity Date Activity User E-sign Co-sign Detail Recorded Client Recorded Date Recorded By Document 08/21/22 09:02 MW [id number] 08/21/22 09:14 MW Document 08/28/22 08:54 MW [id number] 08/28/22 08:55 MW 08/21/22 08/28/22 09:02 08:54 Wound Center Nurse 2 #6 Right Medial Lower extremity -Time 09:12 08:54 -Correct Patient Yes Yes -Correct Side, Site, Position Yes Yes -Correct Procedure Yes Yes -Procedure Performed Yes No -Type of Procedure Debridement -Clinical Debridement Subcutaneous -Tissue Removed Subcutaneous -Post Debridement (cm) - Length 1.3 0 -Post Debridement (cm) - Width 0.4 0 -Post Debridement (cm) - Depth 0.1 -Total Square (Post) (cm) 0.52 0 -Area of Debridement (cm) - Length 1.3 -Area of Debridement (cm) - Width 0.4 -Total Square (Area) (cm) 0.52 -Tunneling No -Undermining/Tunneling No -Circular Undermining No -Wound/Ulcer Outcome Not Healed Healed- Epithelialized -Ulcer Cleansing Rinsed/ Irrigated with Saline -Foul Odor after Cleansing No -Bioengineered Tissue No -Bleeding Controlled with Pressure -Treatment Response Procedure Tolerated Well -Offloading No -Debridement - Subq, 1st 20sq cm Yes #4 Left Lateral Lower Extremity -Time 09:12 08:54 -Correct Patient Yes Yes -Correct Side, Site, Position Yes Yes -Correct Procedure Yes Yes -Procedure Performed Yes Yes -Type of Procedure Debridement Debridement -Clinical Debridement Subcutaneous Subcutaneous -Tissue Removed Subcutaneous Subcutaneous -Post Debridement (cm) - Length 1.4 0.7 -Post Debridement (cm) - Width 0.7 0.5 -Post Debridement (cm) - Depth 0.1 0.1 -Total Square (Post) (cm) 0.98 0.35 -Area of Debridement (cm) - Length 1.4 0.7 -Area of Debridement (cm) - Width 0.7 0.5 -Total Square (Area) (cm) 0.98 0.35 -Tunneling No No -Undermining/Tunneling No No -Circular Undermining No No -Wound/Ulcer Outcome Not Healed Not Healed -Ulcer Cleansing Rinsed/ Rinsed/ Irrigated with Irrigated with Saline Saline -Foul Odor after Cleansing No No -Bioengineered Tissue No No -Bleeding Controlled with Pressure Pressure -Treatment Response Procedure Procedure Tolerated Well Tolerated Well -Offloading No No -Debridement - Subq, 1st 20sq cm No Yes Pain Scale: 0-10 Numeric Is Patient Pain Free? Yes Yes - Nurse 3 - General Ulcer D/C NN Start: 08/21/22 09:02 Freq: Status: Active Protocol: Activity Type Activity Date Activity User E-sign Co-sign Detail Recorded Client Recorded Date Recorded By Document 08/21/22 12:15 AK [id number] 08/21/22 12:17 AK Document 08/28/22 09:12 AK [id number] 08/28/22 09:14 AK 08/21/22 08/28/22 12:15 09:12 Wound Care Nurse 3 #6 Right Medial Lower extremity -Ulcer Cleansing Rinsed/ Irrigated with Saline -Foul Odor after Cleansing No -Negative Pressure Wound Therapy N/A -Other Dressing xeroform -Primary Dressing Covered/Secured with Dry Gauze & Roll Gauze, Secured with Tape #4 Left Lateral Lower Extremity -Ulcer Cleansing Rinsed/ Rinsed/ Irrigated with Irrigated with Saline Saline -Foul Odor after Cleansing No -Negative Pressure Wound Therapy N/A -Other Dressing xeroform xeroform -Primary Dressing Covered/Secured with Dry Gauze, Dry Gauze, Secured with Secured with Tape Tape Pain Scale: 0-10 Numeric Is Patient Pain Free? Yes Yes - Visit Discharge Discharge Condition Stable Stable Ambulatory Status Ambulatory Ambulatory Transportation Private Auto Private Auto Medication Reconcilliation completed & Yes Yes provided to patient/care provider Clinical Summary of Care Provided Yes Yes Assessment/Plan Assessment/Plan (1) Diabetes mellitus with multiple complications: CODE(S): E11.8 - Type 2 diabetes mellitus with unspecified complications (2) Edema, lower extremity: CODE(S): R60.0 - Localized edema (3) Peripheral vascular disease of lower extremity with ulceration: CODE(S): I73.9 - Peripheral vascular disease, unspecified; L97.909 - Non-p ressure chronic ulcer of unspecified part of unspecified lower leg with unspecified severity PLAN: Wash left lower leg with antibacterial soap and apply Xeroform to wound base ,cover with Adaptic and dry dressing over top daily Aquacel extra to wound base cover with Adaptic and gauze Aram. Then apply double layer Tubigrip to both legs This is a daily dressing Follow-up in 2 week
[2022-09-11 08:39] VITALS: BP 153/83; PULSE 97; RESP 20; TEMP 36.5
--- NOTE | 2022-09-11 10:51 | PCM.WC.PN ---
History of Present Illness Date of Service: 09/11/22 Chief Complaint: Follow-up on bilateral lower leg ulcers. History of Wound: 66-year-old white male with history of peripheral vascular disease and has had openings done by Dr. Valadez in the past. Patient states he has been wearing his compression stockings but developed a huge blister on his left lower leg and on the right lower legs. This time he started using his Xeroform and healed most of all the wounds on the right leg are closed and scabbed. Left leg is quite large and almost healed but we will continue with Aquacel extra for now and then finish him off with Xeroform. Progress of Wound: All wounds are closed patient will be discharged from the wound center and follow-up as needed Subjective Subjective Patient is pleased with his results. We will continue to follow-up with Dr. Valadez. We will give him an extra 2 pair of double layer Tubigrip's but he should get back into his own compression stockings. Objective Data Objective Data No sign of open wounds skin is nice and smooth patient has been using amLactin cream. Patient will be discharged from the wound center Vital Signs: Vital Signs Temp Pulse Resp BP 97.7 F L 97 20 H 153/83 H 09/11/22 08:39 09/11/22 08:39 09/11/22 08:39 09/11/22 08:39 Physical Exam Const oriented x3 General Appearance: cooperative Exam Limitations: no limitations HEENT normocephalic Eyes PERRL Neck full ROM Resp normal respiratory effort Auscultation: clear to auscultation bilaterally Cardio regular rate and regular rhythm Palpation: normal PMI Rate: regular rate Rhythm: regular rhythm GI Auscultation: normoactive bowel sounds Palpation: soft and no hepatosplenomegaly external exam normal Extremity normal to inspection Skin no rashes or lesions noted Skin Narrative: Open blisters on right and left lower extremities. Right lower extremities are healed and scabbed left lower extremity is superficial and rather large. Neuro oriented x3 Psych Appearance: grossly normal Speech: normal speech Thought Content: normal thought content Judgement: judgement good Debridement Note Debridement Note No debridement was completed: No debridement was completed today Post-Debridement Measurements and Additional Note: Post-Debridement Measurements/Treatment [email or web address] - Nurse 1 - General Ulcer Assessment Start: 08/21/22 09:02 Freq: Status: Active Protocol: SAMANTHAT Activity Type Activity Date Activity User E-sign Co-sign Detail Recorded Client Recorded Date Recorded By Document 08/21/22 09:31 AK [id number] 08/21/22 09:33 AK Document 08/28/22 08:34 AK [id number] 08/28/22 08:37 AK Document 09/11/22 08:39 DL [id number] 09/11/22 08:43 DL 08/21/22 08/28/22 09/11/22 09:31 08:34 08:39 - Today's Visit Information Type of service Follow-up Visit Follow-up Visit Follow-up Visit (Physician/WORKDAY SENIOR ASSOCIATE (Physician/WORKDAY SENIOR ASSOCIATE (Physician/WORKDAY SENIOR ASSOCIATE ) ) ) Arrival Mode Ambulatory Ambulatory Ambulatory Transfer Assistance None Patient Identification Verified (Name & No Yes Yes ) Patient Requires Transmission-Based No No No Precautions Safety Precautions NA Finger Stick Blood Sugar(mg/dl) (if 153 indicated): Blood Sugar Stated by Patient Vital Signs Temperature (97.8 F-99.1 F) 97.9 F 95.5 F L 97.7 F L Temperature Source Temporal Temporal Temporal Pulse Rate (60-100) 103 H 105 H 97 Pulse Location Monitor Monitor Monitor Respiratory Rate (12-18) 20 H Respiratory rate source Observation Blood Pressure (90/60-120/80) 140/69 H 143/76 H 153/83 H Blood Pressure Mean (mm Hg) 92 98 106 Source Monitor Monitor Monitor History Since Last Visit- (Skip if this is Patient's initial visit) Have you changed medications since your No No No last visit? Any new allergies or adverse reactions No No No Had a fall/change in ADL's that may No No No increase risk of falls Signs or symptoms of abuse and/or No No No neglect since last visit Have you been in the hospital since your No No No last visit? Has dressing in place as prescribed Yes Yes Yes Has compression in place as prescribed Yes Yes Yes Has offloadiing in place as prescribed N/A N/A N/A Experienced any changes in pain level or No No No management Left Footwear Regular Shoe Regular Shoe Regular Shoe Right Footwear Regular Shoe Regular Shoe Regular Shoe Pain Scale: 0-10 Numeric Is Patient Pain Free? Yes Yes Yes - Nurse 1 - General Ulcer Measurement Start: 08/21/22 09:02 Freq: Status: Active Protocol: Activity Type Activity Date Activity User E-sign Co-sign Detail Recorded Client Recorded Date Recorded By Document 08/21/22 09:31 AK [id number] 08/21/22 09:33 AK Document 08/28/22 08:34 AK [id number] 08/28/22 08:37 AK Document 09/11/22 08:39 DL [id number] 09/11/22 08:43 DL 08/21/22 08/28/22 09/11/22 09:31 08:34 08:39 Wound Center Nurse 1 #6 Right Medial Lower extremity -Combined with other wound No No -Current Size (cm) - Length 1 0.5 -Current Size (cm) - Width 0.5 0.2 -Current Size (cm) - Depth 0.1 0.1 -Total Square Cm 0.5 0.10 -Date of Last Picture (Recall this 08/28/22 field) -Photo Taken No Yes -Tunneling No No -Undermining/Tunneling No No -Circular Undermining No No -Change in Wound Grade/Stage No No -Exudate Amt Medium Small -Exudate Type Serosanguineous Serosanguineous -Wound Margin Distinct, Distinct, Outline Outline Attached Attached -Granulation Amt Small (1-33%) Small (1-33%) -Granulation Quality N/A N/A -Slough/Fibrin Yes Yes -Necrosis Amt Small (1-33%) Small (1-33%) -Necrotic Tissue Type Adherent Slough Adherent Slough -Structure Exposed N/A N/A -Texture (Martha-wound Skin Appearance) No Abnormality, No Abnormality, Assessed Assessed -Moisture (Martha-wound Skin Appearance) No Abnormality, No Abnormality, Assessed Assessed -Color (Martha-wound Skin Appearance) No Abnormality, No Abnormality, Assessed Assessed -Temperature (Martha-wound Skin No Abnormality No Abnormality Appearance) (Pt Warm) (Pt Warm) -Tenderness on Palpation (Martha-wound No No Skin Appearance) -Ulcer Cleansing Rinsed/ Rinsed/ Irrigated with Irrigated with Saline Saline -Foul Odor after Cleansing No No -Anesthetic Used 5% Lidocaine 5% Lidocaine Gel Gel #4 Left Lateral Lower Extremity -Combined with other wound No No -Current Size (cm) - Length 1.5 1 0.2 -Current Size (cm) - Width 0.8 0.5 0.2 -Current Size (cm) - Depth 0.1 0.1 0.2 -Total Square Cm 1.20 0.5 0.04 -Date of Last Picture (Recall this 08/28/22 field) -Photo Taken No Yes Yes -Tunneling No No -Undermining/Tunneling No No -Circular Undermining No No -Change in Wound Grade/Stage No No -Exudate Amt Small Small Small -Exudate Type Serosanguineous Serosanguineous Serosanguineous -Wound Margin Distinct, Distinct, Distinct, Outline Outline Outline Attached Attached Attached -Granulation Amt Small (1-33%) Small (1-33%) Small (1-33%) -Granulation Quality N/A N/A Red -Slough/Fibrin Yes Yes -Necrosis Amt Small (1-33%) Small (1-33%) None Present (0 %) -Necrotic Tissue Type Adherent Slough Adherent Slough -Structure Exposed N/A N/A N/A -Texture (Martha-wound Skin Appearance) No Abnormality, No Abnormality, Scarring Assessed Assessed -Moisture (Martha-wound Skin Appearance) No Abnormality, No Abnormality, No Abnormality Assessed Assessed -Color (Martha-wound Skin Appearance) No Abnormality, No Abnormality, Hemosiderin Assessed Assessed Staining -Temperature (Martha-wound Skin No Abnormality No Abnormality No Abnormality Appearance) (Pt Warm) (Pt Warm) (Pt Warm) -Tenderness on Palpation (Martha-wound No No No Skin Appearance) -Ulcer Cleansing Rinsed/ Rinsed/ Rinsed/ Irrigated with Irrigated with Irrigated with Saline Saline Saline -Foul Odor after Cleansing No No No -Anesthetic Used 5% Lidocaine 5% Lidocaine 5% Lidocaine Gel Gel Gel Lower Limb Edema Present No No Right Calf (cm) 42 42.2 Point of measurement (cm from the medial 45 instep) Right Ankle (cm) 24 23.5 Point of Measurement (cm from the medial 24 instep) Left Calf (cm) 41 43 42.2 Left Ankle (cm) 23 24 23.5 WC - Nurse 2 - General Ulcer CM Notes Start: 08/21/22 09:02 Freq: Status: Active Protocol: Activity Type Activity Date Activity User E-sign Co-sign Detail Recorded Client Recorded Date Recorded By Document 08/21/22 09:02 MW [id number] 08/21/22 09:14 MW Document 08/28/22 08:54 MW [id number] 08/28/22 08:55 MW Document 09/11/22 09:02 MW [id number] 09/11/22 09:04 MW 08/21/22 08/28/22 09/11/22 09:02 08:54 09:02 Wound Center Nurse 2 #6 Right Medial Lower extremity -Time 09:12 08:54 -Correct Patient Yes Yes -Correct Side, Site, Position Yes Yes -Correct Procedure Yes Yes -Procedure Performed Yes No -Type of Procedure Debridement -Clinical Debridement Subcutaneous -Tissue Removed Subcutaneous -Post Debridement (cm) - Length 1.3 0 -Post Debridement (cm) - Width 0.4 0 -Post Debridement (cm) - Depth 0.1 -Total Square (Post) (cm) 0.52 0 -Area of Debridement (cm) - Length 1.3 -Area of Debridement (cm) - Width 0.4 -Total Square (Area) (cm) 0.52 -Tunneling No -Undermining/Tunneling No -Circular Undermining No -Wound/Ulcer Outcome Not Healed Healed- Epithelialized -Ulcer Cleansing Rinsed/ Irrigated with Saline -Foul Odor after Cleansing No -Bioengineered Tissue No -Bleeding Controlled with Pressure -Treatment Response Procedure Tolerated Well -Offloading No -Debridement - Subq, 1st 20sq cm Yes #4 Left Lateral Lower Extremity -Time 09:12 08:54 09:03 -Correct Patient Yes Yes Yes -Correct Side, Site, Position Yes Yes Yes -Correct Procedure Yes Yes Yes -Procedure Performed Yes Yes No -Type of Procedure Debridement Debridement -Clinical Debridement Subcutaneous Subcutaneous -Tissue Removed Subcutaneous Subcutaneous -Post Debridement (cm) - Length 1.4 0.7 0 -Post Debridement (cm) - Width 0.7 0.5 0 -Post Debridement (cm) - Depth 0.1 0.1 0 -Total Square (Post) (cm) 0.98 0.35 0 -Area of Debridement (cm) - Length 1.4 0.7 -Area of Debridement (cm) - Width 0.7 0.5 -Total Square (Area) (cm) 0.98 0.35 -Tunneling No No -Undermining/Tunneling No No -Circular Undermining No No -Wound/Ulcer Outcome Not Healed Not Healed Healed- Epithelialized -Ulcer Cleansing Rinsed/ Rinsed/ Irrigated with Irrigated with Saline Saline -Foul Odor after Cleansing No No -Bioengineered Tissue No No -Bleeding Controlled with Pressure Pressure -Treatment Response Procedure Procedure Tolerated Well Tolerated Well -Offloading No No -Debridement - Subq, 1st 20sq cm No Yes Pain Scale: 0-10 Numeric Is Patient Pain Free? Yes Yes Yes - Nurse 3 - General Ulcer D/C NN Start: 08/21/22 09:02 Freq: Status: Active Protocol: Activity Type Activity Date Activity User E-sign Co-sign Detail Recorded Client Recorded Date Recorded By Document 08/21/22 12:15 AK [id number] 08/21/22 12:17 AK Document 08/28/22 09:12 AK [id number] 08/28/22 09:14 AK 08/21/22 08/28/22 12:15 09:12 Wound Care Nurse 3 #6 Right Medial Lower extremity -Ulcer Cleansing Rinsed/ Irrigated with Saline -Foul Odor after Cleansing No -Negative Pressure Wound Therapy N/A -Other Dressing xeroform -Primary Dressing Covered/Secured with Dry Gauze & Roll Gauze, Secured with Tape #4 Left Lateral Lower Extremity -Ulcer Cleansing Rinsed/ Rinsed/ Irrigated with Irrigated with Saline Saline -Foul Odor after Cleansing No -Negative Pressure Wound Therapy N/A -Other Dressing xeroform xeroform -Primary Dressing Covered/Secured with Dry Gauze, Dry Gauze, Secured with Secured with Tape Tape Pain Scale: 0-10 Numeric Is Patient Pain Free? Yes Yes - Visit Discharge Discharge Condition Stable Stable Ambulatory Status Ambulatory Ambulatory Transportation Private Auto Private Auto Medication Reconcilliation completed & Yes Yes provided to patient/care provider Clinical Summary of Care Provided Yes Yes Assessment/Plan Assessment/Plan (1) Diabetes mellitus with multiple complications: CODE(S): E11.8 - Type 2 diabetes mellitus with unspecified complications (2) Edema, lower extremity: CODE(S): R60.0 - Localized edema (3) Peripheral vascular disease of lower extremity with ulceration: CODE(S): I73.9 - Peripheral vascular disease, unspecified; L97.909 - Non-pressure chronic ulcer of unspecified part of unspecified lower leg with unspecified severity PLAN: All areas resolved patient is to continue wearing compression stockings and follow-up as needed patient is discharged from the wound center
== END 2022-09-16 23:59 | disposition home or self-care (01) ==
LOC: WC 08:45
PROVIDERS: PCP Preventive Medicine Occupational Medicine; Visit Provider Nurse Practitioner
DX: L97.911 Non-pressure chronic ulcer of unspecified part of right lower leg limited to breakdown of skin (principal); E11.51 Type 2 diabetes mellitus with diabetic peripheral angiopathy without gangrene; I73.9 Peripheral vascular disease, unspecified; Z79.4 Long term (current) use of insulin; S80.821S Blister (nonthermal), right lower leg, sequela; X58.XXXS Exposure to other specified factors, sequela; I87.2 Venous insufficiency (chronic) (peripheral); R60.0 Localized edema; Z79.82 Long term (current) use of aspirin; Z79.01 Long term (current) use of anticoagulants; Z79.899 Other long term (current) drug therapy
CPT/HCPCS: 11042; 99213; G0463

== ENCOUNTER → 2023-05-14 | Outpatient (CLI) | payer MEDICARE, OTHER, SELFPAY ==
[2023-05-14 17:45] LABS: BNP,B-Type NATRIURETIC PEPTIDE 62.1 pg/mL (0-100)
== END | disposition home or self-care (01) ==
LOC: MTLAB 15:45
PROVIDERS: PCP Preventive Medicine Occupational Medicine; Referring Provider Internal Medicine Pulmonary Disease; Visit Provider Internal Medicine Pulmonary Disease
DX: I27.0 Primary pulmonary hypertension (principal); R06.02 Shortness of breath
CPT/HCPCS: 36415; 83880

== ENCOUNTER 2023-09-25 15:00 | Outpatient (RCR) | payer MEDICARE, OTHER, SELFPAY ==
[2023-09-18 14:09] VITALS: BP 141/61; PULSE 75; TEMP 35.6; BMI 39.4
--- NOTE | 2023-09-19 07:31 | PCM.WC.HP ---
History of Present Illness Date of Service: 09/18/23 Chief Complaint: Bilateral lower extremity ulcerations History of Wound: Mr. Centeno is a 67-year-old male who presents to the wound center care center today as referred by his propagation worker Dr. Cuello for evaluation and management of bilateral lower extremity ulcerations and swelling. Patient has a history of chronic bilateral lower extremity edema and recurrent ulcerations. He is diagnosed with lipodermatosclerosis and does have significant hemosiderin deposition to the bilateral lower legs as well. He relates that the chronic lower extremity edema and discoloration started in his 20s and he has had multiple recurrent wounds over the last few decades. He denies any history of VTE. He tells me that he has recently been on a keto diet and lost 30 to 40 pounds which has helped with his lower extremity edema though unfortunately still developing recurrent wounds relatively unprovoked. He does typically wear compression, though he does admit that his current stockings are potentially 5 or more years old. In addition when he does develop the ulcerations is legs to become very tender and he is not able to tolerate compression at that time. He relates that 2 months ago he developed redness, increased swelling, and wounds again for which he was seen by Dr. Cuello. He has completed a round of antibiotics for suspected cellulitis. He has also been applying steroid cream as prescribed by Dr. Cuello. Overall he relates that the appearance is significantly improved and he no longer has drainage from these areas. He has been seen by vascular, Dr. Valadez, in the past. He relates that he did what sounds like sclerotherapy but he really did not see any benefit from that. This was 1 to 2 years ago and he has not had any venous imaging or followed up with Dr. Valadez since that time. Progress of Wound: On exam today, I do see scabbing over the prior ulcerations but these do appear healed bilaterally today. I do not appreciate any weeping, erythema, warmth, focal swelling. He does have significant hemosiderin deposition and lipodermatosclerosis bilaterally from foot to knee. [facility] Medical History Asthma Atrial fibrillation BiPAP (biphasic positive airway pressure) dependence Diabetes Former smoker Hernia Hypertension Irregular heart beat Sleep apnea Home Medications aspirin 81 mg chewable tablet 81 mg PO DAILY@0800 05/05/16 [History Last Taken 05/30/21] tramadol 50 mg tablet 100 mg PO Q6H PRN PRN Pain 05/06/16 [History Last Taken 05/30/21] ascorbic acid (vitamin C) 1,000 mg tablet 1 g PO DAILY supplemetn 05/30/21 [History Last Taken 05/30/21] cholecalciferol (vitamin D3) 250 mcg (10,000 unit) capsule 250 mcg PO DAILY supplement 05/30/21 [History Last Taken 05/29/21] ezetimibe 10 mg tablet 10 mg PO QHS cholesterol 05/30/21 [History Last Taken 05/29/21] ferrous sulfate 325 mg (65 mg iron) tablet 325 mg PO DAILY 05/30/21 [History Last Taken 05/30/21] gabapentin 600 mg tablet 600 mg PO QHS 05/30/21 [History Last Taken 05/29/21] insulin glargine U-300 conc 300 unit/mL (3 mL) subcutaneous pen (Toujeo Max U-300 SoloStar) 18 unit subcut DAILY dm 05/30/21 [History Last Taken 05/30/21] omeprazole 40 mg capsule,delayed release 40 mg PO BID gerd 05/30/21 [History Last Taken 05/30/21] furosemide 40 mg tablet 40 mg PO DAILY PRN PRN edema #0 tabs 06/01/21 [Rx Last Taken 05/30/21] allopurinol 300 mg tablet 100 mg PO DAILY 03/27/22 [History Last Taken Unknown] coenzyme Q10 10 mg capsule (Co Q-10) PO 03/27/22 [History Last Taken Unknown] glipizide 5 mg tablet 5 mg PO BID 03/27/22 [History Last Taken Unknown] insulin glargine U-300 conc 300 unit/mL (1.5 mL) subcutaneous pen (Toujeo SoloStar U-300 Insulin) 30 unit subcut DAILY 03/27/22 [History Last Taken Unknown] apixaban 5 mg tablet (Eliquis) 5 mg PO BID 09/18/23 [History Last Taken Unknown] bumetanide 1 mg tablet 3 mg PO DAILY 09/18/23 [History Last Taken Unknown] empagliflozin 10 mg tablet (Jardiance) 10 mg PO DAILY 09/18/23 [History Last Taken Unknown] insulin lispro 100 unit/mL subcutaneous solution (Humalog U-100 Insulin) 20 unit subcut TID 09/18/23 [History Last Taken Unknown] metoprolol tartrate 25 mg tablet 25 mg PO BID 09/18/23 [History Last Taken Unknown] tadalafil 20 mg tablet 20 mg PO DAILY 09/18/23 [History Last Taken Unknown] tirzepatide 12.5 mg/0.5 mL subcutaneous pen injector (Mounjaro) 12.5 mg subcut QWEEK 09/18/23 [History Last Taken Unknown] Allergy/AdvReac Type Severity Reaction Status Date / Time azithromycin [From Zithromax] Allergy Unknown Verified 05/05/16 19:38 codeine Allergy Rash Verified 03/27/22 09:54 Sulfa (Sulfonamide Allergy Unknown Verified 05/05/16 19:38 Antibiotics) Surgical History Hx of tonsillectomy Social History Smoking Status: Former smoker Vital Signs Vital Signs Vital Signs: 09/18/23 14:09 Temperature 96.1 F L Temperature Source Temporal Pulse Rate 75 Blood Pressure 141/61 H Blood Pressure Mean 87 Blood Pressure Source Monitor Blood Pressure Position Sitting Blood Pressure Location Left Arm Oxygen Delivery Method Room Air Weight Weight: 279 lb Body Mass Index (BMI) 39.4 Physical Exam Const alert, oriented x3 and no apparent distress General Appearance: cooperative and comfortable HEENT normocephalic, head/scalp atraumatic, hearing grossly normal bilaterally and external ears normal Eyes EOMs intact bilaterally General Eye: normal appearance of both eyes Neck General: normal visual inspection and trachea midline Resp Effort and Inspection: able to speak in complete sentences; Negative for respiratory distress, labored, stridor, retractions, uses accessory muscles or audible wheezes Cardio regular rate and regular rhythm Extremity Extremity Narrative: Bilateral lower extremities with 1+ edema, lipodermatosclerosis, hemosiderin deposition. Skin Wounds: wounds noted Wound Narrative: Scattered prior ulcerations which has since epithelialized. No weeping, erythema, warmth, open areas at this time. Neuro oriented x3, CN's II-XII intact bilaterally, moves all extremities and no focal motor deficits Speech: speech normal Psych mental status grossly normal Appearance: grossly normal Attitude: calm and engaged Activity / Motor Behavior: appropriate eye contact Speech: normal speech Mood & Affect: euthymic mood Judgement: judgement good Debridement Note Debridement Note No debridement was completed: No debridement was completed today Post-Debridement Measurements and Additional Note: Post-Debridement Measurements/Treatment - Nurse 1 - General Ulcer Assessment Start: 09/18/23 14:08 Freq: Status: Active Protocol: CHRISTOFER Activity Type Activity Date Activity User E-sign Co-sign Detail Recorded Client Recorded Date Recorded By Document 09/18/23 14:09 Desktop 09/18/23 14:22 09/18/23 14:09 - Today's Visit Information Type of service Initial Visit Arrival Mode Ambulatory Transfer Assistance None Patient Identification Verified (Name & Yes ) Patient Requires Transmission-Based No Precautions Height and Weight Height 5 ft 10.5 in Weight 279 lb Weight in Pounds 279.0 lbs Weight Measurement Method Estimated by Patient Body Mass Index (BMI) 39.4 BMI Classification Obese BSA - Sasha 2.42 Vital Signs Temperature (97.8 F-99.1 F) 96.1 F L Temperature Source Temporal Pulse Rate (60-100) 75 Pulse Location Monitor Oxygen Delivery Method Room Air Blood Pressure (90/60-120/80) 141/61 H Blood Pressure Mean 87 Source Monitor Position Sitting Blood Pressure Location Left Arm History Since Last Visit- (Skip if this is Patient's initial visit) Left Footwear Regular Shoe Right Footwear Regular Shoe Pain Scale: 0-10 Numeric Is Patient Pain Free? Yes Lower Extremity Assessment/ Foot Assessment/ Toe Nail Assessment Right -Claudication Assessment Rest Pain -Popliteal Doppler Multiphasic -Posterior Tibial Doppler Multiphasic -Dorsalis Pedis Palpable Yes -Dorsalis Pedis Doppler Multiphasic -Extremity Color Hyperpigmented, Hemosiderin -Hair Growth on Legs No -Hair Growth on Toes No -Dependent Rubor No -Blanched when Elevated No -Other Deformity No -Prior Foot Ulcer No -Charcot Joint No -Prior Amputation No -Thick No -Discolored No -Deformed No -Improper Length & Hygeine No Left -Claudication Assessment Rest Pain -Popliteal Doppler Multiphasic -Posterior Tibial Palpable Yes -Posterior Tibial Doppler Multiphasic -Dorsalis Pedis Palpable Yes -Dorsalis Pedis Doppler Multiphasic -Extremity Color Hyperpigmented, Hemosiderin -Hair Growth on Legs No -Hair Growth on Toes No -Temperature of Extremity Warm -Capillary Refill Less than 3 Seconds -Blanched when Elevated No -Other Deformity No -Prior Foot Ulcer No -Charcot Joint No -Prior Amputation No -Toe Nail Assessment Not Applicable -Thick No -Discolored No -Deformed No Communication Assessment Preferred language Slovak Restrooms Or Lounges Maid Required No Able to Read Yes Able to Write Yes Communication Tools None Right Hearing Abillity Hard of Hearing ,Use of Hearing Aid Left Hearing Abillity Hard of Hearing ,Use of Hearing Aid Visual Assistive Devices Glasses Culture/Confucianist/Hoe Runner Cultural/Confucianist Needs that may affect No Treatment Plan Would you allow our hospital forming machine operator to No meet you for the purpose of spiritual/ emotional support? Hoe Runner to contact place of adventist No WC - Nurse 1 - General Ulcer Measurement Start: 09/18/23 14:08 Freq: Status: Active Protocol: Activity Type Activity Date Activity User E-sign Co-sign Detail Recorded Client Recorded Date Recorded By Document 09/18/23 14:09 Desktop 09/18/23 14:22 09/18/23 14:09 Wound Center Nurse 1 Lower Limb Edema Present Yes Right Calf (cm) 42 Right Ankle (cm) 24.2 Left Calf (cm) 41.5 Left Ankle (cm) 23.3 - Nurse 3 - General Ulcer D/C NN Start: 09/18/23 14:08 Freq: Status: Active Protocol: Activity Type Activity Date Activity User E-sign Co-sign Detail Recorded Client Recorded Date Recorded By Document 09/18/23 14:52 [email or web address] 09/18/23 14:53 09/18/23 14:52 Pain Scale: 0-10 Numeric Is Patient Pain Free? Yes Teaching: Wound Center compression -Person Taught Patient -Teaching Method Discussion -Response to teaching Verbalize understanding - Visit Discharge Discharge Condition Stable Ambulatory Status Ambulatory Transportation Private Auto Medication Reconcilliation completed & Yes provided to patient/care provider Clinical Summary of Care Provided Yes Charges/Coding Visit Charges Office Visits / Consults: 28062 OV L3 Est Assessment/Plan Assessment/Plan (1) Edema, lower extremity: CODE(S): R60.0 - Localized edema (2) Lipodermatosclerosis of both lower extremities: CODE(S): M79.3 - Panniculitis, unspecified PLAN: Plan No open active wounds on exam today. I do recommend obtaining a new pair of measured compression stockings as his current are likely too old to really be effective. I have provided him with a prescription for these and we also discussed available donning/doffing tools to help with applying the compression stockings. As he reports his legs are still sensitive from recent wounds/cellulitis, we have supplied him with some Tubigrip's today which are probably more comfortable than the compression stockings. He is instructed to wear the Tubigrip's daily until he obtains his new compression stockings. I have also ordered a venous reflux study and do recommend the patient follow-up with us in the vascular office. Given his history and persistent symptoms, I think he may warrant evaluation for central venous compression. My office will call him to make an appointment. Patient is discharged from wound care center at this time. He is encouraged to return if any of the wounds reopen or new ones develop.
--- NOTE | 2023-09-25 14:57 | VDLE_ITS ---
Reason For Study: venous insufficiency RIGHT LEFT CFV is compressible, spontaneous, phasic, CFV is compressible, spontaneous, phasic, competent and demonstrates normal competent, and demonstrates normal augmentation. augmentation. FV is compressible, spontaneous, phasic, FV is compressible, spontaneous, phasic, competent and demonstrates normal competent and demonstrates normal augmentation. augmentation. POP V is compressible, spontaneous, phasic, POP V is compressible, spontaneous, phasic, competent and demonstrates normal competent and demonstrates normal augmentation. augmentation. T/P Trunk is compressible. T/P Trunk is compressible. PTV is compressible. PTV is compressible. RT PerV is compressible. LT PerV is compressible. SFJ is competent and measures .52 cm. SFJ is competent and measures .78 cm. GSV proximal thigh measures .25 x .27 cm. GSV at knee measures .24 x .28 cm. GSV at knee measures .55 x .55 cm. GSV below knee is competent. GSV INCOMPETENT throughout for greater than SSV proximal calf is competent and 0.5 seconds. measures .28 x .38 cm. Segment of the GSV in the mid thigh is ASV proximal thigh is INCOMPETENT for greater occluded S/P venous injections per pt. than 0.5 seconds and measures .41 x .42 cm. Automatic Spreader Operator V 15 cm proximal to the medial GSV in the thigh is occluded S/P venous malleolus is incompetent for greater than .5 injections per pt. seconds. SSV proximal calf is INCOMPETENT for greater than 0.5 seconds and measures .28 x .33 cm. Procedure This is a venous duplex using B-mode, color flow and spectral Doppler. Exam performed in department. The exam was diagnostic. VL/Venous Duplex US - Jose Extrem Interpretation Summary Deep veins of the bilateral lower extremities are patent and compressible segme ntally. There is no evidence of bilateral lower extremity deep vein thrombosis. Positive for reflux in the right great saphenous vein, medial calf private branch exchange operator, and small saphenous vein Positive for reflux in the left accessory saphenous vein Ordering Physician: Joelle Gonzáles Performed By: Oleg Contreras RVT
== END 2023-10-16 23:59 | disposition home or self-care (01) ==
LOC: WC 15:00
PROVIDERS: PCP Preventive Medicine Occupational Medicine; Referring Provider Dermatology; Visit Provider Physician Assistant
DX: I87.2 Venous insufficiency (chronic) (peripheral) (principal); I48.91 Unspecified atrial fibrillation; Z79.4 Long term (current) use of insulin; I10 Essential (primary) hypertension; R60.0 Localized edema; Z79.82 Long term (current) use of aspirin; Z79.899 Other long term (current) drug therapy; Z87.891 Personal history of nicotine dependence; Z79.01 Long term (current) use of anticoagulants
CPT/HCPCS: 93970; 99213; G0463

== ENCOUNTER 2023-11-20 07:00 | Day surgery (SDC) | payer MEDICARE, OTHER, SELFPAY ==
[2023-11-19 09:21] VITALS: BMI 41.1
[2023-11-20 07:16] LABS: Hemoglobin 12.1 g/dL (13.0-16.5); Mean Corp Hgb Conc 32.7 g/dL (32-36); Mean Corpuscular Hgb 31.8 pg (27.0-32.0); Mean Corpuscular Volume 97.4 fL (80-94); Mean Platelet Vol. 8.4 fl (6.2-12.0); Platelet Count 168 K/mm3 (150-450); RBC Distribution Width CV 17.5 % (11.6-14.6); RBC Distribution Width SD 62.2 fl (35.1-43.9); White Blood Count 6.5 K/mm3 (4.4-11.0)
[2023-11-20 07:30] LABS: Anion Gap 9 (5-15); BUN 64 mg/dL (7-18); Calcium,Total 9.3 mg/dL (8.5-10.1); Chloride 92 mmol/L (98-107); EST Glomerular Filtration Rate 21 mL/min (>60); Est Glom Filt Rate - Afr Amer 25 mL/min (>60); Estimated Creatinine Clearance 22.81 ml/min; Glucose 181 mg/dL (74-106); Potassium 3.5 mmol/L (3.5-5.1); Sodium Level 137 mmol/L (136-145)
--- NOTE | 2023-11-20 08:18 | PCM.HP.STD ---
HPI - General HPI Narrative SMITA FAJARDO, is a 68 M who presents with recurrent venous stasis wounds over previous decades. He has undergone treatment of superficial reflux and despite this he continues to have recurrent wounds. He presents now for venogram to assess for central obstruction [facility]LY [facility] Medical History Asthma Atrial fibrillation BiPAP (biphasic positive airway pressure) dependence Diabetes Former smoker Hernia Hypertension Irregular heart beat Sleep apnea Home Medications aspirin 81 mg chewable tablet 81 mg PO DAILY@0800 05/05/16 [History Last Taken 05/30/21] tramadol 50 mg tablet 100 mg PO Q6H PRN PRN Pain 05/06/16 [History Last Taken 11/20/23] ascorbic acid (vitamin C) 1,000 mg tablet 1 g PO DAILY supplemetn 05/30/21 [History Last Taken 05/30/21] cholecalciferol (vitamin D3) 250 mcg (10,000 unit) capsule 250 mcg PO DAILY supplement 05/30/21 [History Last Taken 11/20/23] ezetimibe 10 mg tablet 10 mg PO QHS cholesterol 05/30/21 [History Last Taken 05/29/21] ferrous sulfate 325 mg (65 mg iron) tablet 325 mg PO DAILY 05/30/21 [History Last Taken 05/30/21] gabapentin 600 mg tablet 600 mg PO QHS 05/30/21 [History Last Taken 05/29/21] omeprazole 40 mg capsule,delayed release 40 mg PO BID gerd 05/30/21 [History Last Taken 11/20/23] furosemide 40 mg tablet 40 mg PO DAILY PRN PRN edema #0 tabs 06/01/21 [Rx Last Taken 05/30/21] coenzyme Q10 10 mg capsule (Co Q-10) 10 mg PO DAILY 03/27/22 [History Last Taken Unknown] glipizide 5 mg tablet 5 mg PO BID 03/27/22 [History Last Taken Unknown] insulin glargine U-300 conc 300 unit/mL (1.5 mL) subcutaneous pen (Toujeo SoloStar U-300 Insulin) 30 unit subcut DAILY 03/27/22 [History Last Taken Unknown] apixaban 5 mg tablet (Eliquis) 5 mg PO BID 09/18/23 [History Last Taken 11/19/23] bumetanide 1 mg tablet 3 mg PO DAILY 09/18/23 [History Last Taken Unknown] empagliflozin 10 mg tablet (Jardiance) 10 mg PO DAILY 09/18/23 [History Last Taken Unknown] insulin lispro 100 unit/mL subcutaneous solution (Humalog U-100 Insulin) 20 unit subcut TID 09/18/23 [History Last Taken Unknown] metoprolol tartrate 25 mg tablet 25 mg PO BID 09/18/23 [History Last Taken 11/20/23] tadalafil 20 mg tablet 20 mg PO DAILY 09/18/23 [History Last Taken 11/20/23] tirzepatide 12.5 mg/0.5 mL subcutaneous pen injector (Mounjaro) 12.5 mg subcut QWEEK 09/18/23 [History Last Taken Unknown] Allergy/AdvReac Type Severity Reaction Status Date / Time Sulfa (Sulfonamide Allergy Severe Hives Verified 10/08/23 16:03 Antibiotics) codeine Allergy Mild Rash Verified 10/08/23 16:03 Surgical History Hx of tonsillectomy Social History Smoking Status: Former smoker ROS Constitutional Constitutional: Denies chills, fever(s), frequent falls, lethargy or weakness Eyes Eyes: Denies blind spots, change in vision or loss of vision ENT HEENT: Denies bleeding gums, hoarseness or sore throat Cardiovascular Cardiovascular: Denies abdominal pain, bluish discoloration of hand/feet, chest pain with activity, claudication, cold extremities, cyanosis, dyspnea on exertion, erythema on extremities, irregular heart rhythm, leg edema, leg ulcers, numbness in extremities or weakness in extremities Respiratory/Chest Respiratory/Chest: Denies cough, excessive phlegm production, shortness of breath at rest, shortness of breath with exertion or wheezing Gastrointestinal Gastrointestinal: Denies anorexia, change in stool character, constipation, diarrhea, melena or rectal bleeding Genitourinary Genitourinary: Denies dysuria or hematuria Musculoskeletal Musculoskeletal: Denies abnormal gait Integumentary Integumentary: Reports other Details: ; Denies erythema, non-healing lesions or wounds Neurologic Neurologic: Denies abnormal speech, focal weakness, headache(s), loss of vision, numbness, paresthesias or sensory deficit Hematologic/Lymphatic Hematologic/Lymphatic: Denies easy bleeding, easy bruising or lymphadenopathy Vital Signs Vital Signs Vital Signs: Weight Weight: 287 lb Body Mass Index (BMI) 41.1 Physical Exam Const alert, oriented x3, no apparent distress and healthy appearing General Appearance: cooperative; Negative for combative or lethargic Orientation / Consciousness: awake Exam Limitations: no limitations HEENT Head and Scalp: normocephalic and atraumatic Eyes EOMs intact bilaterally General Eye: normal appearance of both eyes Neck full ROM, no lymphadenopathy, thyroid normal and No no carotid bruits General: trachea midline; Negative for lymphadenopathy or tenderness Thyroid: thyroid normal Lymph Lymphatic: Negative for no lymphadenopathy noted Resp normal respiratory effort, no use of accessory muscles and clear to auscultation bilaterally Effort and Inspection: Negative for labored, stridor or audible wheezes Cardio regular rate, regular rhythm and no murmurs Peripheral Pulses: brachial pulses present, radial pulses present, femoral pulses present, popliteal pulses present, posterior tibial pulses present and dorsalis pedis pulses present Back/Spine Cervical Spine: cervical ROM normal Extremity full ROM, normal capillary refill and no clubbing, cyanosis or edema Skin no rashes or lesions noted and no wounds Neuro oriented x3, CN's II-XII intact bilaterally, no focal motor deficits and no sensory deficits noted Psych thought process normal, cooperative, affect normal, speech normal and activity/motor behavior normal Results Lab / Micro Data 11/20/23 07:06 11/20/23 07:06 Labs: Laboratory Results - last 24 hr 11/20/23 07:06: WBC 6.5, RBC 3.80 L, Hgb 12.1 L, Hct 37.0 L, MCV 97.4 H, MCH 31.8, MCHC 32.7, RDW Std Deviation 62.2 H, RDW Coeff of Miguel 17.5 H, Plt Count 168, MPV 8.4, Sodium 137, Potassium 3.5, Chloride 92 L, Carbon Dioxide 36.0 H, Anion Gap 9, BUN 64 H, Creatinine 3.20 H, Estim Creat Clear Calc 22.81, Est GFR (MDRD) Af Amer 25 L, Est GFR (MDRD) Non-Af 21 L, BUN/Creatinine Ratio 20.0, Glucose 181 H, Calcium 9.3 Assessment & Plan Assessment/Plan (1) Venous insufficiency of both lower extremities: PLAN: -venogram -will hydrate pre-post procedure
--- NOTE | 2023-11-20 10:01 | OP.PCM_ITS ---
Report of Operation Date of Procedure: 11/20/23 Pre-Operative Diagnosis: venous insufficiency with [facility] Post-Operative Diagnosis: same Surgery/Procedure Performed:: venogram IVC IVUS IVC, bilateral common iliac veins, bilateral external iliac veins Angioplasty/stent right common/external iliac vein Surgeon: Atul Florian Type of Anesthesia: Local and Sedation,Conscious Estimated Blood Loss (mL): 4 Description of Procedure: HPI: Patient is a 68-year-old male with recurrent bilateral lower extremity venous ulcerations present intermittently for the past several decades. He is previous undergone bilateral superficial vein reflux treatment including some form of chemical ablation and potentially mechanical stripping. He continues to have recurrent wounds more significant over the last several years despite compression. He presents now for venogram to assess and possibly treat central venous compression. Description of procedure: Upon obtaining form consent and verification correct patient procedure site patient taken the Infectious Waste Technician where he was positioned prepped and draped in usual fashion. Time was performed consultation admi nistered Versed and fentanyl. Skin overlying the right common femoral vein was anesthetized 1% lidocaine and the vessel accessed in retrograde fashion with micropuncture needle wire under ultrasound guidance. This was then exchanged for micropuncture sheath through which injection ilio caval venogram was performed revealing satisfactory positioning no extravasation dissection. This also revealed what appeared to be compression in the external iliac vein. Through the micropuncture sheath a [employer] wire was advanced the micropuncture sheath exchanged out for a short 10 Martiniquais sheath. Next skin over the left common femoral vein was anesthetized and the vessel accessed and ultrasound guidance with a micropuncture needle wire. This then exchanged out for micropuncture sheath through which injection ilio caval venogram was performed revealed widening of the common iliac vein. Through the micropuncture sheath a glide advantage wire was advanced and the micropuncture sheath exchanged out for a 10 Martiniquais sheath. Patient was then heparinized allowed to circulate for 3 minutes. Intravascular sound was then advanced via the right femoral access sheath and recorded pullback of the IVC, right common iliac vein, right external iliac vein was performed. This revealed normal caliber vena cava down to the confluence and normal caliber superior aspect of the common iliac vein. At the mid to distal aspect compression from the iliac artery caused greater than 50% compression of the distal common iliac and proximal external iliac vein. Ultrasound probe was then withdrawn and advanced to the left femoral access sheath and recorded pullback of the IVC, left common iliac, left external vein was performed. This revealed a dual system of the left common iliac vein which explains the widening on venogram but there was no significant compression present. Reference vessel sizes of the right common and external iliac veins were then obtained from the intravascular sound imaging and a Bard Venovo 16 x 80 venous stent was brought in the field prepped for manufactures instructions. This was then advanced via the right femoral access sheath and centered on the area of compression with adequate overlap above and below. This was then deployed in position and postdilated with a 16 x 40 [place] XXL angioplasty balloon. Balloon was then withdrawn and intravascular sound probe readvanced and recorded pullback revealed satisfactory placement with no encroachment on the IVC confluence, satisfactory resolution of the compression and good stent wall apposition throughout. Wires and catheters were withdrawn and 2-0 silk suture U-stitch placed in each of the access sites and the sheath withdrawn followed by 5 minutes of manual pressure. Patient was then taken recovery room for bedrest prior to discharge home. Grafts/Implants Used: Bard Venovo 16x80 stent
== END 2023-11-20 12:43 | disposition home or self-care (01) ==
PROVIDERS: PCP Preventive Medicine Occupational Medicine; Referring Provider Surgery Trauma Surgery; Visit Provider Surgery Trauma Surgery
DX: I87.1 Compression of vein (principal); I48.91 Unspecified atrial fibrillation; E11.9 Type 2 diabetes mellitus without complications; I87.2 Venous insufficiency (chronic) (peripheral); Z87.891 Personal history of nicotine dependence; I10 Essential (primary) hypertension; J45.909 Unspecified asthma, uncomplicated; Z79.01 Long term (current) use of anticoagulants; Z79.899 Other long term (current) drug therapy
CPT/HCPCS: 36010; 36415; 37238; 37252; 37253; 75825; 76937; 80048; 85027; 99152; 99153; C1725; C1753; C1769; C1894; J7040; Q9967; C1876

== ENCOUNTER → 2025-10-11 | Outpatient (CLI) | payer MEDICARE, SELFPAY ==
[2025-10-11 13:40] LABS: Hematocrit 32.0 % (40-54); Hemoglobin 10.3 g/dL (13.0-16.5); Immature Granulocytes Count 0.030 X10^3/uL (0.0-0.0); Mean Corp Hgb Conc 32.2 g/dL (32-36); Mean Corpuscular Volume 94.7 fL (80-94); Mean Platelet Vol. 10.0 fl (6.2-12.0); NRBC Flagged by Analyzer 0 % (0-5); Platelet Count 154 K/mm3 (150-450); RBC Distribution Width CV 17.4 % (11.6-14.6); RBC Distribution Width SD 60.5 fl (35.1-43.9); Red Blood Count 3.38 M/mm3 (4.6-6.2); White Blood Count 7.5 K/mm3 (4.4-11.0)
== END | disposition home or self-care (01) ==
LOC: LAB 12:43
PROVIDERS: PCP Nurse Practitioner Family; Referring Provider Physician Assistant; Visit Provider Physician Assistant
DX: L03.90 Cellulitis, unspecified (principal)
CPT/HCPCS: 36415; 85025

== ENCOUNTER → 2025-10-20 | Outpatient (CLI) | payer MEDICARE, SELFPAY | END | disposition home or self-care (01) | PROVIDERS: PCP Nurse Practitioner Family; Referring Provider Physician Assistant; Visit Provider Physician Assistant | DX: I87.1 Compression of vein (principal) | CPT/HCPCS: 93978 ==